=== PATIENT | male | born 1970 | race African-American/Black ===

== ENCOUNTER 2018-03-20 09:13 | Day surgery (SDC) | payer OTHER ==
[2018-03-20] MEDS: NS 1,000 ML IV (09:25)
[2018-03-20] MEDS ORDERED: PROPOFOL 200 MG/20 ML VIAL As Ordered ×4 (09:38→10:30)
== END 2018-03-20 10:32 | disposition home or self-care (01) ==
LOC: M OPP 09:13
DX: K64.8 Other hemorrhoids (principal); K63.89 Other specified diseases of intestine; D12.4 Benign neoplasm of descending colon; K92.1 Melena; F32.9 Major depressive disorder, single episode, unspecified; F41.9 Anxiety disorder, unspecified; G47.30 Sleep apnea, unspecified; R51 Headache; F17.210 Nicotine dependence, cigarettes, uncomplicated; Z98.890 Other specified postprocedural states
CPT/HCPCS: 45385

== ENCOUNTER 2021-08-11 17:19 | Emergency (ER) | payer OTHER ==
[~2021-08-11] VITALS: Ht 188 cm; Wt 110.8 kg
[~2021-08-11 17:19] MED LIST: FLUO20CA22 PO
[2021-08-11] MEDS ORDERED: ASPIRIN 81 MG CHEW TABLET PO ONE (18:00)
[2021-08-11] MEDS ORDERED: NITROGLYCERIN 0.4 MG SUBL TABLET As Ordered ONE (18:01)
[2021-08-11] MEDS ORDERED: ASPIRIN 81 MG CHEW TABLET As Ordered ONE (18:01)
[2021-08-11] MEDS: NITROGLYCERIN 0.4 MG SUBL TABLET SL PRN ×3 (18:06→18:44)
[2021-08-11] MEDS ORDERED: ISOVUE-370 76% 100ML VIAL As Ordered ONE (18:15)
[2021-08-11 18:16] LABS: BASO # 0.1 10^3/uL (0.0-0.2); BASO % 0.8 % (0.0-1.0); EOS # 0.1 10^3/uL (0.0-0.5); EOS % 0.8 % (0.0-3.0); HEMATOCRIT 43.7 % (42.0-52.0); HEMOGLOBIN 14.6 g/dl (13.5-17.5); LYMPH # 1.6 10^3/uL (1.5-5.0); LYMPH % 16.3 % (24.0-44.0); MEAN CORPUSCULAR HEMOGLOBIN 28.3 pg (27.0-33.0); MEAN CORPUSCULAR HGB CONC 33.4 g/dl (32.0-36.5); MEAN CORPUSCULAR VOLUME 84.9 fl (80.0-96.0); MONO # 0.6 10^3/uL (0.0-0.8); MONO % 6.3 % (2.0-8.0); NEUTROPHILS # 7.6 10^3/uL (1.5-8.5); NEUTROPHILS % 75.5 % (36.0-66.0); PLATELET COUNT, AUTOMATED 207 10^3/uL (150-450); RED BLOOD COUNT 5.15 10^6/uL (4.30-6.10); WHITE BLOOD COUNT 10.1 10^3/uL (4.0-10.0)
[2021-08-11 18:27] LABS: PROTHROMBIN TIME 13.6 SECONDS (12.7-14.5)
[2021-08-11 18:28] LABS: PARTIAL THROMBOPLASTIN TIME 27.6 SECONDS (25.9-37.0)
[2021-08-11] MEDS ORDERED: LABETALOL 100MG/20ML VIAL IV STA ×2 (18:42→19:10)
[2021-08-11] MEDS ORDERED: LABETALOL 100MG/20ML VIAL As Ordered ONE (18:43)
[2021-08-11] MEDS ORDERED: TENECTEPLASE 50 MG KIT (TNKase) (J3101 PER 1MG) IV ONE (18:45)
[2021-08-11] MEDS ORDERED: HEPARIN SOD (PORCINE) 5000UNITS/ML 1ML VIAL/SYRINGE IV ONE (18:45)
[2021-08-11] MEDS ORDERED: HEPARIN DRIP 25,000 UNITS in IV 1 EA IV SCH (18:45)
[2021-08-11] MEDS ORDERED: CLOPIDOGREL 300 MG TAB (PLAVIX) PO ONE (18:45)
[2021-08-11 18:48] LABS: ALBUMIN 3.9 GM/DL (3.2-5.2); ALT/SGPT 42 U/L (12-78); BILIRUBIN,DIRECT < 0.1 MG/DL (0.0-0.2); BILIRUBIN,TOTAL 0.3 MG/DL (0.2-1.0); BLOOD UREA NITROGEN 14 MG/DL (7-18); CALCIUM LEVEL 9.3 MG/DL (8.5-10.1); CARBON DIOXIDE LEVEL 26 MEQ/L (21-32); CHLORIDE LEVEL 108 MEQ/L (98-107); CK-MB VALUE MASS 1.9 NG/ML (<3.6); CPK CREATINE PHOSPHOKINASE 220 U/L (39-308); CREATININE FOR GFR 1.05 MG/DL (0.70-1.30); FREE T4 0.87 NG/DL (0.76-1.46); GLOMERULAR FILTRATION RATE > 60.0 (>60); GLUCOSE, FASTING 95 MG/DL (70-100); LIPASE 88 U/L (73-393); MB/CK RELATIVE INDEX 0.86 (< OR =4); POTASSIUM SERUM 3.9 MEQ/L (3.5-5.1); SODIUM LEVEL 142 MEQ/L (136-145); TOTAL PROTEIN 7.5 GM/DL (6.4-8.2); TROPONIN I 0.06 NG/ML (< 0.10)
[2021-08-11 18:51] LABS: RSV AMPLIFICATION NEGATIVE (NEGATIVE)
[2021-08-11 20:18] VITALS: BP 185/116
[2021-08-11 20:19] VITALS: BP 171/102
--- NOTE | 2021-08-11 20:22 | REPVR ---
PROCEDURE INFORMATION: Exam: CTA Chest With Contrast Exam date and time: 08/11/2021 6:41 PM Age: 51 years old Clinical indication: Pain; Shortness of breath; Angina pectoris; Additional info: Chest pain TECHNIQUE: Imaging protocol: Computed tomographic angiography of the chest with contrast. 3D rendering (Not supervised by radiologist): MIP and/or 3D reconstructed images were created by the technologist. Radiation optimization: All CT scans at this facility use at least one of these dose optimization techniques: automated exposure control; mA and/or kV adjustment per patient size (includes targeted exams where dose is matched to clinical indication); or iterative reconstruction. Contrast material: ISOVUE 370; Contrast volume: 100 ml; Contrast route: INTRAVENOUS (IV); COMPARISON: No relevant prior studies available. FINDINGS: Pulmonary arteries: No pulmonary embolism. Aorta: The thoracic aorta is intact and patent. There is no thoracic aortic aneurysm, pseudoaneurysm, penetrating atherosclerotic ulcer, intramural hematoma, or dissection. Trachea: Normal. Bronchial tree: Normal. Lungs: There is mild dependent atelectasis in both lower lobes. The lungs are otherwise clear. There is no lung consolidation or mass. No emphysematous changes or interstitial lung disease is noted. Pleural spaces: Normal. No pneumothorax or pleural effusion. Heart: No cardiomegaly or pericardial effusion. The ratio of the diameter of the right ventricle to the diameter of the left ventricle measures less than 1, which is within normal limits and there is no CT evidence for a right ventricular strain. Mediastinal space: No mediastinal mass, fluid collection, or pneumomediastinum. Lymph nodes: No enlarged lymph nodes. Liver: There is a 9 mm cyst in segment 2 of the left hepatic lobe, for which imaging follow-up is not necessary. The liver was not fully imaged. Spleen: Unremarkable. No splenomegaly is noted. Adrenal glands: Normal. No adrenal mass is noted. Bones/joints: There is no fracture or dislocation. No suspicious osteolytic or osteoblastic lesion. Soft tissues: Unremarkable. IMPRESSION: 1. No acute findings in the chest. No pulmonary embolism. 2. No thoracic aortic aneurysm, pseudoaneurysm, intramural hematoma, penetrating atherosclerotic ulcer, or dissection. Electronically signed by: Balta Lamar On 08/11/2021 20:21:40 PM
--- NOTE | 2021-08-12 20:01 | ECGEPIP ---
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
== END 2021-08-11 20:20 | disposition short-term general hospital (02) ==
LOC: M ED 17:19
DX: I21.3 ST elevation (STEMI) myocardial infarction of unspecified site (principal); F41.9 Anxiety disorder, unspecified; F32.9 Major depressive disorder, single episode, unspecified; F17.200 Nicotine dependence, unspecified, uncomplicated; G47.33 Obstructive sleep apnea (adult) (pediatric); Z79.899 Other long term (current) drug therapy
CPT/HCPCS: 71275; 80047; 80048; 80076; 82550; 82553; 83690; 84439; 84443; 84484; 85025; 85610; 85730; 87631; 93005; 93041; 94760; 96365; 96375; 99285; J1644; J3101; Q9967

== ENCOUNTER 2021-11-05 06:39 | Emergency (ER) | payer OTHER ==
[~2021-11-05] VITALS: Ht 188 cm; Wt 112.6 kg
--- OUTSIDE RECORDS SUMMARY | 2021-11-05 06:45 | CCD ---
Author Author [facility] Organization [facility] Address Unknown Phone Unavailable Care Team Providers Care Mortgage Protection Sales Name Role Phone Jarrett, Akila PAINTING MACHINE OPERATOR Unavailable Unavailable Jarrett, Akila PAINTING MACHINE OPERATOR Unavailable Unavailable Jarrett, Akila PAINTING MACHINE OPERATOR Unavailable Unavailable Jarrett, Akila PAINTING MACHINE OPERATOR Unavailable Unavailable Jarrett, Akila PAINTING MACHINE OPERATOR Unavailable Unavailable Jarrett, Akila PAINTING MACHINE OPERATOR Unavailable Unavailable Jarrett, Akila PAINTING MACHINE OPERATOR Unavailable Unavailable Jarrett, Akila PAINTING MACHINE OPERATOR Unavailable Unavailable Jarrett, Akila PAINTING MACHINE OPERATOR Unavailable Unavailable Jarrett, Akila PAINTING MACHINE OPERATOR Unavailable Unavailable Jarrett, Akila PAINTING MACHINE OPERATOR Unavailable Unavailable Jarrett, Akila PAINTING MACHINE OPERATOR Unavailable Unavailable Jarrett, Akila PAINTING MACHINE OPERATOR Unavailable Unavailable Watson, L Vane PA Unavailable Unavailable Wtason, L Vane PA Unavailable Unavailable Watson, L Vane PA Unavailable Unavailable Watson, L Vane PA Unavailable Unavailable Watson, L Vane PA Unavailable Unavailable Watson, L Vane PA Unavailable Unavailable Watson, L Vane PA Unavailable Unavailable Watson, L Vane PA Unavailable Unavailable Watson, L Vane PA Unavailable Unavailable Watson, L Vane PA Unavailable Unavailable Watson, L Vane PA Unavailable Unavailable Watson, L Vane PA Unavailable Unavailable Watson, L Vane PA Unavailable Unavailable Watson, L Vane PA Unavailable Unavailable Watson, L Vane PA Unavailable Unavailable Watson, L Vane PA Unavailable Unavailable Watson, L Vane PA Unavailable Unavailable Watson, L Vane PA Unavailable Unavailable Watson, L Vane PA Unavailable Unavailable Watson, L Vane PA Unavailable Unavailable Watson, L Vane PA Unavailable Unavailable Watson, L Vane PA Unavailable Unavailable Watson, L Vane PA Unavailable Unavailable Watson, L Vane PA Unavailable Unavailable Watson, L Vane PA Unavailable Unavailable Watson, L Vane PA Unavailable Unavailable Watson, L Vane PA Unavailable Unavailable Awtson, L Vane PA Unavailable Unavailable Watson, L Vane PA Unavailable Unavailable Watson, L Vane PA Unavailable Unavailable Watson, L Vane PA Unavailable Unavailable Watson, L Vane PA Unavailable Unavailable Watson, L Vane PA Unavailable Unavailable Watson, L Vane PA Unavailable Unavailable Watson, L Vane PA Unavailable Unavailable Watson, L Vane PA Unavailable Unavailable Watson, L Vane PA Unavailable Unavailable Watson, L Vane PA Unavailable Unavailable Watson, L Vane PA Unavailable Unavailable Guadarrama, L Angelita RPA Unavailable Unavailable Guadarrama, L Angelita RPA Unavailable Unavailable Guadarrama, L Angelita RPA Unavailable Unavailable Guadarrama, L Angelita RPA Unavailable Unavailable Guadarrama, L Angelita RPA Unavailable Unavailable Guadarrama, L Angelita RPA Unavailable Unavailable Guadarrama, L Angelita RPA Unavailable Unavailable Guadarrama, L Angelita RPA Unavailable Unavailable Guadarrama, L Angelita RPA Unavailable Unavailable Guadarrama, L Angelita RPA Unavailable Unavailable Guadarrama, L Angelita RPA Unavailable Unavailable Guadarrama, L Angelita RPA Unavailable Unavailable Guadarrama, L Angelita RPA Unavailable Unavailable Guadarrama, L Angelita RPA Unavailable Unavailable Guadarrama, L Angelita RPA Unavailable Unavailable Guadarrama, L Angelita RPA Unavailable Unavailable Guadarrama, L Angelita RPA Unavailable Unavailable Guadarrama, L Angelita RPA Unavailable Unavailable Guadarrama, L Angelita RPA Unavailable Unavailable Guadarrama, L Angelita RPA Unavailable Unavailable Guadarrama, L Angelita RPA Unavailable Unavailable Guadarrama, L Angelita RPA Unavailable Unavailable Guadarrama, L Angelita RPA Unavailable Unavailable Guadarrama, L Angelita RPA Unavailable Unavailable Guadarrama, L Angelita RPA Unavailable Unavailable Guadarrama, L Angelita RPA Unavailable Unavailable Guadarrama, L Angelita RPA Unavailable Unavailable Guadarrama, L Angelita RPA Unavailable Unavailable Guadarrama, L Angelita RPA Unavailable Unavailable Guadarrama, L Angelita RPA Unavailable Unavailable Guadarrama, L Angelita RPA Unavailable Unavailable Guadarrama, L Angelita RPA Unavailable Unavailable HAYLEY, S AYMAN MD Unavailable Unavailable HAYLEY, S AYMAN MD Unavailable Unavailable HAYLEY, S AYMAN MD Unavailable Unavailable HAYLEY, S AYMAN MD Unavailable Unavailable HAYLEY, S AYMAN MD Unavailable Unavailable HAYLEY, S AYMAN MD Unavailable Unavailable HAYLEY, S AYMAN MD Unavailable Unavailable HAYLEY, S AYMAN MD Unavailable Unavailable HAYLEY, S AYMAN MD Unavailable Unavailable HAYLEY, S AYMAN MD Unavailable Unavailable HAYLEY, S AYMAN MD Unavailable Unavailable HAYLEY, S AYMAN MD Unavailable Unavailable HAYLEY, S AYMAN MD Unavailable Unavailable HAYLEY, S AYMAN MD Unavailable Unavailable HAYLEY, S AYMAN MD Unavailable Unavailable HAYLEY, S AYMAN MD Unavailable Unavailable HAYLEY, S AYMAN MD Unavailable Unavailable HAYLEY, S AYMAN MD Unavailable Unavailable HAYLEY, S AYMAN MD Unavailable Unavailable HAYLEY, S AYMAN MD Unavailable Unavailable HAYLEY, S AYMAN MD Unavailable Unavailable HAYELY, S AYMAN MD Unavailable Unavailable HAYLEY, S AYMAN MD Unavailable Unavailable HAYLEY, S AYMAN MD Unavailable Unavailable HAYLEY, S AYMAN MD Unavailable Unavailable HAYLEY, S AYMAN MD Unavailable Unavailable HAYLEY, S AYMAN MD Unavailable Unavailable HAYLEY, S AYMAN MD Unavailable Unavailable HAYLEY, S AYMAN MD Unavailable Unavailable HAYLEY, S AYMAN MD Unavailable Unavailable HAYLEY, S AYMAN MD Unavailable Unavailable HAYLEY, S AYMAN MD Unavailable Unavailable HAYLEY, S AYMAN MD Unavailable Unavailable HAYLEY, S AYMAN MD Unavailable Unavailable HAYLEY, S AYMAN MD Unavailable Unavailable HAYLEY, S AYMAN MD Unavailable Unavailable HAYLEY, S AYMAN MD Unavailable Unavailable HAYLEY, S AYMAN MD Unavailable Unavailable HAYLEY, S AYMAN MD Unavailable Unavailable HAYLEY, S AYMAN MD Unavailable Unavailable HAYLEY, S AYMAN MD Unavailable Unavailable HAYLEY, S AYMAN MD Unavailable Unavailable HAYLEY, S AYMAN MD Unavailable Unavailable HAYLEY, S AYMAN MD Unavailable Unavailable HAYLEY, S AYMAN MD Unavailable Unavailable HAYLEY, S AYMAN MD Unavailable Unavailable HAYLEY, S AYMAN MD Unavailable Unavailable HAYELY, S AYMAN MD Unavailable Unavailable HAYLEY, S AYMAN MD Unavailable Unavailable HAYLEY, S AYMAN MD Unavailable Unavailable HAYLEY, S AYMAN MD Unavailable Unavailable HAYLEY, S AYMAN MD Unavailable Unavailable HAYLEY, S AYMAN MD Unavailable Unavailable HAYLEY, S AYMAN MD Unavailable Unavailable HAYLEY, S AYMAN MD Unavailable Unavailable HAYLEY, S AYMAN MD Unavailable Unavailable HAYLEY, S AYMAN MD Unavailable Unavailable HAYLEY, S AYMAN MD Unavailable Unavailable HAYLEY, S AYMAN MD Unavailable Unavailable HAYLEY, S AYMAN MD Unavailable Unavailable HAYLEY, S AYMAN MD Unavailable Unavailable HAYLEY, S AYMAN MD Unavailable Unavailable HAYLEY, S AYMAN MD Unavailable Unavailable HAYLEY, S AYMAN MD Unavailable Unavailable HAYLEY, S AYMAN MD Unavailable Unavailable HAYLEY, S AYMAN MD Unavailable Unavailable HAYLEY, S AYMAN MD Unavailable Unavailable HAYLEY, S AYMAN MD Unavailable Unavailable HAYLEY, S AYMAN MD Unavailable Unavailable HAYLEY, S AYMAN MD Unavailable Unavailable HAYLEY, S AYMAN MD Unavailable Unavailable HAYLEY, S AYMAN MD Unavailable Unavailable HAYLEY, S AYMAN MD Unavailable Unavailable HAYLEY, S AYMAN MD Unavailable Unavailable HAYLEY, S AYMAN MD Unavailable Unavailable HAYLEY, S AYMAN MD Unavailable Unavailable HAYLEY, S AYMAN MD Unavailable Unavailable HAYLEY, S AYMAN MD Unavailable Unavailable HAYLEY, S AYMAN MD Unavailable Unavailable HAYLEY, S AYMAN MD Unavailable Unavailable HAYLEY, S AYMAN MD Unavailable Unavailable HAYLEY, S AYMAN MD Unavailable Unavailable HAYLEY, S AYMAN MD Unavailable Unavailable HAYLEY, S AYMAN MD Unavailable Unavailable HAYLEY, S AYMAN MD Unavailable Unavailable HAYLEY, S AYMAN MD Unavailable Unavailable HAYLEY, S AYMAN MD Unavailable Unavailable Re-disclosure Warning The records that you are about to access may contain information from federally-assisted alcohol or drug abuse programs. If such information is present, then the following federally mandated warning applies: This information has been disclosed to you from records protected by federal confidentiality rules (42 CFR part 2). The federal rules prohibit you from making any further disclosure of this information unless further disclosure is expressly permitted by the written consent of the person to whom it pertains or as otherwise permitted by 42 CFR part 2. A general authorization for the release of medical or other information is NOT sufficient for this purpose. The Federal rules restrict any use of the information to criminally investigate or prosecute any alcohol or drug abuse patient.The records that you are about to access may contain highly sensitive health information, the redisclosure of which is protected by Article 27-F of the [facility] Public Health law. If you continue you may have access to information: Regarding HIV / AIDS; Provided by facilities licensed or operated by the [facility] Office of Mental Health; or Provided by the [facility] Office for People With Developmental Disabilities. If such information is present, then the following [facility] mandated warning applies: This information has been disclosed to you from confidential records which are protected by state law. State law prohibits you from making any further disclosure of this information without the specific written consent of the person to whom it pertains, or as otherwise permitted by law. Any unauthorized further disclosure in violation of state law may result in a fine or snf sentence or both. A general authorization for the release of medical or other information is NOT sufficient authorization for further disc losure. Family History Family Member Name Family Member Gender Family Member Status Date o f Status Description Data Source(s) Unknown Unknown Problem [facility] ([facility], ) Encounters Encounter Providers Location Date Indications Data Source(s ) Outpatient Attender: Vane [email or web address].[email or web address] 12/2020 12:00:00 AM EDT - 08/31/2021 11:49:10 AM EDT [facility] Inpatient Attender: KEMAL VASQUES MDAdmitter: KEMAL FOSTER MD [id number] 08/11/2021 09:43:00 PM EDT - 08/13/2021 12:40:00 PM EDT [facility] Patient discharged. Outpatient Attender: Angelita Park/Nico/Casey estrella 06/11/2021 11:15:00 AM EDT [facility] ([facility] Outpatient Attender: Akila Jarrett NP Maite Lugo Beatriz felix 03/07/2021 09:15:00 AM EDT [facility] ([facility]) Medications Medication Brand Name Start Date Product Form Dose Route Admi nistrative Instructions Pharmacy Instructions Status Indications Reaction Description Data Source(s) 80 mg 08/17/2021 12:00:00 AM EDT tablet 30 TAKE ONE TABLET BY MOUTH EVERY DAY TAKE ONE TABLET BY MOUTH EVERY DAY SOLD: 09/19/2021 [facility] 80 mg 08/17/2021 12:00:00 AM EDT tablet 30 TAKE ONE TABLET BY MOUTH EVERY DAY TAKE ONE TABLET BY MOUTH EVERY DAY SOLD: 08/17/2021 [facility] clopidogrel 75 MG Oral Tablet clopidogrel (PLAVIX) 75 MG tablet clopidogrel (PLAVIX) 75 MG tablet 08/14/2021 12:00:00 AM EDT 75 mg Oral active Take 1 tablet (75 mg total) by mouth daily [facility] Aspirin 81 MG Chewable Tablet aspirin 81 MG chewable t ablet aspirin 81 MG chewable tablet 08/14/2021 12:00:00 AM EDT 81 mg Oral ac tive Chew 1 tablet (81 mg total) daily [facility] atorvastatin 80 MG Oral Tablet atorvastatin (LIPITOR) 80 MG tablet atorvastatin (LIPITOR) 80 MG tablet 08/14/2021 12:00:00 AM EDT 80 mg Oral active Take 1 tablet (80 mg total) by mouth daily [facility] Metoprolol Tartrate 25 MG Oral Tablet me toprolol tartrate (LOPRESSOR) 25 MG tablet metoprolol tartrate (LOPRESSOR) 25 MG tablet 08/13/2021 12:0 0:00 AM EDT 25 mg Oral active Take 1 tablet (2 5 mg total) by mouth 2 (two) times a day [facility] Acetaminophen 325 MG Oral Tablet acetaminophen (TYLENO L) 325 MG tablet acetaminophen (TYLENOL) 325 MG tablet 08/13/2021 12:00:00 AM EDT 65 0 mg Oral active Take 2 tablets (650 mg total) by mouth every 4 (four) hours as needed [facility] 25 mg 08/13/2021 12:00:00 AM EDT tablet 60 TAKE ONE TABLET BY MOUTH TWICE A DAY TAKE ONE TABLET BY MOUTH TWICE A DAY SOLD: 09/19/2021 [facility] 75 mg 08/13/2021 12:00:00 AM EDT tablet 30 TAKE ONE TABLET BY MOUTH EVERY DAY TAKE ONE TABLET BY MOUTH EVERY DAY SOLD: 09/19/2021 [facility] 75 mg 08/13/2021 12:00:00 AM EDT tablet 30 TAKE ONE TABLET BY MOUTH EVERY DAY TAKE ONE TABLET BY MOUTH EVERY DAY SOLD: 08/13/2021 [facility] 0.4 mg 08/13/2021 12:00:00 AM EDT tablet, sublingual [address] PLACE 1 TABLET UNDER THE TONGUE EVERY 5 MINTUES NEEDED FOR CHEST PAIN PLACE 1 TABLET UNDER THE TONGUE EVERY 5 MINTUES NEEDED FOR CHEST PAIN SOLD: 08/13/2021 [facility] 25 mg 08/13/2021 12:00:00 AM EDT tablet 60 TAKE ONE TABLET BY MOUTH TWICE A DAY TAKE ONE TABLET BY MOUTH TWICE A DAY SOLD: 08/13/2021 [facility] Nitroglycerin 0.4 MG Sublingual Tablet n itroglycerin (NITROSTAT) 0.4 MG SL tablet nitroglycerin (NITROSTAT) 0.4 MG SL tablet 08/13/2021 12:00:00 A M EDT 0.[address] 1 t ablet (0.4 mg total) under the tongue every 5 (five) minutes as needed for chest pain [facility] sodium chloride 0.9% (NS) infusion 5396-5390-36 08/12/2021 11:00:00 AM EDT 75 mL/h Intravenous completed at 75 mL /hr, 75 mL/hr, Intravenous, Continuous, Starting on 08/12/21 at 1100, For 6 hours, Post-op [facility] Medication administered onsite iopamidol (ISOVUE-370) 76 % 10060 08/12/2021 09:44:49 AM EDT active As needed, Starting on 08/12/21 at 0944, Intra-Proc edure [facility] Medication administered onsite 1 ML heparin sodium, porcine 1000 UNT/ML Injection hep sim (porcine) injection heparin (porcine) injection 08/12/2021 09:28:34 AM EDT active As needed, Starting on 08/12/21 at 0928, Intra-Procedure [facility] Medication administered onsite 4 ML Verapamil hydrochloride 2.5 MG/ML Injection verap carlos (ISOPTIN) injection verapamil (ISOPTIN) injection 08/12/2021 09:28:15 AM EDT active As needed, Starting on 08/12/21 at 0928, Intra-Procedure [facility] Medication administered onsite lidocaine 1 % injection 2041-0520-40 08/12/2021 09:27:49 AM EDT active As needed, Starting on Sun at 0927, Intra-Procedure [facility] Medication administered onsite 2 ML Midazolam 1 MG/ML Injection midazolam (VERSED) in jection midazolam (VERSED) injection 08/12/2021 09:27:42 AM EDT active As needed, Starting on 08/12/21 at 0927, IntraProcedure [facility] Medication administered onsite fentaNYL Citrate (PF) (SUBLIMAZE) injection 5009-0035-18 08/12/2021 09:27:30 AM EDT active As neede d, Starting on 08/12/21 at 0927, Intra-Procedure [facility] Medication administered onsite Aspirin 81 MG Chewable Tablet aspirin chewable tablet 81 mg aspirin chewable tablet 81 mg 08/12/2021 09:00:00 AM EDT 81 mg Oral activ e 81 mg, Oral, Daily, First dose on 08/12/21 at 0900 [facility] Medication administered onsite clopidogrel 75 MG Oral Tablet clopidogrel (PLAVIX) tab let 75 mg clopidogrel (PLAVIX) tablet 75 mg 08/12/2021 09:00:00 AM EDT 75 mg Oral active 75 mg, Oral, Daily, First dose on 08/12/21 at 0900 [facility] Medication administered onsite potassium chloride (KLOR-CON) packet 20 mEq [id number] 08/12/2021 08:00:00 AM EDT 20 meq Oral completed 20 mEq , Oral, Once, On 08/12/21 at 0800, For 1 dose [facility] Medication administered onsite normal saline flush 0.9 % injection 3 mL [id number] 08/12/2021 06:00:00 AM EDT 3 mL Intravenous active 3 mL , Intravenous, Every 8 hours (scheduled), First dose on 08/12/21 at 0600, Pre-op
Rapid push positive pressure flushing shall be performed with a 10 cc normal saline syringe to check the PATENCY of a PIV site prior to any infusion therapy initiation unless resistance is met.
[facility] Medication administered onsite normal saline flush 0.9 % injection 3 mL [id number] 08/12/2021 06:00:00 AM EDT 3 mL Intravenous active 3 mL , Intravenous, Every 8 hours (scheduled), First dose on 08/12/21 at 0600, Pre-op
Rapid push positive pressure flushing shall be performed with a 10 cc normal saline syringe to check the PATENCY of a PIV site prior to any infusion therapy initiation unless resistance is met.
[facility] Medication administered onsite sodium chloride 0.9% (NS) infusion [id number] 08/12/2021 04:00:00 AM EDT 100 mL/h Intravenous active at 100 m L/hr, 100 mL/hr, Intravenous, Continuous, Starting on 08/12/21 at 0400, Pre-op
Start two hours prior to scheduled start time
[facility] Medication administered onsite atorvastatin 80 MG Oral Tablet atorvastatin (LIPITOR) tablet 80 mg atorvastatin (LIPITOR) tablet 80 mg 08/12/2021 12:00:00 AM EDT 80 mg Oral active 80 mg, Oral, Daily, First dose on 08/12/21 at 0000 [facility] Medication administered onsite normal saline flush 0.9 % injection 3 mL [id number] 08/12/2021 12:00:00 AM EDT 3 mL Intravenous aborted 3 mL , Intravenous, Every 8 hours (scheduled), First dose on 08/12/21 at 0000
Rapid push positive pressure flushing shall be performed with a 10 cc normal saline syringe to check the PATENCY of a PIV site prior to any infusion therapy initiation unless resistance is met.
[facility] Medication administered onsite Metoprolol Tartrate 25 MG Oral Tablet me toprolol tartrate (LOPRESSOR) tablet 25 mg metoprolol tartrate (LOPRESSOR) tablet 25 mg 08/12/2021 12:00:00 AM EDT 25 mg Oral active 25 mg, Ora l, 2 times daily, First dose on 08/12/21 at 0000
Do not administer until U tox results Hold for HR less than 60 or SBP less than 100
[facility] Medication administered onsite nitroglycerin infusion 400 mcg/mL [id number] 08/12/2021 12:00:00 AM EDT ug/min Intravenous aborted 0-150 mc g/min (0-22.5 mL/hr), Intravenous, Continuous, Starting on 08/12/21 at 0000
Start at 5 mcg/min, titrate to goal of no pain and SBP < 160, max dose 100 mcg/min. Unless otherwise specified, titrate by no more than 5 mcg/min every 5 minutes (may increase by 10 mcg/min every 5 minutes if current rate exceeds 20 mcg/min). Infuse via single port IV tubing ([employer] Infusion Set reference #[id number]). Medication and tubing is to be discarded if infusion off for 4 hours.
[facility] Medication administered onsite Acetaminophen 325 MG Oral Tablet acetaminophen (TYLENO L) 325 MG tablet 650 mg acetaminophen (TYLENOL) 325 MG tablet 650 mg 08/11/2021 11:07:22 PM EDT 650 mg Oral active 650 mg, Or al, Every 4 hours PRN, mild pain (1-3), headaches, Starting on 08/11/21 at 2307
"Maximum dose of acetaminophen is 4,000 mg from all sources in 24 hours."
[facility] Medication administered onsite ondansetron (ZOFRAN) injection 4 mg [id number] 08/11/2021 11:07:0 7 PM EDT 4 mg Intravenous active 4 mg, In travenous, Every 4 hours PRN, nausea, vomiting, Starting on 08/11/21 at 2307 [facility] Medication administered onsite 2 ML Metoclopramide 5 MG/ML Prefilled Travon franklin metoclopramide (REGLAN) injection 10 mg metoclopramide (REGLAN) injection 10 mg 08/11/2021 11:07:07 PM E DT 10 mg Intravenous active 10 mg, I ntravenous, Every 6 hours PRN, for Nausea/Vomiting not relieved by zofran, Starting on 08/11/21 at 2307 [facility] Medication administered onsite Nitroglycerin 0.02 MG/MG Topical Ointmen t nitroglycerin (NITROSTAT) 2 % ointment 0.5 inch nitroglycerin (NITROSTAT) 2 % ointment 0.5 inch 2020 11:00:00 PM EDT 0.5 g Topical aborted 0.5 inch (0.5 g), Topical, Every 6 hours (scheduled), First dose on 08/11/21 at 2300
1 inch = 1 gram
[facility] Medication administered onsite 500 ML heparin sodium, porcine 50 UNT/ML Injection heparin infusion 25,000 units in 500 mL 0.45% NaCl heparin infusion 25,000 units in 500 mL 0.45% NaCl 08/11/2021 11:00:00 PM EDT 11 U/kg/h Intravenous aborted 11 Units/kg/hr 110.8 kg (24.376 mL/hr, rounded to 24.4 mL/hr), Intravenous, at 24.4 mL/hr, Continuous, Starting on 08/11/21 at 2300
For Cardiac/BridgeaPTT (seconds) Heparin Dose (weight based)< 34 Bolus: 60 units/kg IV (Maximum bolus: 5,000 units) and increase infusion 3 units/kg/hr IV34 - 50 Bolus: 30 units/kg IV (Maximum bolus: 5,000 units) and increase infusion 2 units/kg/hr IV50.1 - 58 No bolus. Increase infusion 1 unit/kg/hr IV58.1 - 87 Therapeutic, No Bexsnq96.1 - 97 Decrease infusion 1 unit/kg/hr IV 97.1 - 110Hold infusion for 30 minutes & decrease infusion 2 units/kg/hr IV> 110 Call MD if patient is bleeding. Hold infusion for 60 minutes & decrease infusion 3 units/kg/hr IVInitial heparin IV infusion rate:Do not exceed 1000 units/hr or 12 units/kg/hr initially (whichever is less)Infuse this medication only through single port tubing ([employer] Infusion Set ref [id number]). Medication and tubing is to be discarded if infusion off for 4 hours.
[facility] Medication administered onsite 1 ML Lorazepam 2 MG/ML Injection LORazepam (ATIVAN) in jection 1-3 mg LORazepam (ATIVAN) injection 1-3 mg 08/11/2021 10:48:01 PM EDT mg Intrave nous active 1-3 mg, Intravenous, As needed, GMAW, Starting on 08/11/21 at 2248, For 7 days
GMAW Score IVP/IM dose 0 &nbsp ; None &n bsp; &nbs p; &nbs p; &n bsp; &a mp;nbsp; 1 to 3 &nbs p; 1 mg & nbsp; &nb sp; &nb sp; &nbsp ; &nbsp ; & nbsp; 4 to 7 &n bsp; 2 mg &am p;nbsp; & nbsp; & nbsp; &nb sp; &nb sp; &nbsp ; 8 to 10 3 mg & amp;nbsp; &nbsp ; &am p;nbsp; & nbsp; & nbsp; &nb sp; GMAW reassessment is every 2 hours for 5 days. If treatment is needed prior, notify provider.
[facility] Medication administered onsite 1 ML heparin sodium, porcine 1000 UNT/ML Injection heparin (porcine) injection 100-5,000 Units heparin (porcine) injection 100-5,000 Units 08/11/2021 09:53:18 PM EDT U Intravenous aborted 100- 5,000 Units, Intravenous, As needed, other, Starting on 08/11/21 at 2153
Round dose to nearest 100 units aPTT: < 34 &n bsp; Bolus: 60 units/kg IV (Maximum bolus: 5,000 units) 34 - 50 Bolus: 30 units/kg IV (Maximum bolus: 5,000 units)
[facility] Medication administered onsite Insurance Providers Payer name Policy type / Coverage type Policy ID Covered alliance party ID Covered alliance party's relationship to ochoa Policy [employer] Plan Information INSURANCE COVID-19 COVID Jodi C OVID [id number] Jodi [id number] [facility] [id number] S [id number] [facility] [id number] S [id number] [facility] (2018) Health Maintenance Organization ([facility]) [id number] Self [id number] [facility] (2018) Health Maintenance Organization (O) [id number] Self [id number] [employer] [id number] SP [id number] [facility] [id number] 18 [id number] N [employer] [facility]/P [id number] 18 [id number] N [employer] [facility]PHYSIC[facility] [id number] 18 [id number] [facility] P [id number] S [id number] [facility] HUMANA [id number] SP [id number] N [employer] [facility]/P [id number] 18 [id number] Problems, Conditions, and Diagnoses Code Display Name Description Problem Type Effective Dates Data Source(s) 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 G47.33 Obstructive sleep apnea (adult) (pediatr ic) Obstructive sleep apnea (adult) (pediatr Diagnosis 08/31/2021 10:35:26 AM EDT [facility] I21.3 ST elevation (STEMI) myocardial infarcti on of unspecified site ST elevation (STEMI) myocardial infarcti Diagnosis 08/11/2021 09:43:00 PM EDT [facility] I47.2 V tach V tach [id number] 08/11/2021 12:00:00 AM ED T [facility] F10.20 Alcohol dependence Alcohol dependence [id number] 10/2021 12:00:00 AM EDT [facility] E66.9 Obesity (BMI 30.0-34.9) Obesity (BMI 30.0-34.9) [id number] 08/11/2021 12:00:00 AM EDT [facility] Z72.0 Tobacco abuse Tobacco abuse [id number] 08/11/2021 12:00:00 AM EDT [facility] E78.5 Hyperlipidemia Hyperlipidemia [id number] 08/11/2021 12:00: 00 AM EDT [facility] G47.30 Sleep apnea Sleep apnea [id number] 08/11/2021 12:00:00 AM EDT [facility] I21.3 STEMI (ST elevation myocardial infarctio n) STEMI (ST elevation myocardial infarction) [id number] 08/11/2021 12:00:00 AM EDT [facility] Surgeries/Procedures Procedure Description Date Indications Data Source(s) ECHO TTHRC R-T 2D W/WOM-MODE COMPL SPEC&COLR DOP <td>E CHOCARDIOGRAM TRANSTHORACIC</td><td>Routine</td><td>08/13/2021 8:43 AM EDT</td><td></td><td> </td> 08/13/2021 08:43:20 AM EDT [facility] TROPONIN QUANTITATIVE <td>TROPONIN I</td><td>STAT< /td><td>08/13/2021 7:58 AM EDT</td><td></td><td> </td> 08/13/2021 07:58:00 AM EDT [facility] THROMBOPLASTIN TIME PARTIAL PLASMA/WHOLE BLOOD <td>APTT</td><td>STAT</td><td>08/13/2021 7:58 AM EDT</td><td></td><td> </td> 08/13/2021 07:58:00 AM EDT [facility] BLOOD COUNT COMPLETE AUTOMATED <td>CBC</td><td>STAT</t d><td>08/13/2021 7:58 AM EDT</td><td></td><td> </td> 08/13/2021 07:58:00 AM EDT [facility] BASIC METABOLIC PANEL CALCIUM TOTAL <td>BASIC METABOLI C PANEL</td><td>STAT</td><td>08/13/2021 7:58 AM EDT</td><td></td><td> </td> 08/13/2021 07:58:00 AM EDT [facility] ECG ROUTINE ECG W/LEAST 12 LDS TRCG ONLY W/O I&R <td>E CG 12- LEAD</td><td>Routine</td><td>08/13/2021 6:57 AM EDT</td><td></td><td></td> 08/13/2021 06:57:13 AM EDT [facility] THROMBOPLASTIN TIME PARTIAL PLASMA/WHOLE BLOOD <td>APTT</td><td>STAT</td><td>08/12/2021 10:18 PM EDT</td><td></td><td> </td> 08/12/2021 10:18:00 PM EDT [facility] THROMBOPLASTIN TIME PARTIAL PLASMA/WHOLE BLOOD <td>APTT</td><td>STAT</td><td>08/12/2021 2:47 PM EDT</td><td></td><td> </td> 08/12/2021 02:47:00 PM EDT [facility] TROPONIN QUANTITATIVE <td>TROPONIN I</td><td>STAT< /td><td>08/12/2021 12:18 PM EDT</td><td></td><td> </td> 08/12/2021 12:18:00 PM EDT [facility] THROMBOPLASTIN TIME PARTIAL PLASMA/WHOLE BLOOD <td>APTT</td><td>STAT</td><td>08/12/2021 12:18 PM EDT</td><td></td><td> </td> 08/12/2021 12:18:00 PM EDT [facility] CARDIAC CATHETERIZATION <td>CARDIAC CATHETERIZATION</td><td>Routine</td><td>08/12/2021 9:46 AM EDT</td><td> ST elevation myocardial infarction (STEMI), unspecified artery</td><td> </td> 08/12/2021 09:46:[address] elevation myocardial infarction (STEMI), unspecifie d artery [facility] ST elevation myocardial infarction (STEM I), unspecified artery ECG ROUTINE ECG W/LEAST 12 LDS W/I&R <td>ECG 12- LEAD</td><td>Routine</td><td>08/12/2021 6:51 AM EDT</td><td></td><td></td> 08/12/2021 06:51:24 AM EDT [facility] TROPONIN QUANTITATIVE <td>TROPONIN I</td><td>Routi ne</td><td>08/12/2021 4:35 AM EDT</td><td></td><td> </td> 08/12/2021 04:35:00 AM EDT [facility] THROMBOPLASTIN TIME PARTIAL PLASMA/WHOLE BLOOD <td>APTT</td><td>STAT</td><td>08/12/2021 4:35 AM EDT</td><td></td><td> </td> 08/12/2021 04:35:00 AM EDT [facility] BLOOD COUNT COMPLETE AUTOMATED <td>CBC</td><td>Routine </td><td>08/12/2021 4:35 AM EDT</td><td></td><td> </td> 08/12/2021 04:35:00 AM EDT [facility] BASIC METABOLIC PANEL CALCIUM TOTAL <td>BASIC METABOLI C PANEL</td><td>Routine</td><td>08/12/2021 4:35 AM EDT</td><td></td><td> </td> 08/12/2021 04:35:00 AM EDT [facility] TROPONIN QUANTITATIVE <td>TROPONIN I</td><td>STAT< /td><td>08/12/2021 2:16 AM EDT</td><td></td><td> </td> 08/12/2021 02:16:00 AM EDT [facility] COVID/FLU AB/RSV PCR <td>COVID/FLU AB/RSV PCR</td ><td>STAT</td><td>08/12/2021 12:46 AM EDT</td><td></td><td> </td> 08/12/2021 12:46:00 AM EDT [facility] URINE CULTURE HOLD SPECIMEN <td>URINE CULTURE HOLD SPECIMEN</td><td>Routine</td><td>08/12/2021 12:46 AM EDT</td><td></td><td> </td> 08/12/2021 12:46:00 AM EDT [facility] DRUG SCR QUAL 1 DRUG CLASS METH EA DRUG CLASS <td>URIN E TOX SCREEN</td><td>Routine</td><td>08/12/2021 12:46 AM EDT</td><td></td><td> </td> 08/12/2021 12:46:00 AM EDT [facility] NT PRO BNP <td>NT PRO BNP</td><td>Routi ne</td><td>08/11/2021 11:02 PM EDT</td><td></td><td> </td> 08/11/2021 11:02:00 PM EDT [facility] TROPONIN QUANTITATIVE <td>TROPONIN I</td><td>Timed </td><td>08/11/2021 11:02 PM EDT</td><td></td><td> </td> 08/11/2021 11:02:00 PM EDT [facility] THROMBOPLASTIN TIME PARTIAL PLASMA/WHOLE BLOOD <td>APTT</td><td>Routine</td><td>08/11/2021 11:02 PM EDT</td><td></td><td> </td> 08/11/2021 11:02:00 PM EDT [facility] PROTHROMBIN TIME <td>PROTIME-INR</td><td>Add- On</td><td>08/11/2021 11:02 PM EDT</td><td></td><td> </td> 08/11/2021 11:02:00 PM EDT [facility] BLOOD COUNT COMPLETE AUTO&AUTO DIFRNTL WBC COUNT <td>C BC AND DIFFERENTIAL</td><td>STAT</td><td>08/11/2021 11:02 PM EDT</td><td></td><td> </td> 08/11/2021 11:02:00 PM EDT [facility] THYROID STIMULATING HORMONE TSH <td>TSH</td><td>Routin e</td><td>08/11/2021 11:02 PM EDT</td><td></td><td> </td> 08/11/2021 11:02:00 PM EDT [facility] MAGNESIUM <td>MAGNESIUM</td><td>Routin e</td><td>08/11/2021 11:02 PM EDT</td><td></td><td> </td> 08/11/2021 11:02:00 PM EDT [facility] HEMOGLOBIN GLYCOSYLATED A1C <td>HEMOGLOBIN A1C</td><td>Routine</td><td>08/11/2021 11:02 PM EDT</td><td></td><td> </td> 08/11/2021 11:02:00 PM EDT [facility] ALCOHOL ANY SPECIMEN EXCEPT BREATH <td>ETHANOL</td><td >STAT</td><td>08/11/2021 11:02 PM EDT</td><td></td><td> </td> 08/11/2021 11:02:00 PM EDT [facility] LIPID PANEL <td>LIPID PANEL</td><td>Rout ine</td><td>08/11/2021 11:02 PM EDT</td><td></td><td> </td> 08/11/2021 11:02:00 PM EDT [facility] COMPREHENSIVE METABOLIC PANEL <td>COMPREHENSIVE METABO LIC PANEL</td><td>STAT</td><td>08/11/2021 11:02 PM EDT</td><td></td><td> </td> 08/11/2021 11:02:00 PM EDT [facility] XR CHEST PORTABLE <td>XR CHEST PORTABLE</td><t d>Routine</td><td>08/11/2021 10:52 PM EDT</td><td></td><td> </td> 08/11/2021 10:52:01 PM EDT [facility] ECG ROUTINE ECG W/LEAST 12 LDS TRCG ONLY W/O I&R <td>E CG 12- LEAD</td><td>Routine</td><td>08/11/2021 10:02 PM EDT</td><td></td><td></td> 08/11/2021 10:02:11 PM EDT [facility] OFFICE OUTPATIENT NEW 45 MINUTES 06/11/2021 12:00:00 A M EDT [facility] ([facility], ) Results ID Date Data Source [id number] 08/20/2021 07:37:[address] INFORMATIONPatient MRN Name Date of Age Gend*PT [id number] Jean-Claude Harris 1970 51 years M IPPT Location Admission Date/Time Visit ID Attending [id number] 08/11/212142 --- --- EPI ID CSN Admitting Provider [id number] Kemal Vasques MD([id number]) Attestation signed by Kemal Vasques MD at 08/20/2021 7:37 AMI saw and evaluated the patient and reviewed Ms. Fall's note. I agree withthe history, physical and medical decision making with the following additions,exceptions, and/or observationsNo events overnightNo CPHD stableAmbulatingDC homeSignature: Kemal Vasques MDDate: August 20, 2021Time: 7:37 AM Physician Discharge Summary Jean-Claude HarrisMRN: [id number] date: 08/11/2021ttending Physician: Kemal Vasques MDAdmission Diagnosis: STEMI (ST elevation myocardial infarction)Secondary Diagnoses: Principal Problem: STEMI (ST elevation myocardial infarction)Active Problems: Sleep apnea Hyperlipidemia Tobacco abuse Obesity (BMI 30.0-34.9) Alcohol dependence V tachPrinciple Procedures:1. LHC: Prox LAD lesion is 50% stenosed.No complications, estimated blood loss minimal.Patient presents with an interesting scenario. His LA by EKG appears to beinferior however by angiogram there is a small filling defect in the proximalLAD consistent with a clot. I elected to treat this with a drug-eluting stentfor fear of underlying plaque rupture that could be a potential source ofanother LA in the future. This was done with a large drug-eluting stent withexcellent results. Patient is chest pain-free. There might be a slightresidual filling defect within the stent and therefore I will continue heparinovernight.DAPT for 1 year.2. ECHO:1. Left ventricular cavity size is normal with mild increase in wallthickness.2. LV systolic function is normal with resting estimated ejection fraction is55-60 %.3. The left ventricular wall motion is normal.4. LV diastolic function is normal.5. Left atrial size is mildly dilated.6. Estimated PA pressure is 34 mm hg .7. 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 No significant valvular heart disease based on the 2D, M-mode, color andspectral Doppler.Indication for Admission: Jean-Claude is a 51 year old male with PMH of anxiety,depression, chronic back pain, herniated lumbar disc, sleep apnea, alcoholdependence, tobacco abuse, obesity, HLD [facility]. He states that [place] was [place] and onreturn got into an argument with his at which time the midsternal chestpain started. He initially attributed it to stress as he had also gotten into anargument with his mother earlier in the day. He does admit to previous episodesof chest pain within the last few weeks, self limiting. The pain progressed andhe was feeling numbness in his left arm. On arrival to [facility], his EKGrevealed ST elevation in leads II, III, aVF. Initial troponin negative. was consulted and recommended TNKase, heparin, asa, plavix. TNKase wasdelayed for CTA chest to r/o dissection. He had pain reduction but notelimination with SL nitro. He was transferred to [facility] for a higher level of care.On arrival to [facility], he is c/o variable CP ranging from 2 to 5 out of 10. Headmits to non-compliance with prescribed mediations and CPAP. He denies beingdiagnosed or treated for DM, HTN, HLD, but does states that his cholesterol hasbeen high in the past. He reports drinking an average of 4 beers per day and hassmoked 10 cigars a day for 23 years. There is no known family history of cardiacdisease. Heparin gtt continued. His COVID swab was negative at [facility].Pre-procedural COVID test ordered. He will be kept NPO for cath in am. Hospital Course & Complications: Pt was transferred to [facility] for further cardiacworkup. He was stable on arrival and was monitored overnight. He underwentcardiac catheterization the following morning, see results above. He toleratedthe procedure well and was continued on guideline directed therapy. He wasmonitored on telemetry until discharge. He remained in sinus rhythm and had noectopy following revascularization. His post- op course was uneventful. Heunderwent Echo today, see results above. He tolerated all medications. He wasdeemed stable for discharge to home today. All discharge instructions,limitations and medication were reviewed in detail. He verbalized understandingof the need for strict medication and follow compliance. Smoking and ETOHcessation were discussed and encouraged, as was compliance with CPAP. He wasarranged follow up with Dr Chamberlain's office in 2 weeks. He will be referred toCardiac Rehab phase 2. He will follow up with PCP office at [place] within 2weeks.Past Medical History:Past Medical History:Diagnosis Date Anxiety Chronic back pain Depression prescribed prozac, chooses not to take it Headache Hyperlipidemia denies prescription meds Lumbar herniated disc Sleep apnea admits to non-compliance with CPAP Tobacco abuseMost Recent Labs:BMP:Lab ResultsComponent Value Date NA 143 08/13/2021 K 4.0 08/13/2021 CL 111 (H) 08/13/2021 CO2 25 08/13/2021 ANIONGAP 7 08/13/2021 CALCIUM 8.5 08/13/2021 GLU 93 08/13/2021 BUN 9 08/13/2021 CREATININE 0.89 08/13/2021 GFRAA >60 08/13/2021 GFRNONAA >60 08/13/2021ardiac:Lab ResultsComponent Value Date TROPONINI 3.56 (HH) 08/13/2021 PROBNP 20 021CBC Brief:Lab ResultsComponent Value Date WBC 4.0 (L) 08/13/2021 HGB 13.6 08/13/2021 HCT 40.0 (L) 08/13/2021 PLT 175 08/13/2021HgbA1c:Lab ResultsComponent Value Date HGBA1C 5.6 08/11/2021Hyperlipidemia:Lab ResultsComponent Value Date CHOL 257 (H) 08/11/2021 TRIG 127 08/11/2021 HDL 52 08/11/2021 CHOLHDL 4.9 08/11/2021 LDLCALC 180 (H) 08/11/2021Medications:Your medication listSTART taking these medications Instructions Last Dose Given Morning Afternoon Evening Bedtime As Neededacetaminophen 325 MG tabletCommonly known as: TYLENOL Take 2 tablets (650 mg total) by mouth every 4 (four) hours as neededaspirin 81 MG chewable tabletStart taking on: August 14, 2021 Chew 1 tablet (81 mg total) dailyatorvastatin 80 MG tabletCommonly known as: LIPITORStart taking on: August 14, 2021 Take 1 tablet (80 mg total) by mouth dailyclopidogrel 75 MG tabletCommonly known as: PLAVIXStart taking on: August 14, 2021 Take 1 tablet (75 mg total) by mouth dailymetoprolol tartrate 25 MG tabletCommonly known as: LOPRESSOR Take 1 tablet (25 mg total) by mouth 2 (two) times a daynitroglycerin 0.4 MG SL tabletCommonly known as: NITROSTAT Place 1 tablet (0.4 mg total) under the tongue every 5 (five) minutes as neededfor chest painWhere to Get Your MedicationsThese medications were sent to [facility] [address] [place] - [address] [id number] [facility] [address] aspirin 81 MG chewable tablet atorvastatin 80 MG tablet clopidogrel 75 MG tablet metoprolol tartrate 25 MG tablet nitroglycerin 0.4 MG SL tabletInformation about where to get these medications is not yet availableAsk your nurse or doctor about these medications acetaminophen 325 MG tabletDischarge Exam:Vitals: Temp: [98.4 F-98.9 F] 98.4 FHeart Rate: [58-82] 58Resp: [16-18] 18BP: (101-137)/(64-82) 137/82Pleasant, comfortable, not in acute distress.Awake, alert, oriented times 3.Moves all extremities.General appearance: alert, appears stated age and cooperativeHEENT: No recent change in vision or hearing.Lungs: Clear to auscultation bilaterally.Chest wall: no tendernessHeart: RR No murmurAbdomen: Soft, nontender, bowel sounds present.Extremities: No edema. RRA site C/D/I (+) puls esPulses: 2+ and symmetricSkin: No rash or lumps.Discharged Condition:goodDisposition: Home or Self CareFollow Up: Dr Chamberlain 08/28/21; PCPSignature: FLORECITA FALL, NPDate: August 13, 2021Time: 11:33 AM Name Value Range Interpretation Code Description Data Zofia rce(s) Supporting Document(s) ID Date Data Source [id number] 08/13/2021 09:53:06 AM EDT [facility] Name Value Range Interpretation Code Description Data Zofia rce(s) Supporting Document(s) &PDF [facility] UJVKDx4lSePSRlAs15/QFTlbCEObw3EcPYaiVBf1VZrsXTRjT5DomBrzPCfMO4jHCikFD66gWYjOHM0S 0b3 [file] ICAgICAgICAgICAgICAgICAgICAgICAgICAgICAgIC EkZAZcNLEgXSHjJJBgKIVoMVBaODJaLADaDOWvQIQgZMWrPOYePLRkJO7SXXTuBWBsJLKsQXMsXYIqHD AgICAgICAgICAgICAgICAgICAgICAgICAgICAgICAgICAgICAgICAgICAgICAgICAgICAgICAgICAgIC SyBZLgAYJbWHHvOTAhEQMoIZRrZGWqEY0YCFYuLSDu ICAgICAgICAgICAgICAgICAgICAgICAgICAgICAgICAgICAgICAgICAgICAgICAgICAgICAgICAgICAg LOHhKWCaFDDcLCLyWSChDXUaWIOiZAYaAXYwOGVeJVBxZR4QLNYaKNUeGNYmCHZcCJUqUOKkRGVuFWJz ICAgICAgICAgICAgICAgICAgICAgICAgICAgICAgIC WzQZBhEJWiJZLiXHCuOAThASRfXVLkBTQhJOMvVNDyOCWfRTFiHNAgSVQqNP6NLAFpKSApEJSpWDCfZJ AgICAgICAgICAgICAgICAgICAgICAgICAgICAgICAgICAgICAgICAgICAgICAgICAgICAgICAgICAgIC UoYUBrEXXiLNDtIBQhXLLpBMUkZLBcMGLbLC2KAYMg ICAgICAgICAgICAgICAgICAgICAgICAgICAgICAgICAgICAgICAgICAgICAgICAgICAgICAgICAgICAg EPVaXZBrAGOfPMEmXMJnTNWyPMPyEKUjCAXaSVUsNGIxAMGxNM5XKIKcYAVvBKFzVBCnRIDtQGSoPSHb ICAgICAgICAgICAgICAgICAgICAgICAgICAgICAgIC MmPAImSGNkPFTwIYDgDXHcXKGaKJFbFLEjGATjHYIbSIPhTTUyOTFxPDCnWOOfFX2AEQHrOCJrUXTaSV AgICAgICAgICAgICAgICAgICAgICAgICAgICAgICAgICAgICAgICAgICAgICAgICAgICAgICAgICAgIC MdSDDoGKEdYJKhVFOdFNPwCWQbDAXcBPDkAHXiQX2E ICAgICAgICAgICAgICAgICAgICAgICAgICAgICAgICAgICAgICAgICAgICAgICAgICAgICAgICAgICAg PETjVGVlNNKhNQPxRESlBKCsANDjABDkHTZlWONuAHMlBLFuOGPuQX0XUPNzYUJkJBHyMQKlEJJpNMZe ICAgICAgICAgICAgICAgICAgICAgICAgICAgICAgIC QeHQGbQJAaGOZaDWQpLHRgHEFvGDTsCKLiYASnAMAqBFOkFUMyCNAyTNFiZFDtPDLuST0LAO69jIIom9 S7SFCjII8xnrj/Qf1ZYBgvlsLrkODfZN8DKuMlXB6gnt2VSnPqHO4kdx9GCIuUTjBtS4H6bYQoHPYhPY RVHcZpB08kLFitQv78OSmmPCHeNlSiLPs2Qp0VYbAz U5fcMPIjHrF2MWMhFeI2AVQrOhG1QKDvGqZtDIXkKUXuXD5VRPRuI057fhAnVH0ILt6JNbOvZA3ztq8A BkegNRUuPmpPTlb8NSbvUG1WxATsL9BwrENnx5eTKrKrP9DQMIZ0VOOpLx8RXCCeQzGwIFNrSVcrUD6l PXWnAQCZuBsbiyU0NF5OAE8tyaPxMT5QXbNzVh5tFj 0VUpKzY9YbG0AqYBZrNCRHPOwfDY8PIXPoTIM0GKQrQJBbWHOQWmCgP38zFG8DR5Wus82aFkX8NBWwLh RjTIquMM27xUqxgqTtoXNtdDlfRR0RFg5+DQplbmRvYmoNCnhyZWYNCjAgNDANCjAwMDAwMDAwMDAgNj A3HmBzVu1JNHGuTCWhRMJoPlZdQLTpKESrSSzdPTFu BMVhPSveQZZjDFElXU6FWpYgVPLjCkQ9BUkzKKYuRBSugt5BZWTcXLHqAWM0PKWiTFIzPMKdYDlyRGSl BLYwFoC9LTLbBRCrWT7LRsIdSZAsCGG9ShKqCYQeHGQnzp6ZDXCjQSLtHFg7QRMgHRNhCBBwBVtcJGGr VMT9VGX2CCAjGOPyUX9TKzRwNZHhTPykLPPeGGQzSP Njsv5XGVTwXDTbVgEoNTGnVKJnMKDlJSkqODXyYVC6FeZ9XJLbKBTwQT2ZIoDqZDBlSTg6IIReVYHpAY Uqdt0DJNTdUOExILctSIGqPOOiSYAoXJoeIXWaJWUhRNVhUUZaLYKyFF5QKpZfRLXqVLSoSOGcEGSeRF Eqxc9MSACcMJWvISD2HCGzNUQfBNCkPTlzFOMhQPXa GeM3ISRiZWIgVA1GTsZuRYYmSRL7IhEhBKPvMZMcke5EBHEoHGEbZtE0NnKaJGWbVRIzCNtrVSRqIEEi NhilCGXgSPWxMI6PKxRlFONlVEW2ThHiYCQvKHNawp8JHTWnSRKrXxz6SLJcEEWnZVKcSFxhJESpDSHr NuS7GLDbCOReLD0SDfJsGKCtZpQ0QpPcTSPaNMHjir 1BRMHlZQMvLCP0CqGeVLDqMOYfRIbmQDBrCBR4TtKlHZMaBRPbGF5SMiUdTWUoPgWhCjXyAJCwICBjge 0UIOSzRMUzULJdAHTaJGWnYMVaQEjoEOTySLG2IsOgPDCvRFSnEP6KYyWaMAJzLwy6UCotAPSqRPIqls 9PTVHlOHV2FMedJfShRXBeIARrUEmdDZNjAHR0MPsa QQHdCWNgPV2EVgMyNZYhKQv4PPHxFGImVVQnjz0OBBMdPEZ8EszfWEWnUQKjQXYmJDwePFXeDRC7VqTa SNHdXUJlVE0IFuAxMDAxUpTrAhIhDCHtVFLanj2KJTFyANO8Fuv2OGGzBEYeOXNtDSdnIJAhCKG1YhJ4 QVDvZZRsGG4GGbWkMFJuNoEfQNErNEHvSLZeez4QgZ AwcFlbjj4CKGrEPp6EvLlyHHSbVOdzLb7mqWAeYFNhSOPQRb9HtxStBEQeBCCAKAhdJCVhUKj2IQepFx L4SpJsONDbSdT2YLAySQByYEC6E3B5DvH6TqH7Wkt0MSP4EGR4RnAbFxIzVFC3LfU7LAF3UYuyDBR4AU U+RB1cSCg+Ll0Fh8XeboC8prXyFBx2AxAtDU8YPPGIG0SCPc== ID Date Data Source [id number] 08/13/2021 10:17:50 AM EDT [facility] Name Value Range Interpretation Code Description Data Zofia rce(s) Supporting Document(s) TROPONIN I 3.56 ng/mL (<0.05) H [facility] Less than 0.05: Myocardial injury unlike lyGreater than or equal to 0.05: Highly suggestive of myocardial injuryCorrelation with rise and/or fall ofserial troponins, clinical symptomsand ECG changes is necessary.ALERTED CRITICAL RESULT BRIAN/[id number] AT 1016 ON [id number] BY [id number] ID Date Data Source [id number] 08/13/2021 10:07:55 AM EDT [facility] Name Value Range Interpretation Code Description Data Zofia rce(s) Supporting Document(s) SODIUM 143 mmol/L (136-145) [facility] POTASSIUM 4.0 mmol/L (3.6-5.2) [facility] CHLORIDE 111 mmol/L (100-108) H [facility] CO2 25 mmol/L (22-31) [facility] ANION GAP 7 mmol/L (7-16) [facility] UREA NITROGEN 9 mg/dL (7-24) [facility] CREATININE 0.89 mg/dL (0.80-1.30) [facility] BUN/CREAT RATIO 10.1 RATIO (10.0-20.0) [facility] GLUCOSE 93 mg/dL (70-99) [facility] CALCIUM 8.5 mg/dL (8.4-10.2) [facility] GFR >60 ml/min/1.73m2 (>59) [facility] GFR ( AMER) >60 ml/min/1.73m2 (>59) [facility] GFR INTERPRETATION [facility] --NORMAL KIDNEY FUNCTION OR MILD DISEASE - GFR >OR= 60CHRONIC KIDNEY DISEASE - GFR 15 - 59RENAL FAILURE - GFR <15 Est. GFR calculation based on the MDRDstudy equation, which assumes a steadystate for creatinine. Est. GFR should notbe used for medication dosing. ID Date Data Source [id number] 08/13/2021 09:56:45 AM EDT [facility] Name Value Range Interpretation Code Description Data Zofia rce(s) Supporting Document(s) APTT 62.9 s (22.0-34.3) H [facility] ID Date Data Source [id number] 08/13/2021 09:42:48 AM EDT [facility] Name Value Range Interpretation Code Description Data Zofia rce(s) Supporting Document(s) WBC 4.0 10*3/uL (4.1-11.0) L [facility] RBC 4.73 10*6/uL (4.60-6.10) [facility] HGB 13.6 g/dL (13.5-18.0) [facility] HCT 40.0 % (41.0-53.0) L [facility] MCV 84.6 fL (80.0-95.0) [facility] MCH 28.7 pg (27.0-32.0) [facility] MCHC 33.9 g/dL (32.0-36.0) [facility] RDW 14.2 % (10.5-14.5) [facility] PLT 175 10*3/uL (150-450) [facility] MPV 8.4 fL (7.1-10.7) [facility] ID Date Data Source [id number] 08/13/2021 07:45:56 AM EDT [facility] Name Value Range Interpretation Code Description Data Zofia rce(s) Supporting Document(s) EKG [facility] IFHNWm5eWwFZGyYye2JpKuDeLPMwHF3ciqa4M3J9zWWoZ8KtoJWse8ceY7HgD6UbTEOmHGJURQ7UmYNx jb2 [file] CqzZ7FQ+Genaro+zus22CVHpSfF7fWWixCfPLjmkU6dL1 h9XJ0mZMFW2bE8NsKInfGhLlRRuVsqAjsWMqeqrabtfdkK2VpyJ+RvNoJ4XhxbzhcHQW5rsxQ4n8C+0L 54X0ekvl8Y516UDa6QdqE/LIFKkF7m/91wNvqwTvwuzVvW3eg/H+aY/d+CiTlMAfXXbjTDbtuSRlMc+x Tm4CqP6z2yY/FyvGN9noZL/BN/YbfGO/cVJ5TdIK8A oqTMzAwuEqSH9wHfUIWEU6f+d0vsLCwAjdBU44GcySwteoUkJY3WNm13ZD/q/GX2zj812k/3jb106S+c 9//es3rZ/k//vXbx6/yVXJ/ZK/yHexjlXjY5QW4mmxaEjRgEpkVd6IvNNyhCFtnFllrKwufLuvQexvSa oW8ojCiloYOk8fwMuNzlkQJj0tlVnOvgvMGv7QtpuH P5NpcsOYneqstRKlbCcvZDpmXdiI2k8OayR4o4Gvhp2qbDkiv3ugLkud8h7tkBfxikRItkXdT/2fZ2ja V6OUrrQoTE8agZ1adtU+yd/S2Uc5IbYIuacsHo5Zi7ESbHHZ/BQzBmiJ0ttSCuS0u4CUvy0psMYsk5qo VVpUaVGlRZUWVVpUaVGlRZUWVVpUaVGlrSptVWmrSl qJ2cqVWeH8zdQKyd8ofYUdx9zpXkjq9nhFjag5DcUfPa5PpeyY13CuQMi51e6wgnNO2u5mC/I3bCuprR Augxj4Qtpn1ln3AlYfRLywCoBfab8SZvuo2CdcfikNhe2cpXVfl3ljWooa1xxIXyy8MpBUDw1bzYuWgk qMRu6yvPsTtakDHy9ulQzBSiQ8smBFlo0qwXJzb3vg Hhrj4vzCuos9EyQhNq3ExowG88MwcwJ4vjylgE6r3KogJY2+7t7belGL9n73F/64Ez4J7vq5xmKeeFZs 79cVkyLrj8n42UtGb9IlR/6ojhzMiL0bF66p/Zuv/Jcv85WlyKe2p8pl+uC/kx7AD6+34gKMM78/yus/ vKs+E/WZqE+gPgE5C/mU2iv5Xz2e/c98OIQbng+3al fv4O/gH1X/WaTjwVX4Bw0iBdyzN/Ke9Gz0WmIMcoT7Qn12Rx2Klrg/+Jrc0VR71Ki+OO3dwp/1uwR17P P8A/gI8quA9fT03P/tnZ/k/Qk02hC6DP+CDmdpDXy7Usq/x5nxvxx5l1tm1xBNp/DmQzlnp72s+F97Z8 /0D9+V14D/nAlBiu1iOlp+uIaNJ3YJ2N44h/M856Jn Marcus/5MJxSx480/X7ae9N//Uqvdz197fBmM/23jTwA/zD4ie7c973Enewx0k/rUhyvJ8HL//Swp/2Zvq0 N3kC/Wy8BpnF/tfe+B95gljfqoYQvaFdeY1kY/fnqnvNoqy1HwG/uhprM6PZQq8Gs+Fr0BdY2a+M0v9E /85V/QTDm5fW61lzuWM/UUvjfW2h9YWaZy8q5ttktZ 2F49LZlv4b3LyeLuPriB/CnJ5d4xUP+B02CIia+sx6RSmep/6xIM123pwk/6WFX8D/2lwQORqX9T5p/O FZX+F/ft6e0Qmx9vLNQ4+F8xppmLcJPY2u669hVKejOHI34W34T/PKTi6RWUgjRi5K/UdcpRT7GGa9F2 38+9oFM0MQs4t1TUzB+N254mG55Fu4+vemwW/AW/Xj 0erDwb3kg+jKiym697CaRTpyL/wLeNgbez/8uYCZY+xff2rz2cZw05qyb6vGs9/qyAf2PanXO0RuzR/A O/gd+So3FF0ofPfqblEcGjGAfmObPcZE5Qgl5bVHxBOwAvnlT/lk1r34j8594V6FSssn7X8DN8jgaHEO L/ryw33EleYz3SrmB0A6jJE1wqW6h+LvaK/sK/VjR/ /JztO7UA4vceK/mZSK1jVOLBqzL1O04wgQlEX5vB4v2J/MFarLgd0IXa/MamiZVp6A4DeRRvgXBm38ld CQe7LrmUsZrnI9AnxoykZqLZGG6JfmT2aDn1oU/y5+w/drX+aO0C6dUK5E/xrae+rswcXIg3YfPIyxHo HT5Z5H77zrM2M3mPG/AY/2GuYr/s5w8rd5qgS+fANe 09DkvYe0d0080Ceki6/pkfvvh8W+8ln6d/Pbi63D4em413iXcd8p85MhEj3/4NG/E/07+3f3xZrapsxx rc96swFexfb+unh//5Dw65NL0Ng6W9Z+Ed66R3U/cxd/oH8D32+gvYH+DXy/gfYG+jcwngPtDYMcf//x chkF1reb8NknL8xZ3RjxY8U0qL/2RaN1uI9A3crxIv 9W91HsgGwiwnV/5yvF8jN+Xfh+y0953bwwrrckMZ7O8hr7J174zwwT9q91w9Wt0Eaygh0W/2vj/yv7Kt MD+LKf+zbg8T+EdSU2Bst14d3x/9+N/+8u/7uTfkQySkYjfqFdaSi8t5/32UL8ubJJ1etmrQ/d53K1I1 79ft7mX/u1hmgcUJr9H3rjh6uDzrQj0W7xU83zl60G 3Xry0bm4ytw+x1f/q1Tby1sk+Xx8Pt9t3Thi8G6jkW3WpDDzhuwSWpGxpP/j92eHaM8EpsIMqUNGVkAD A7/Kp8Jr3mH7tvhGTvmcOJd0g4352a31itWVigoTArZjq/HOpP9KS/8a0SI03yyFY7oxGlJ+J Luis+3yH7 [file] qTvxOEW0Ne5MouEeFFQgJEEZVo3Wp746BYJcURSAEwg+XdgopKOzfHvxNTRZDCS1XnhDXWHCG5H= ID Date Data Source [id number] 08/12/2021 11:35:20 PM EDT [facility] Name Value Range Interpretation Code Description Data Zofia rce(s) Supporting Document(s) APTT 44.9 s (22.0-34.3) [facility] ID Date Data Source [id number] 08/12/2021 04:42:39 PM EDT [facility] Name Value Range Interpretation Code Description Data Zofia rce(s) Supporting Document(s) APTT 90.9 s (22.0-34.3) [facility] ALERTED CRITICAL RESULT TOJOSHUA [id number] ON 08/12/21 [place] 1641 [place] [id number] ID Date Data Source [id number] 08/12/2021 03:37:04 PM EDT [facility] Name Value Range Interpretation Code Description Data Zofia rce(s) Supporting Document(s) TROPONIN I 9.34 ng/mL (<0.05) [facility] Less than 0.05: Myocardial injury unlike lyGreater than or equal to 0.05: Highly suggestive of myocardial injuryCorrelation with rise and/or fall ofserial troponins, clinical symptomsand ECG changes is necessary.ALERTED CRITICAL RESULT TOJOSHUA [id number] [id number] ON 08/12/21 AT 1535 [place] [id number] ID Date Data Source [id number] 08/12/2021 02:41:47 PM EDT [facility] Name Value Range Interpretation Code Description Data Zofia rce(s) Supporting Document(s) APTT 123.3 s (22.0-34.3) [facility] IF RESULTS ARE QUESTIONABLE/PLEASE RECOL LECT SAMPLEALERTED CRITICAL RESULT TOJOSHUA [id number] [id number] ON 08/12/21 AT 1439 [place] [id number] ID Date Data Source [id number] 08/12/2021 10:02:[address] [facility] INFORMATIONPatient MRN Name Date of Age Gend*PT [id number] [place] Jean-Claude 1970 51 years M IPPT Location Admission Date/Time Visit ID Attending [id number] 08/11/212142 --- Kemal Vasques MD([id number]) EPI ID CSN Admitting Provider [id number] Kemal Vasques MD([id number]) Attestation signed by Kemal Vasques MD at 08/12/2021 10:02 AMI saw and evaluated the patient and reviewed Ms. Pack's note. I agree withthe history, physical and medical decision making with the following additions,exceptions, and/or observationsGarrett is a pleasant 51-year-old gentleman with no significant prior cardiachistory who presented with sudden onset of chest pain to [facility]. EKG showed acute inferior STEMI. He was given TNKase with successfulreperfusion. He had some residual chest pain upon arrival but his EKG hadcomplete resolution of the ST elevation. This morning he is pain-free and willbe referred for cardiac catheterization per protocol.Signature: Kemal Vasques MDDate: August 12, 2021Time: 10:02 AM --Inpatient History & PhysicalDLewisGale Hospital MontgomeryN: [id number] and Plan:Principal Problem: STEMI (ST elevation myocardial infarction)Active Problems: Sleep apnea Hyperlipidemia Tobacco abuse Obesity (BMI 30.0-34.9) Alcohol dependence V tach1. STEMI: states he started having CP today after an argument. No prior cardiachistory. No family hx of cardiac dz. He was treated with TNKase, heparin,plavix, asa at [facility]. Continue heparin. Start nitro for ongoing CP. Add BBas BP tolerates is U tox is negative. Morphine PRN. NPO at [facility] for cath in am.2. V tach: will start BB as BP tolerates. Continue to monitor tele3. Tobacco and alcohol dependence: cessation discussed. GMAW ordered. Deniesillicit drug use. U tox ordered for completion sake.4. HLD: check lipids. States he has never bene prescribed anything in the past,but has had abnormal lipid panel in the past. Start atorvastatin 80 mg.5. HUMBERTO: Not compliant with CPAP at home. Hospital machine ordered.DVT px: heparinPatient is FULL CODE verified by discussion with patient.D/W Dr. Vasques. EKGs reviewed with Dr. Vasques. Please refer to attestationfor additions.History of Present Illness: Jean-Claude is a 51 year old male with PMH of anxiety,depression, chronic back pain, herniated lumbar disc, sleep apnea, alcoholdependence, tobacco abuse, obesity, HLD who presented to [facility] today with chest pain. He states that [place] the [place] and onreturn got into an argument with his at which time the midsternal chestpain started. He initially attributed it to stress as he had also gotten into anargument with his mother earlier in the day. He does admit to previous episodesof chest pain within the last few weeks, self limiting. The pain progressed andhe was feeling numbness in his left arm. On arrival to [facility], his EKGrevealed ST elevation in leads II, III, aVF. Initial troponin negative. was consulted and recommended TNKase, heparin, asa, plavix. TNKase wasdelayed for CTA chest to r/o dissection. He had pain reduction but notelimination with SL nitro. He was transferred to [facility] for a higher level of care.On arrival to [facility], he is c/o variable CP ranging from 2 to 5 out of 10. Headmits to non-compliance with prescribed mediations and CPAP. He denies beingdiagnosed or treated for DM, HTN, HLD, but does states that his cholesterol hasbeen high in the past. He reports drinking an average of 4 beers per day and hassmoked 10 cigars a day for 23 years. There is no known family hi story of cardiacdisease. Heparin gtt continued. His COVID swab was negative at [facility].Pre-procedural COVID test ordered. He will be kept NPO for cath in am.Past Medical History:Past Medical History:Diagnosis Date Anxiety Chronic back pain Depression prescribed prozac, chooses not to take it Headache Hyperlipidemia denies prescription meds Lumbar herniated disc Sleep apnea admits to non-compliance with CPAP Tobacco abusePast Surgical History:Past Surgical History:Procedure Laterality Date CARPAL TUNNEL RELEASE GANGLION CYST EXCISION HERNIA REPAIR REDUCTION MAMMAPLASTY as a teenager ROTATOR CUFF REPAIRMedications:No medications prior to admission.Allergies:Patient has no allergy information on record.Family H istory:Family HistoryProblem Relation Age of Onset Colon cancer Mother Hypertension Mother Diabetes Mother Cerebral aneurysm Mother Hypertension Father Diabetes Father Peripheral vascular disease Father Cerebral aneurysm Other Diabetes OtherSocial History:Social HistorySocioeconomic History Marital status: Spouse name: Not on file Number of children: Not on file Years of education: Not on file Highest education level: Not on fileOccupational History Not on fileTobacco Use Smoking status: Current Every Day Smoker Years: 23.00 Types: Cigars Smokeless tobacco: Never Used Tobacco comment: 10 cigars per daySubstance and Sexual Activity Alcohol use: Yes Comment: average of 4 beers a day Drug use: Not Currently Sexual activity: Not on fileOther Topics Concern Not on fileSocial History Narrative Not on fileSocial Determinants of HealthFinancial Resource Strain: Difficulty of Paying Living Expenses:Food Insecurity: Worried About Running Out of Food in the Last Year: Ran Out of Food in the Last Year:Transportation Needs: Lack of Transportation (Medical): Lack of Transportation (Non-Medical):Physical Activity: Days of Exercise per Week: Minutes of Exercise per Session:Stress: Feeling of Stress :Social Connections: Frequency of Communication with Friends and Family: Frequency of Social Gatherings with Friends and Family: Attends [employer] Services: Active Member of Clubs or Organizations: Attends Club or Organization Meetings: Marital Status:Intimate Partner Violence: Fear of Current or Ex-Partner: Emotionally Abused: Physically Abused: Sexually Abused:Review of SystemsConstitutional: Negative for activity change, appetite change, chills,diaphoresis, fatigue and fever.HENT: Negative for sore throat and trouble swallowing.Eyes: Negative for visual disturbance.Respiratory: Positive for chest tightness and shortness of breath. Negative forcough, choking, wheezing and stridor.Cardiovascular: Positive for chest pain. Negative for palpitations and legswelling.Gastrointestinal: Negative for abdominal pain, constipation, diarrhea, nauseaand vomiting.Genitourinary: Negative for difficulty urinating.Musculoskeletal: Positive for back pain (chronic - lumbar).Skin: Negative for rash and wound.Neurological: Positive for headaches (chronic). Negative for dizziness, syncope,weakness and light-headedness.Psychiatric/Behavioral: The patient is nervous/anxious (resulting from familydisputes).All other systems reviewed and are negative.All systems were reviewed and foundto be negative except for those mentioned in the HPI.Temp: [98.7 F] 98.7 FHeart Rate: [61] 61Resp: [18] 18BP: (123)/(81) 123/81Physical ExamVitals reviewed.Constitutional: Appearance: He is well-developed and well- nourished.HENT: Head: Normocephalic. Mouth/Throat: Mouth: Oropharynx is clear and moist.Eyes: Extraocular Movements: EOM normal. Conjunctiva/sclera: Right eye: Right conjunctiva is injected. Left eye: Left conjunctiva is injected. Pupils: Pupils are equal, round, and reactive to light.Neck: Vascular: No JVD.Cardiovascular: Comments: Irregular rate and rhythmPeripheral Edema: lower extremity edema (trace).Pulmonary: Effort: Pulmonary effort is normal. No respiratory distress. Breath sounds: Normal breath sounds. No stridor. No wheezing, rhonchi orrales.Chest: Chest wall: No tenderness.Abdominal: General: Bowel sounds are normal. There is no distension. Palpations: Abdomen is soft. Tenderness: There is no abdominal tenderness.Skin: General: Skin is warm and dry. Findings: No rash.Neurologic al: Mental Status: He is alert and oriented to person, place, and time. Cranial Nerves: No cranial nerve deficit. Coordination: Coordination normal.Psychiatric: Mood and Affect: Mood and affect normal. Thought Content: Thought content normal.Labs, Imaging and Other Diagnostic Tests:Today there are no labs to review.Diagnostic test reviewed for today's visitinclude: ECG and X-ray.Significant findings: As noted above. Labs pending.Signature: Marion Pack TAIL BOARD WORKER-BCDate: August 11, 2021Time: 11:11 PM Name Value Range Interpretation Code Description Data Zofia rce(s) Supporting Document(s) ID Date Data Source [id number] 08/12/2021 09:56:44 AM EDT [facility] Name Value Range Interpretation Code Description Data Zofia rce(s) Supporting Document(s) &PDF [facility] YJBLHo0gVoAPYbGa11/YOHdjWYSat1KcGMggSEh6XMjvPLLwE3BdeOlsIJaCT2fCHadNJ63dNQlSMW6E 0b3 FyZJShCyHOwQN9TM6yFTNaznPvwmH3xA7dYY1SPKQ+Ol2TTW7fp2NiWSn1ATAbg6WjDPcjUZv6I0OulN VktuHbDczxcHGDHCPvYKZnK3gltbu3gYQcUdm0Qc8BUqAsx6UbQKExAFzBcm0dU99dQoK+X2D/A4HFYl rflueQSIgRVEwVOhQIf3EtQMzbYkBX0lwTJA4uSV8+ 05rMNPc2DSd48tB7sML7ZrJ654zu8CYG//0hDgNPSimyf+tfg0iL/q34+9/RWadr01W1x0GR96/75RBH +eZZ5LzB2/AwZY0h4RxZ17z0WIydBdzsGUO+7gdtWDorfo4fNyNAfrtZS22GQ8hBZKSF6Miy2KcjY9Df 70U9JBUY8OQl4kuwHQ65zyDRaD5PK6LakYiEBFJQUf 0OZk0Q2QpV9EXO/XyGrtiXP1LGcyAPRDrdATNPfNcWgfCxMW+8bq5/mWr+ITrc4vXjbJoEsryUz25+7V 4dvTnrXoreydnJ+Mwo2h057/K0Z4+sp9A8nrvChyz7xKatNCSISgahxicECiVslxTVHTPWOY2CtO4oRc mYTiRFlqEWwOGaxPyrfS96DOh1GBWRU3A/Gurmeet+RWOZ [file] Ubl0Gr+TTSXkVANVis1/mjk4FTPIMHJPEjXRx10f9Z NMhoDfV9kNWEsBvcaJ0RmAIu8KgWHsOCoX7D1AT7VnsChFcXl2MQFFhH73I8rj9jcxxX8tFoX+Oe1UHI iQhAJQOQDSwSuQL0f9aQnHmWqREoTxaZ7Cro6WtiA4Xr8O81tqAJnBOed/74Zrp5Xe6VxLllSwASZX1U RsMkNOH+elementary school principal/vv+GaoEVQ5aLa9tc0zhflfks7NVW0 [file] k7NAl4TF3XFHLKZ2CGPb== ID Date Data Source [id number] 08/12/2021 08:43:07 AM EDT [facility] Name Value Range Interpretation Code Description Data Zofia rce(s) Supporting Document(s) EKG [facility] SHXIBg2bGiJEIuZze4RuAiXdRIQtHG6btqs5L9K5pMGhE3BicKNoj4yuS7IpO1QzSHYjZDHGIO2FvIMz jb2 [file] rn integrated+89OmhsGZWto2GaKx0+z1QzoTX4UoTShEweyojCe [file] 7zhGZ4DMEtXvtASa3Co4CfshE0dqNzKtn7RZN3XtWdMG4C ID Date Data Source [id number] 08/12/2021 08:06:19 AM EDT [facility] Name Value Range Interpretation Code Description Data Zofia rce(s) Supporting Document(s) EKG [facility] TWIHMc9mFnYCEpDns0CgWxMyXNGbOQ7vhse3O9X7iSYvC0EqaTWob2gkA2KfI8ToGXKbEVXDQQ1FdMLd jb2 [file] DbmViJuQ56evVIN/Aob9s7b4qAqxaF7vgu3PIiqYQ5kg+KLsuVgX3yt9rf0pS5+Jose Luis+FnK6eyb1GMOs+ [file] I5pD+QSqzmPg1vnDw/registration scheduling specialist/81//69z/7QmjC6m/59//5 53/87/Y///n3//3nP/79r03/+8/1f/7rX/uJy9+e8WJv0JTFLK87Hk/+/nA3mM9WWvU9m7vdiu61HMZ2 sZEac0Q1uq9lbU+8I7gwjP/6bBH+0WfQB+vgJ60RiA6Lepj+6RHe/U6m6Oiak/51Yvr2N3x122vEJ8rM 8K+/mrEmn66Oc/7+lr8d/mKMAtbTIt38T6kXv4SH+q +/c6YwpxOvK62X//XXR+N25zz45B8sLNe7987QdkL/dAzPf1ClxV/0tcM/TTbNG3zTjcRS9V0/Z1gb+W VFl5IJvGssf5kNig9U27rb20/3eZY0Y02kzNSkQTxLK976CO/oGml+/a2kSE1952G1R4++6v/Ahfi50p Du/qbr2K/Sp0j3kwqc7Xz2xheCbJc6gSn8PzmcVc8S sVR14AakMflHVox6vHg6UnyzacCtmG/fDO/vG2NM9/aDCIq6ZOvRhX/noO/x/TC22eLDbRZVyr+2568H YuNsbRl0CIbTqv/qlhszsZRh6pT5/E3PoXv+UpdX56Rexmfwvfzcc/5+1f97k77fr1Ol1QQwFrq91uE6 8oguL3aZJhfRDmAj/a6q5muKVumFvn5m49b5D0Z+6+ +qt1Sai0zJSW+EQV+gr6L/JdEg33mq5KN08+dbW8JkYndkObMB4T/FQ8EJYSW46lbuP+kddK/l9CU42j s6vq+vav/4AfOYs8QmpnPij7O/O9JNAuISjk/Iox68aH5KQ2KOy8tbQCz74A+cKGeBju+20A5Pbw/C9/ 2Bs5t+6icCgACe5d3btgOI7Wj4usU549y6847X89cF 7moclJgs2KnkJ+r0STlqar4aMQM8kij+OmN12MN53Dv/R7fy0ekecn5N4HFJ4Wrd9zTfrh/j5/cbH8Jo pyO9I/8ZuyC7241z/TDk0De+yvTtq/M10Hmpt2QXuI9Lluc9D86iQZ37m83PiCfH4M5sTJa4QAMgU23Q /sg0LJeU8c+iY8Hmvr3Bqad494L4Rmjyf6l6u+Orkx j22hdlzBDqn93qFX/vK/i+G1+mtf1a7viL8VpcKd1guTOlKVK2l03x39e4A+Pvr1WA5DQhaTtJf87pz4 tEtj2paAXxi6/Rl47+dvS3O+mGz56Epo/b0d+O/ir6q+mervyI2qGQL6TP68Hy62rM5LPgTSBt1YZr/9 3GYK0T46g2P8Eg6Yi5zy9Stwggjubj6fjp2/sdxynT vip/46vMG/uPoe11CMEXaZZEqll99+rTKYrZ4cpNlAv6+Ub+j+zXG/oLjc3wYHzurwik+t3fLLP+jyTw IvBq6x2/Mwg7Iu2n+J9YsbtzJlDakQ/+zcdrIsuh0MEih8+oOCg3LeyTKRyZIa0c/OHu/yzP4Izps/Dk muJwXP3Qd9pe/EjGv4Cr/g5fb6SqxGh7UWDn0ISCy8 BXluEfPbSTG1+WCp6T5udk2FyoRqHz6d/iOSzMP96lpoI5w3pYS0Jt+BecnbRjU6we7/13XaIG6g/+Rn wom6wi2zFHK7Dh0OL30Ep9n4X+Uh6A3kZ3rp8OIWWcKR0vheKE2R9/zX5/kf+M+/iVImo5zE/9XbEG/v TXyBNVsotyO0Jx3L7wHx4dk43p1B8h1N/YdvofvjKJ Uwvf5jPq1i8l7Hfd6Iodducx3k/qKg12eJSwN41HHy4Dl7Dev20w9ah0ys5zrzNs4BpS9+uvZpn7+8a8 VafSen6IWrNjTsPlxtKt8nM/31auKJxJZWRY1GkP+F80W3tjbbp/9wHRj5el+wNhG9bgsw16Ht5p5jt+ 0jenL91w2vcLMbi2Q3Eh4AB1Ck6Mp0k04x0+F3qr9b t8Xg746Y6cDDJ+0J9gAF0p2M2Bv8vwmYf5cvc/7aG/OuGSc+hvLlguQ1MG3Cohsg/bbycqDHoDffdXI1 z78R05jxTir2iGBfNc3r3lXscjfE7WAsPC+oH0A+ji9X1o039q0lSKX835h3yAUKQl0VfKwEkbZzJJ6m 6E7exZ+54K0zy8G5bg0mKi/XfPtf0+Thruqv4f2Qp6 SxWa44957nv7Uqu28tb3HiEZk2bb5LcZM/3TRzXZ3B4r/wNxXXt8hy1z7vF1glNqxPoyKsgxJ5hrLTsA +u6vR/pr392t2oyT7TsczvHwRD04ugd0me+Iqmjg1G4JEh/4pC0F4Do+H3BW9X5+bb9/AQ5oin2j1L39 ra/LsIAe+ro9Nja+umE7er/01sGPY7gFx23sAuc6gg 0Lts2HF2cIAls6DzayMOTy/G0W34np6Gc3M1p4OtbgyWRZ9lr+ciGfT24w3vMcRD/+wxwLiblkP1jws4 sXk15iLq5dorY1TvTUga6Pqjz+wiDENcGX4gn8QpEm+6YT2wO9f7ufkWy+lassiter++7LNrEydfvnFwSd7Uxy h+0/D7ReS9nxW+0XDGufca/rhw3pRyQkMjOe0Cq/x1 qV2aCF12Pbn+yrnvhZ+7Y70K/fNSNy08Ffeh667ga81Q6ji6Gg+7ny/biOy1EctAfFnFhb/X4z4q9P93 q/guob+U5oS9cgS9YvURtbtabBoPIXq/teFdomi5Qmo/alXOEqSXan/vi0Qcqjo2EAhwHbn7wsKE2RaK f2E/Wo56J+mT9QFrAKOmSKc967kgbnq97Ulb9N/9BP YL5W7wO1QZg/zPfVcXkaKiocT0irSBcfdjSNQs96qg5RtMYkteg1zqhvjN06Uy+ElXTvjT4j3+0cBXGV pLDggZ7YvRV6MndPtVKXn0cf5td+5u6OceC02Q/E75VpLJrYWNXN/VnsBXGUZ/Rv1Q4LjjMKQYwMj5YV V2WeH93CMpOEUNdwB9EloAEOxXnn92rn9wgTLLyxFL /gqq6zA4QkUk9W/Xkn/Vs5R9e3VYO7m64lZiapWRfbJ/N83qFs2vrnvjcB67iz/7LUGFQUd/I4331aLH +nzFtjX5nye44lbH2/dfyp1mJHe+WvdslZ2liw/KNPi+BcQW21H2X1Kw0Z9E+Yb+Gvpr6G/wxbZ0yCgB /QZ5T4U4UsVY30Cy47Knadyl7SFwMmI40QhBPr2Ec2 J7ueBr65U2DnaqZA0A+jswnge+70B/B/v7TQ7OtwKxE/orHfi+Q933WPhLRc6eg7Q9U3cbje232P/H93 V729Oif/90kcZUqsDD5a92Z2cnA+zAM2xbNp7CLs992g39slb57JK/qhfeUK/0Uj23FwHdFZXcNqk9Dj GJ/Gi9Kze9S+ArDXy1/w33tf/EfvvWf+LGfek/z9b3 nf/EmfvK/v3wNXgcMkejMfkaBGUnSiR7jfOIM1Ht/9Hr9AKb74B9+5fgpF/1P7h/AxKvboif+Hb/BuQ/ rK76/9XAVxvza+WaSIMAayB8mkfdXlLZ25K3VkMdxNuj+Cq+92X8KZfU5eZzRFv5Stabm/7Kvjr/tTgf DLe8m1Djx61/7avzUMvzwaDX+YLhfNC+Ol+si61NWS rA0iX1bM42Aaqhw+6gT5Q/WZ4Ao3v1fE63raB40Mb94DT+wXZyugc0N84v2CP+atlxjkdg3mC7GK/71n 7+Z+1L+/mPtu/s57/kvrL/21CmWl7Qx4cy+glgI4t73YKhMIpoRcnp4fSI5fz2HbCzT34vK1C7+FeOrx 3e+tm7FrFE/leAXxy7qsolWxQUc+P+6B1INuHbyPd/ FX2M+9u27jT4/mfxR6V3wjk/ADO1rVhc/YK6htGKF0vZ/6AFvloZvvPIoL+uBcgzIneg4isQnj0XXp/7 CjVXR3plElnFW6/6zAHcxBbrqa58SP+fM7Vovh+gn20rjVf15aJ+j0zr/Mb37orNGm5aPQ1LN1JoinYE oyMv79AdhR4Evd1UGUUC8dU2qjKgJ/IGX2SUzItCvL eZfaDj+wa+cwEbzynFg0xtxr+X77VM71Eu7nnJ4A58n3l8PYkcwEaaI06jjse01xK42Jn0/seI1cnv+O qGiz6+Qz3gU2mwtyL+tC/Z24Jpjp2/+8N46bs1Sx4N14Y8013u/oYN9Do/5afuHny8u+3sK3RyLn3A+n Y93H8HUbIn+lt44kV4OjwO56NG6oo3kyqdU+hT37Vv 0KdedF+gP+utx/3GCVn3Y8znv8gHhT+nM33kcgv/3Fqs89B+6PSh9cvxV8x41j/ua/Xwu8o33xJwdx/N n7yz7k/uK/VhE9015pXXgL/M3/Pte2dbpn8f2d10rtFI0OwbQtz+TIZ87htxiGAQXvJ84Ss0fuoSogMo 99Wom6h6qviq/dbHxtjb+Mfy0bpmjm8b6nBUI8D7zx T87zJAys8Cx47cixofn05pf7tg1s7ROogypGcGwow+vPFVymShvxtfnfD+rwwJ9A2aa2+JC21yjlhsQ3 JmeA9jvR/C57ja9+Dzjuu+Bp/abdoul+HY80argQh64/utc57w9+Bz/a2y4KXCHWkr/v6+w373a/70ynhA0 iBF0OlsE/Ku0Ovly9Ap+66h3i8vQpgu1iG20ioNTb8 J4o3zlCIPNzP2DgZA3Dm9blWV+pJ3Ouu4cE72nsN/wi3A0CiOy1Po9nGU0Y1oc8Nk/6zDA0ACUccAcjD dK32S+1HI+63RzsF/RX0N+63Z3pH+QOmaWgZQz5AXyfIM4pEu0ktdr4s27pm+/ren8nTfuVnUPzRxvMG 6fw5tjA+ruGqr3bNCp1iWob1wzXuJ6Dz6LuxZLVptC EAlyy8U/ze5aSwWXj25zH0EjHP+hHNutlRJ0FL1htJ2LWTwI9Jv32jUJ3/zuIB8QGtH7RF0s0hs9Z/Vu e/snvYLjg6IRxPFnj+gr9tH85yEvt5qaYQz4bNE+40pSdilxwEhu63KDy9S7YCImdB/Q8J6J1Z8P88f2 FEWcqEgl4fDu83chEo0QVZ/raz7T6YIk39E4s/PMZA bsmDYU4Ibh+YoE+0c6E9+R4f88yP64ahQQpvSqn4yo/j+8jWjMR2garO+Vb98vo/Gl765+Uubw1feIv3 opWs9us+Uf7/p+dlsIIlma1da3K1FtDZImDEVp0TK917wVPWsps3bM41XZd1CwCNCVL8H8HR5LhQ6k56 cy27h4A/u/DJtTvy1//r5sJ8K1UR8838oCd/cG1DOu cbXblz416V4mH/79ob+eLuqbkvyp2jsL0HiDByLVfHJ03kko9M/2oF+hsT+Lakc6tk8d5wNAWP+YuuwP QO4a1JwQ0AfH7F+6Er6v/Xv1qv/Kv/Qf/q++tf/Q/6V/u/rv3BzF//+/7VeuVfrVf+9zxz0G454B+69g rNPFe9rK/+j6458qcfPsmbf018/q6o3sCphh1/I5d9 da/z4x6r8X44mX11H3rs9i15M87Ow0Y/720gfSL/YN2X9CHm0A6H2gRHdiR/o/537Xnw7uGTm7i8nEy8 kM18xtKlb/NNa35er1gmE8yPC82qf++Rdzxf+F95r++vw//Qb38Fpq2E89L/6O79P8u4ERll0r/2Xv51 1fOqjt7PNW0rpPkPi3tfKm+o/RNVuqB6fp4Bk8HjFF 0VxutYFsYF2wm4zjt/duyRkvQ30S9Tc4oyAt4nt9Dfq4NkG/+rruvzfM//hay41DsKhl1sAYX6/4Oa5z /7yj7V/7OvEi/3w10rAqfHu9p0v91rg1aUmo/sqwMQnuvnv+ac5OP59/M/eMV9035//p5i7fusG9ILzM 5qEWshj9Ptbh+VnpfOD+zlSpxvqWQ2Hery+Vrt/7rV /oNo8IAP44Tp9r61w7lz1c/h6d+ua/+fSIyzBQ6cm4ov/o9c+ZBS1yaA+Vj5vt7WNv9v7L/kq+xnl32l nT7xw8a+Yv93evm5V/gy1G+476rvguyrvHbkd+VGp6ZqgZiK/S/2MliGFd59+j8hB6vXHd/XO/LX/pH7 QPpAev3/uuyrzFP/gw7/K5f/4j7s31un+R3phU+663 z26eGEk+tK39+Oy3nNz0+8v8e+bwePMrb16IbN/kZ3hcnuslPHW18zztTktR5JTlcJdW+ob5D2B/Vt0v 4geOU6HZ1jm49trf3Tb775nH+o+rU/pJq21ageN2q1vZ/1sa/o8kqhyP6IB9hTHjgLb7n3qFvmRzb9Vh QKOI0aQ7Y8+Yv6sa+Rx7ikt0i30vwiP3ttn/jV/up8 9xZ+tjnsoY9nmD90hcx19KN93p4+fr429p2Ldw+d38e+Mi70b441rm6voeuDF1Ty2nRzardyC29cQc7M m5zrPgPo+3dD6N2UA5X13Lyjb/qpf0Qw9wQ4Jcp20cyczc+irckuY9kz7fl40Ci/sY99pe/C1y6nuT6p nhK996y54G+o5/Q3r09/IRgp2l533x6w3Ax99N2lci 7yZ45754+pa+WgrI6d1Fn/3l3+sUrH8+74kl57U3mSa+tKC56vdnTW89dx5+/u5f+8e/k/94Mr4E3N05 nd4s53hf0tOlb+3sKv1F/lEgpgDz2fc8W1tPf6i+0Y64DbqO5oBuys8bHp6/7Rhn/8Qp51l0D+3/q54d ++R31/t/zbz/hyu6Ns2/vVZrvpdsY66xTvu7/f8S3/ dtU/Z9Nw2VuBzDq806b39y+f55vgg5prYpbhw0C+skMiL5lKk6K1HvpaP/qr+Qhb1sxOB2/xDn4H9khX B/KP6pfh+Kp5U44kyBorflypY2lmW82d03evvv42+lX/V6gibYj6sbc+ytb+pOAx8Ob6uOK4ofL1vgtt cLRu5M07Cz/fq/Z/9zKkL+VG28M3bDmv/2B08oY4Nm 68V+HtW/uDqtPxfL3+9zfsq+31v7+7K66aky3Au4u9uHYbXI9798j/e8P/avtC/Y50R/0c1Tg8Z+ovvH 2Es5yEAP17ek/tR8m19Zu1W79R9mDrab+Hmytot1ugsS/93fW/sHfhGxv+7Rt90puhw7LFoc/3rv/BLf zA12kgXhhnPD78o/4DdcU7xgP+bch1BuSLn0X8UZxC 1wRpjtLjPIfDVfr6x56UdadC4RX+zxv+7fEVHhtf+T/HV+qHDmoJ0DX2PowumcRaGDwNalZF2S8Zi8om +Jacquelyn/AhbX9uPEK+jPfvNn/z00yS4EF7zIh1zF5Dmys2J+BiAab7cAxloEkND1komD8Hj2lrd05iVsZvj [file] p4AxUDOpQDBXMl6+YkE7LZD8mLGxPsg3AMS4VjnqDNBEXf== ID Date Data Source [id number] 08/12/2021 07:29:21 AM EDT [address] [address]B[place] Name: JEAN-CLAUDE HARRISDOB: 1970Sex: MOrdering Provider: MARION PACKAuthorialcon Prov: MARION PACKReferrkeron Provider: Procedure Performed: / XR CHEST PORTABLEExam Date: 08/11/2021 22:52MRN: [id number] Number: [id number] Class: InpatientAccount #: [id number] for Exam: chest pain, SOB, hypoxiaTechnique: AP portable view obtained.Comparison: NoneFindings:Lungs: Lungs are clear without evidence of acute alveolar or acute interstitial disease.Pleura: There is no evidence of pleural effusion or pneumothorax.Mediastinum: Heart size is normal. No adenopathy is revealed.IMPRESSION: No acute abnormalityReport electronically signed by: DIANA JO On 08/12/2021 7:29 AMWorkstation ID: [id number] Name Value Range Interpretation Code Description Data Zofia rce(s) Supporting Document(s) ID Date Data Source [id number] 08/12/2021 06:26:29 AM EDT [facility] Name Value Range Interpretation Code Description Data Zofia rce(s) Supporting Document(s) TROPONIN I 20.00 ng/mL (<0.05) H [facility] [place] Less than 0.05: Myocardial injury unlike lyGreater than or equal to 0.05: Highly suggestive of myocardial injuryCorrelation with rise and/or fall ofserial troponins, clinical symptomsand ECG changes is necessary.ALERTED CRITICAL RESULT MANNY ([id number]) [place] 08.12.[place] [id number] AT [address] [place] [id number] ID Date Data Source [id number] 08/12/2021 06:26:29 AM EDT [facility] Name Value Range Interpretation Code Description Data Zofia rce(s) Supporting Document(s) SODIUM 142 mmol/L (136-145) [facility] POTASSIUM 3.3 mmol/L (3.6-5.2) L [facility] CHLORIDE 109 mmol/L (100-108) [facility] CO2 25 mmol/L (22-31) [facility] ANION GAP 8 mmol/L (7-16) [facility] UREA NITROGEN 13 mg/dL (7-24) [facility] CREATININE 1.00 mg/dL (0.80-1.30) [facility] BUN/CREAT RATIO 13.0 RATIO (10.0-20.0) [facility] GLUCOSE 124 mg/dL (70-99) [facility] CALCIUM 8.8 mg/dL (8.4-10.2) [facility] GFR >60 ml/min/1.73m2 (>59) [facility] GFR ( AMER) >60 ml/min/1.73m2 (>59) [facility] GFR INTERPRETATION [facility] --NORMAL KIDNEY FUNCTION OR MILD DISEASE - GFR >OR= 60CHRONIC KIDNEY DISEASE - GFR 15 - 59RENAL FAILURE - GFR <15 Est. GFR calculation based on the MDRDstudy equation, which assumes a steadystate for creatinine. Est. GFR should notbe used for medication dosing. ID Date Data Source [id number] 08/12/2021 06:09:47 AM EDT [facility] Name Value Range Interpretation Code Description [facility] Supporting Document(s) APTT 31.1 s (22.0-34.3) [facility] ID Date Data Source [id number] 08/12/2021 06:00:35 AM EDT [facility] Name Value Range Interpretation Code Description Data Zofia rce(s) Supporting Document(s) WBC 5.4 10*3/uL (4.1-11.0) [facility] [place] RBC 4.53 10*6/uL (4.60-6.10) L [facility] HGB 13.2 g/dL (13.5-18.0) L [facility] [place] HCT 38.1 % (41.0-53.0) L [facility] MCV 84.1 fL (80.0-95.0) [facility] MCH 29.0 pg (27.0-32.0) [facility] MCHC 34.5 g/dL (32.0-36.0) [facility] RDW 14.2 % (10.5-14.5) [facility] PLT 183 10*3/uL (150-450) [facility] [place] [facility] MPV 8.2 fL (7.1-10.7) [facility] ID Date Data Source [id number] 08/12/2021 03:57:13 AM EDT [facility] Name Value Range Interpretation Code Description Data Zofia rce(s) Supporting Document(s) TROPONIN I 21.10 ng/mL (<0.05) H [facility] Less than 0.05: Myocardial injury unlike lyGreater than or equal to 0.05: Highly suggestive of myocardial injuryCorrelation with rise and/or fall ofserial troponins, clinical symptomsand ECG changes is necessary.ALERTED CRITICAL RESULT [place] [id number] [place] [id number] ON 08/12/21 AT 3:55 [place] [id number] ID Date Data Source [id number] 08/12/2021 12:46:00 AM EDT [facility] Name Value Range Interpretation Code Description Data Zofia rce(s) Supporting Document(s) SARS coronavirus 2 RNA [Presence] in Res piratory specimen by JESÚS with probe detection NOT DETECTED [facility] This lab was reported by [facility]. ID Date Data Source [id number] 08/12/2021 01:51:08 AM EDT [facility] Name Value Range Interpretation Code Description Data Zofia rce(s) Supporting Document(s) AMPHETAMINES,URINE (NEG) [facility] BARBITURATES,URINE (NEG) [facility] BENZODIAZEPINE,URINE (NEG) [facility] CANNABINOIDS,URINE (NEG) [facility] COCAINE,URINE (NEG) [facility] OPIATES,URINE (NEG) [facility] NOTE: Oxycodone is not sufficientlydetec seth by this screening assay. A moresensitive assay is available upon request. PHENCYCLIDINE,URINE (NEG) [facility] PLEASE NOTE: [facility] STROUD ARE REPORTED POSITIVE WHEN THE RESULT SEXCEED THE THRESHOLD (CUTOFF) INDICATED. ALIST OF POTENTIAL INTERFERENCES FOR EACHMETHOD CAN BE MADE AVAILABLE UPON REQUEST.CONFIRMATION OF A POSITIVE SCREEN CAN BE PERFORMED BY A REFERENCE LABORATORY IFREQUEST IS MADE WITHIN 48 HRS.* * * * * * * * * * * * * * *THIS ASSAY IS NOT INTENDED TO BE USED FORMONITORING MEDICATION COMPLIANCE. ID Date Data Source [id number] 08/12/2021 01:41:46 AM EDT [facility] Name Value Range Interpretation Code Description Data Zofia rce(s) Supporting Document(s) SPECIMEN DESCRIPTION [facility] INFLUENZA A (NEG) [facility] IZABELA Gill INFLUENZA B (NEG) [facility] I[facility]ABELA [facility] RSV (NEG) [facility] COMMENT [facility] THE [place] FDA HAS MADE THIS TEST AVAILABL EUNDER AN EMERGENCY USE AUTHORIZATION(EUA) FOR THE DETECTION AND/OR DIAGNOSISOF THE VIRUS THAT CAUSES COVID-19.PERFORMED AT [address] [place] [id number] COVID19 RESULT (NDET) [facility] THIS ASSAY AMPLIFIES AND DETECTSTHE TARG ET RNA USING REAL-TIME PCR.TESTING PERFORMED ON [employer] GENEXPERTNEGATIVE 2019_NCOV RT-PCR RESULTS DONOT PRECLUDE 2019_NCOV INFECTION ANDSHOULD NOT BE USED THE SOLE BASISFOR PATIENT MANAGEMENT DECISIONS. FIRST TEST [facility] SYMPTOMATIC [facility] IZABELA Gill DATE OF SYMPT ONSET [facility] HOSPITALIZED [facility] STROUD ICU [facility] CONGREGATE CARE SET [facility] lisa DAVID ID Date Data Source [id number] 08/12/2021 01:27:00 AM EDT [facility] l[facility] DAVID Name Value Range Interpretation Code Description Data Zofia rce(s) Supporting Document(s) URN CULTURE HOLD [facility] FOR ADD ON CULTURE ID Date Data Source [id number] 08/13/2021 09:26:07 AM EDT [facility] l[facility] DAVID Name Value Range Interpretation Code Description Data Zofia rce(s) Supporting Document(s) CHOLESTEROL @ 257 mg/dL (0-200) H [facility] IZABELAY TRIGLYCERIDE @ 127 mg/dL (30-200) [facility] HDL CHOLESTEROL @ 52 mg/dL (>40) [facility] PER NCEP ATP III GUIDELINES:RESULTS LOWE R THAN 40 MG/DL ARE SUGGESTIVEOF INCREASED RISK FOR CORONARY ARTERYDISEASE. RESULTS > OR = TO 60 MG/DL ARECONSIDERED A NEGATIVE RISK FACTOR. CHOL/HDL RATIO 4.9 RATIO [facility] INTERPRETATION OF CHOL-HDL RATIO CHD RISK FEMALE MALEVERY HIGH >8.3 >14.3HIGH 5.6- 8.3 6.7- 14.3AVERAGE 3.7- 5.6 4.0- 6.7BELOW AVERAGE 2.5- 3.7 2.7- 4.0PROTECTED <2.5 <2.7 LDL CHOL (CALC) 180 mg/dL (<130) H [facility] PER NCEP ATP III GUIDELINES: OPTIMAL < 100 NEAR OPTIMAL 100 - 129BORDERLINE HIGH 130 - 159 HIGH 160 - 189 VERY HIGH > 189 ID Date Data Source [id number] 08/12/2021 12:35:36 AM EDT [facility] Name Value Range Interpretation Code Description Data Zofia rce(s) Supporting Document(s) PT 10.6 s (9.2-11.9) [facility] INR 1.01 [facility] SUGGESTED THERAPEUTIC RANGES USING INR F ORSTABILIZED ANTICOAGULATED PATIENTS:STANDARD DOSE THERAPY INR 2.0-3.0 DVT, PE, PREVENT DVT OR EMBOLISMHIGH DOSE THERAPY INR 2.5-3.5 PREVENT EMBOLISM FROM MECHANICAL HEART VALVE ID Date Data Source [id number] 08/12/2021 12:25:01 AM EDT [facility] Name Value Range Interpretation Code Description Data Zofia rce(s) Supporting Document(s) TSH,ULTRASENSITIVE @ 1.642 mIU/L (0.360-4.170) [facility] PERFORMED AT [address] [place] [address] [place] [address] ID Date Data Source [id number] 08/12/2021 12:25:01 AM EDT [facility] Name Value Range Interpretation Code Description Data Zofia rce(s) Supporting Document(s) NT PRO BNP 20 pg/mL (0-125) [facility] ID Date Data Source [id number] 08/12/2021 12:25:01 AM EDT [facility] Name Value Range Interpretation Code Description Data Zofia rce(s) Supporting Document(s) TROPONIN I 21.70 ng/mL (<0.05) H [facility] [place] Less than 0.05: Myocardial injury unlike lyGreater than or equal to 0.05: Highly suggestive of myocardial injuryCorrelation with rise and/or fall ofserial troponins, clinical symptomsand ECG changes is necessary.ALERTED CRITICAL [place] [id number] [place] [id number] ON 08/12/21 AT 00:25 [place] [id number] ID Date Data Source [id number] 08/12/2021 12:25:01 AM EDT [facility] Name Value Range Interpretation Code Description Data Zofia rce(s) Supporting Document(s) SODIUM 142 mmol/L (136-145) [facility] POTASSIUM 3.8 mmol/L (3.6-5.2) [facility] CHLORIDE 107 mmol/L (100-108) [facility] CO2 24 mmol/L (22-31) [facility] ANION GAP 11 mmol/L (7-16) [facility] UREA NITROGEN 12 mg/dL (7-24) [facility] CREATININE 0.92 mg/dL (0.80-1.30) [facility] BUN/CREAT RATIO 13.0 RATIO (10.0-20.0) [facility] GLUCOSE 98 mg/dL (70-99) [facility] CALCIUM 9.2 mg/dL (8.4-10.2) [facility] TOTAL PROTEIN 7.6 g/dL (6.4-8.2) [facility] ALBUMIN 4.1 g/dL (3.5-4.6) [facility] GLOBULIN 3.5 g/dL (2.7-4.3) [facility] ALB/GLOB RATIO 1.2 RATIO [facility] ALKALINE PHOSPHATASE 63 U/L (45-117) [facility] BILIRUBIN,TOTAL 0.4 mg/dL (0.0-1.0) [facility] PLEASE NOTE:Total bilirubin results may be falselyelevated in patients taking Eltrombopag. AST (SGOT) 52 U/L (11-39) H [facility] ALT (SGPT) 45 U/L (12-78) [facility] GFR >60 ml/min/1.73m2 (>59) [facility] GFR ( AMER) >60 ml/min/1.73m2 (>59) [facility] GFR INTERPRETATION [facility] --NORMAL KIDNEY FUNCTION OR MILD DISEASE - GFR >OR= 60CHRONIC KIDNEY DISEASE - GFR 15 - 59RENAL FAILURE - GFR <15 Est. GFR calculation based on the MDRDstudy equation, which assumes a steadystate for creatinine. Est. GFR should notbe used for medication dosing. ID Date Data Source [id number] 08/12/2021 12:23:56 AM EDT [facility] Name Value Range Interpretation Code Description Data Zofia rce(s) Supporting Document(s) ETHANOL <3 mg/dL (0-3) [facility] ID Date Data Source [id number] 08/12/2021 12:18:55 AM EDT [facility] Name Value Range Interpretation Code Description Data Zofia rce(s) Supporting Document(s) MAGNESIUM 2.2 mg/dL (1.7-2.4) [facility] ID Date Data Source [id number] 08/12/2021 12:16:22 AM EDT [facility] Name Value Range Interpretation Code Description Data Zofia rce(s) Supporting Document(s) HEMOGLOBIN A1C @ 5.6 % (4.0-6.0) [facility] Performed using [employer]assa y.Care must be taken when interpreting TdR9zifitneb in patients with a hemoglobin variantor decreased erythrocyte lifespan. Values 5.7 - 6.4% suggest prediabetes.Values >=6.5% are diagnostic for diabetes.REFERENCE: DIABETES CARE 2018: 41(S13-S27).PERFORMED AT [address] [place] [address] EST AVERAGE GLUCOSE 114 mg/dL [facility] ID Date Data Source [id number] 08/11/2021 11:45:06 PM EDT [facility] Name Value Range Interpretation Code Description Data Zofia rce(s) Supporting Document(s) APTT 31.5 s (22.0-34.3) [facility] ID Date Data Source [id number] 08/11/2021 11:34:34 PM EDT [facility] Name Value Range Interpretation Code Description Data Zofia rce(s) Supporting Document(s) WBC 6.7 10*3/uL (4.1-11.0) [facility] [place] RBC 5.09 10*6/uL (4.60-6.10) [facility] HGB 14.6 g/dL (13.5-18.0) [facility] HCT 42.6 % (41.0-53.0) [facility] MCV 83.7 fL (80.0-95.0) [facility] MCH 28.8 pg (27.0-32.0) [facility] MCHC 34.4 g/dL (32.0-36.0) [facility] RDW 14.0 % (10.5-14.5) [facility] PLT 209 10*3/uL (150-450) [facility] MPV 8.1 fL (7.1-10.7) [facility] NEUT % 59.6 % (35.0-75.0) [facility] LYMPH % 31.0 % (16.0-52.0) [facility] MONO % 7.5 % (0.0-8.0) [facility] EOS % 1.3 % (0.0-5.0) [facility] BASO % 0.6 % (0.0-4.0) [facility] NEUT # 4.0 10*3/uL (1.8-7.7) [facility] LYMPH # 2.1 10*3/uL (1.2-4.8) [facility] MONO # 0.5 10*3/uL (0.0-0.8) [facility] Eosinophils [#/volume] in Blood by Automated count 0.1 10*3/uL (0.0-0 .5) [facility] BASO # 0.0 10*3/uL (0.0-0.2) [facility] ID Date Data Source [id number] 08/11/2021 06:10:00 PM EDT [facility] Name Value Range Interpretation Code Description Data Zofia rce(s) Supporting Document(s) SARS coronavirus 2 RNA [Presence] in Res piratory specimen by JESÚS with probe detection NEGATIVE [facility] This lab was ordered by [facility] a nd reported by [facility]. ID Date Data Source [id number] 03/07/2021 12:00:00 AM EDT [facility] Name Value Range Interpretation Code Description Data Zofia rce(s) Supporting Document(s) SARS-CoV2 Rapid Antigen Negative [facility] This lab was reported by Tana Conte. Procedure Social History Code Duration Value Status Description Data Source(s ) Alcohol intake 08/13/2021 12:00:00 AM EDT Current drinker of al cohol (finding) completed Current drinker of alcohol (finding) [facility] Tobacco use and exposure 08/11/2021 12:00:00 AM EDT Never used co mpleted Never used [facility] Smoking 08/11/2021 12:00:00 AM EDT Current every day smoker co mpleted Current every day smoker [facility] Vital Signs ID Date Data Source UNK Name Value Range Interpretation Code Description Data Source(s) Heart rate 65 /min 65 /min [facility] Systolic blood pressure 137 mm[Hg] 137 mm[Hg] [facility] Diastolic blood pressure 82 mm[Hg] 82 mm[Hg] [facility] Body temperature 36.89 Kimberly 36.89 Kimberly [facility] Respiratory rate 18 /min 18 /min [facility] Oxygen saturation in Arterial blood by Pulse oximetry 100 % 100 % [facility] Body height 188 cm 188 cm [facility] Body weight 110.8 kg 110.8 kg [facility] Body mass index (BMI) [Ratio] 31.36 kg/m2 31.36 kg/m2 [facility] Systolic blood pressure 129 mm[Hg] 129 mm[Hg] [facility] ([facility]) Diastolic blood pressure 82 mm[Hg] 82 mm[Hg] [facility] ([facility]) Heart rate 76 /min 76 /min [facility] ([facility]) Body height 75 [in_i] 75 [in_i] [facility] ([facility]) 6'3" Body weight 245.00 [lb_av] 245.00 [lb_av] [facility] T ([facility]) Body mass index (BMI) [Ratio] 30.6 kg/m2 30.6 k g/m2 [facility] ([facility]) Nicholls body weight 196 [lb_av] 196 [lb_av] [facility] ([facility]) Body weight 111.132 kg 111.132 kg [facility] ([facility]) Body surface area Derived from formula 2.39 m2 2.39 m2 [facility] ([facility]) Systolic blood pressure 125 mm[Hg] 125 mm[Hg] [facility] ([facility], [facility]) Diastolic blood pressure 86 mm[Hg] 86 mm[Hg] [facility] ([facility], [facility]) Heart rate 80 /min 80 /min [facility] ([facility], [facility]) Respiratory rate 16 /min 16 /min [facility] ( [facility], [facility]) Oxygen saturation in Arterial blood by Pulse oximetry 98 % 98 % [facility] ([facility], [facility]) Body temperature 98.7 [degF] 98.7 [degF] [facility] ([facility], [facility]) Body weight 250.00 [lb_av] 250.00 [lb_av] [facility] T ([facility], [facility]) Body height 74 [in_i] 74 [in_i] [facility] ([facility], [facility]) 6'2" Body mass index (BMI) [Ratio] 32.1 kg/m2 32.1 k g/m2 [facility] ([facility]) Patient Treatment Plan of Care Planned Activity Planned Date Details Description Data Source (s) clopidogrel 75 MG Oral Tablet 08/14/2021 12:00:00 AM EDT [facility] atorvastatin 80 MG Oral Tablet 08/14/2021 12:00:00 AM EDT [facility] Aspirin 81 MG Chewable Tablet 08/14/2021 12:00:00 AM EDT [facility] Nitroglycerin 0.4 MG Sublingual Tablet 08/13/2021 12:00:00 AM EDT [facility] Metoprolol Tartrate 25 MG Oral Tablet 08/13/2021 12:00:00 AM EDT [facility] Acetaminophen 325 MG Oral Tablet 08/13/2021 12:00:00 AM EDT [facility] normal saline flush 0.9 % injection 3 mL 08/12/2021 06:00:00 AM EDT [facility] normal saline flush 0.9 % injection 3 mL 08/12/2021 06:00:00 AM EDT [facility] sodium chloride 0.9% (NS) infusion 08/12/2021 04:00:00 AM EDT [facility] Acetaminophen 325 MG Oral Tablet 08/11/2021 11:07:22 PM EDT [facility] ondansetron (ZOFRAN) injection 4 mg 08/11/2021 11:07:07 PM EDT [facility] 2 ML Metoclopramide 5 MG/ML Prefilled Syringe 08/11/2021 11:07:07 P M EDT [facility] 1 ML Lorazepam 2 MG/ML Injection 08/11/2021 10:48:01 PM EDT [facility]
[2021-11-05] MEDS ORDERED: ASPI1CHW3 PO (06:51)
[2021-11-05] MEDS ORDERED: QC A650T3 PO (06:51)
[2021-11-05] MEDS ORDERED: PLAV1TAB2 PO (06:51)
[2021-11-05] MEDS ORDERED: NITR4TASL SL (06:51)
[2021-11-05] MEDS ORDERED: METO1TAB87 PO (06:51)
[2021-11-05] MEDS ORDERED: ATOR80TA59 PO (06:51)
--- OUTSIDE RECORDS SUMMARY | 2021-11-05 07:26 | CCD ---
Author Author [facility] Organization [facility] Address Unknown Phone Unavailable Care Team Providers Care Risk Assessment Consultant Name Role Phone Jarrett, Akila SHREDDING MACHINE TENDER Unavailable Unavailable Jarrett, Akila SHREDDING MACHINE TENDER Unavailable Unavailable Jarrett, Akila SHREDDING MACHINE TENDER Unavailable Unavailable Jarrett, Akila SHREDDING MACHINE TENDER Unavailable Unavailable Jarrett, Akila SHREDDING MACHINE TENDER Unavailable Unavailable Jarrett, Akila SHREDDING MACHINE TENDER Unavailable Unavailable Jarrett, Akila SHREDDING MACHINE TENDER Unavailable Unavailable Jarrett, Akila SHREDDING MACHINE TENDER Unavailable Unavailable Jarrett, Akila SHREDDING MACHINE TENDER Unavailable Unavailable Jarrett, Akila SHREDDING MACHINE TENDER Unavailable Unavailable Jarrett, Akila SHREDDING MACHINE TENDER Unavailable Unavailable Jarrett, Akila SHREDDING MACHINE TENDER Unavailable Unavailable Jarrett, Akila SHREDDING MACHINE TENDER Unavailable Unavailable Watson, L Vane PA Unavailable [...] Unavailable Watson, L Vane PA Unavailable Unavailable Watosn, L Vane PA Unavailable Unavailable Watson, L [...] is protected by Article 27-F of the [facility] Public Health law. If you continue you may have access to information: Regarding HIV / AIDS; Provided by facilities licensed or operated by the [facility] Office of Mental Health; or Provided by the [facility] Office for People With Developmental Disabilities. If such information is present, then the following [facility] mandated warning applies: This information has [...] law may result in a fine or detention sentence or both. A general authorization for the release of medical or other information is NOT sufficient authorization for further disc losure. Family History Family Member Name Family Member Gender Family Member Status Date o f Status Description Data Source(s) Unknown Unknown Problem [facility] ([facility], ) Encounters Encounter Providers Location Date Indications Data Source(s ) Outpatient Attender: Vane MATA.[email or web address]-SJP.RENO 12/2020 12:00:00 AM EDT - 08/31/2021 11:49:10 AM EDT [facility] Inpatient Attender: KEMAL VASQUES MDAdmitter: KEMAL FOSTER MD [id number] 08/11/2021 09:43:00 PM EDT - 08/13/2021 12:40:00 PM EDT [facility] Patient discharged. Outpatient Attender: Angelita Park/Nico/Casey estrella 06/11/2021 11:15:00 AM EDT [facility] ([facility]) Outpatient Attender: Akila Jarrett NP Maite Lugo Beatriz felix 03/07/2021 09:15:00 AM EDT [facility] ([facility]) Medications Medication Brand Name Start Date [...] tablet (75 mg total) by mouth daily [facility] Aspirin 81 MG Chewable Tablet aspirin 81 MG chewable t ablet aspirin 81 MG chewable tablet 08/14/2021 12:00:00 AM EDT 81 mg Oral ac tive Chew 1 tablet (81 mg total) daily [facility] atorvastatin 80 MG Oral Tablet atorvastatin (LIPITOR) 80 MG tablet atorvastatin (LIPITOR) 80 MG tablet 08/14/2021 12:00:00 AM EDT 80 mg Oral active Take 1 tablet (80 mg total) by mouth daily [facility] Metoprolol Tartrate 25 MG Oral Tablet me toprolol tartrate (LOPRESSOR) 25 MG tablet metoprolol tartrate (LOPRESSOR) 25 MG tablet 08/13/2021 12:0 0:00 AM EDT 25 mg Oral active Take 1 tablet (2 5 mg total) by mouth 2 (two) times a day [facility] Acetaminophen 325 MG Oral Tablet acetaminophen (TYLENO L) 325 MG tablet acetaminophen (TYLENOL) 325 MG tablet 08/13/2021 12:00:00 AM EDT 65 0 mg Oral active Take 2 tablets (650 mg total) by mouth every 4 (four) hours as needed [facility] 25 mg 08/13/2021 12:00:00 AM EDT tablet [...] (five) minutes as needed for chest pain [facility] sodium chloride 0.9% (NS) infusion 4178-6171-85 08/12/2021 11:00:00 AM EDT 75 mL/h Intravenous completed at 75 mL /hr, 75 mL/hr, Intravenous, Continuous, Starting on 08/12/21 at 1100, For 6 hours, Post-op [facility] Medication administered onsite iopamidol (ISOVUE-370) 76 % [id number] 08/12/2021 09:44:49 AM EDT active As needed, Starting on 08/12/21 at 0944, Intra-Proc edure [facility] Medication administered onsite 1 ML heparin sodium, porcine 1000 UNT/ML Injection hep sim (porcine) injection heparin (porcine) injection 08/12/2021 09:28:34 AM EDT active As needed, Starting on 08/12/21 at 0928, Intra-Procedure [facility] Medication administered onsite 4 ML Verapamil hydrochloride 2.5 MG/ML Injection verap carlos (ISOPTIN) injection verapamil (ISOPTIN) injection 08/12/2021 09:28:15 AM EDT active As needed, Starting on 08/12/21 at 0928, Intra-Procedure [facility] Medication administered onsite lidocaine 1 % injection 4349-1333-66 08/12/2021 09:27:49 AM EDT active As needed, Starting on Sun at 0927, Intra-Procedure [facility] Medication administered onsite 2 ML Midazolam 1 MG/ML Injection midazolam (VERSED) in jection midazolam (VERSED) injection 08/12/2021 09:27:42 AM EDT active As needed, Starting on 08/12/21 at 0927, IntraProcedure [facility] Medication administered onsite fentaNYL Citrate (PF) (SUBLIMAZE) injection 1065-6223-08 08/12/2021 09:27:30 AM EDT active As neede d, Starting on 08/12/21 at 0927, Intra-Procedure [facility] Medication administered onsite Aspirin 81 MG Chewable Tablet aspirin chewable tablet 81 mg aspirin chewable tablet 81 mg 08/12/2021 09:00:00 AM EDT 81 mg Oral activ e 81 mg, Oral, Daily, First dose on 08/12/21 at 0900 [facility] Medication administered onsite clopidogrel 75 MG Oral Tablet clopidogrel (PLAVIX) tab let 75 mg clopidogrel (PLAVIX) tablet 75 mg 08/12/2021 09:00:00 AM EDT 75 mg Oral active 75 mg, Oral, Daily, First dose on 08/12/21 at 0900 [facility] Medication administered onsite potassium chloride (KLOR-CON) packet 20 mEq 8627-9299-83 08/12/2021 08:00:00 AM EDT 20 meq Oral completed 20 mEq , Oral, Once, On 08/12/21 at 0800, For 1 dose [facility] Medication administered onsite normal saline flush 0.9 % injection 3 mL 23470-935-70 08/12/2021 06:00:00 AM EDT 3 mL Intravenous active 3 mL , Intravenous, Every 8 hours (scheduled), First dose on 08/12/21 at 0600, Pre-op
Rapid push positive pressure flushing shall be performed with a 10 cc normal saline syringe to check the PATENCY of a PIV site prior to any infusion therapy initiation unless resistance is met.
[facility] Medication administered onsite normal saline flush 0.9 % injection 3 mL 79501-227-49 08/12/2021 06:00:00 AM EDT 3 mL Intravenous active 3 mL , Intravenous, Every 8 hours (scheduled), First dose on 08/12/21 at 0600, Pre-op
Rapid push positive pressure flushing shall be performed with a 10 cc normal saline syringe to check the PATENCY of a PIV site prior to any infusion therapy initiation unless resistance is met.
[facility] Medication administered onsite sodium chloride 0.9% (NS) infusion 5328-6550-10 08/12/2021 04:00:00 AM EDT 100 mL/h Intravenous active at 100 m L/hr, 100 mL/hr, Intravenous, Continuous, Starting on 08/12/21 at 0400, Pre-op
Start two hours prior to scheduled start time
[facility] Medication administered onsite atorvastatin 80 MG Oral Tablet atorvastatin (LIPITOR) tablet 80 mg atorvastatin (LIPITOR) tablet 80 mg 08/12/2021 12:00:00 AM EDT 80 mg Oral active 80 mg, Oral, Daily, First dose on 08/12/21 at 0000 [facility] Medication administered onsite normal saline flush 0.9 % injection 3 mL 20986-923-99 08/12/2021 12:00:00 AM EDT 3 mL Intravenous aborted 3 mL , Intravenous, Every 8 hours (scheduled), First dose on 08/12/21 at 0000
Rapid push positive pressure flushing shall be performed with a 10 cc normal saline syringe to check the PATENCY of a PIV site prior to any infusion therapy initiation unless resistance is met.
[facility] Medication administered onsite Metoprolol Tartrate 25 MG Oral Tablet me toprolol tartrate (LOPRESSOR) tablet 25 mg metoprolol tartrate (LOPRESSOR) tablet 25 mg 08/12/2021 12:00:00 AM EDT 25 mg Oral active 25 mg, Ora l, 2 times daily, First dose on 08/12/21 at 0000
Do not administer until U tox results Hold for HR less than 60 or SBP less than 100
[facility] Medication administered onsite nitroglycerin infusion 400 mcg/mL 8862-0876-74 08/12/2021 12:00:00 AM EDT ug/min Intravenous aborted [...] mcg/min). Infuse via single port IV tubing (OwlTing ???Site Infusion Set reference #[id number]). Medication and tubing is to be discarded if infusion off for 4 hours.
[facility] Medication administered onsite Acetaminophen 325 MG Oral Tablet acetaminophen (TYLENO L) 325 MG tablet 650 mg acetaminophen (TYLENOL) 325 MG tablet 650 mg 08/11/2021 11:07:22 PM EDT 650 mg Oral active 650 mg, Or al, Every 4 hours PRN, mild pain (1-3), headaches, Starting on 08/11/21 at 2307
"Maximum dose of acetaminophen is 4,000 mg from all sources in 24 hours."
[facility] Medication administered onsite ondansetron (ZOFRAN) injection 4 mg [id number] 08/11/2021 11:07:0 7 PM EDT 4 mg Intravenous active 4 mg, In travenous, Every 4 hours PRN, nausea, vomiting, Starting on 08/11/21 at 2307 [facility] Medication administered onsite 2 ML Metoclopramide 5 MG/ML Prefilled Travon franklin metoclopramide (REGLAN) injection 10 mg metoclopramide (REGLAN) injection 10 mg 08/11/2021 11:07:07 PM E DT 10 mg Intravenous active 10 mg, I ntravenous, Every 6 hours PRN, for Nausea/Vomiting not relieved by zofran, Starting on 08/11/21 at 2307 [facility] Medication administered onsite Nitroglycerin 0.02 MG/MG Topical Ointmen t nitroglycerin (NITROSTAT) 2 % ointment 0.5 inch nitroglycerin (NITROSTAT) 2 % ointment 0.5 inch 2020 11:00:00 PM EDT 0.5 g Topical aborted 0.5 inch (0.5 g), Topical, Every 6 hours (scheduled), First dose on 08/11/21 at 2300
1 inch = 1 gram
[facility] Medication administered onsite 500 ML heparin sodium, [...] 1 unit/kg/hr IV58.1 - 87 Therapeutic, No Xzyorj61.1 - 97 Decrease infusion 1 unit/kg/hr IV [...] single port tubing (SmartSite Infusion Set ref [id number]). Medication and tubing is to be discarded if infusion off for 4 hours.
[facility] Medication administered onsite 1 ML Lorazepam 2 [...] If treatment is needed prior, notify provider.
[facility] Medication administered onsite 1 ML heparin sodium, [...] 30 units/kg IV (Maximum bolus: 5,000 units)
[facility] Medication administered onsite Insurance Providers Payer name Policy type / Coverage type Policy ID Covered alliance party ID Covered alliance party's relationship to ochoa Policy Ochoa Plan Information INSURANCE COVID-19 COVID Jodi C OVID [id number] Jodi [id number] [facility] [id number] S [id number] [facility] [id number] S [id number] [facility] (2018) Health Maintenance Organization ([facility]) [id number] Self [id number] [facility] (2018) Health Maintenance Organization (O) [id number] Self [id number] [employer] [id number] SP [id number] [facility] [id number] 18 [id number] N [employer] [facility]/P [id number] 18 [id number] N [employer] [facility] [facility] [id number] 18 [id number] [facility] P [id number] S [id number] [facility] HUMANA [id number] SP [id number] N [employer] [facility]/P [id number] 18 [id number] Problems, Conditions, and Diagnoses Code Display Name Description Problem Type Effective Dates Data Source(s) I25.10 Atherosclerotic heart diseas e of [place] coronary artery without angina pectoris Atherosclerotic heart disease of [place] Diagnosis 08/31/2021 10:35:26 AM EDT [facility] G47.33 Obstructive sleep apnea (adult) (pediatr ic) Obstructive sleep apnea (adult) (pediatr Diagnosis 08/31/2021 10:35:26 AM EDT [facility] I21.3 ST elevation (STEMI) myocardial infarcti on of unspecified site ST elevation (STEMI) myocardial infarcti Diagnosis 08/11/2021 09:43:00 PM EDT [facility] I47.2 V tach V tach [id number] 08/11/2021 12:00:00 AM ED T [facility] F10.20 Alcohol dependence Alcohol dependence [id number] 10/2021 12:00:00 AM EDT [facility] E66.9 Obesity (BMI 30.0-34.9) Obesity (BMI 30.0-34.9) [id number] 08/11/2021 12:00:00 AM EDT [facility] Z72.0 Tobacco abuse Tobacco abuse [id number] 08/11/2021 12:00:00 AM EDT [facility] E78.5 Hyperlipidemia Hyperlipidemia [id number] 08/11/2021 12:00: 00 AM EDT [facility] G47.30 Sleep apnea Sleep apnea [id number] 08/11/2021 12:00:00 AM EDT [facility] I21.3 STEMI (ST elevation myocardial infarctio n) STEMI (ST elevation myocardial infarction) [id number] 08/11/2021 12:00:00 AM EDT [facility] Surgeries/Procedures Procedure Description Date Indications Data Source(s) ECHO TTHRC R-T 2D W/WOM-MODE COMPL SPEC&COLR DOP <td>E CHOCARDIOGRAM TRANSTHORACIC</td><td>Routine</td><td>08/13/2021 8:43 AM EDT</td><td></td><td> </td> 08/13/2021 08:43:20 AM EDT [facility] TROPONIN QUANTITATIVE <td>TROPONIN I</td><td>STAT< /td><td>08/13/2021 7:58 AM EDT</td><td></td><td> </td> 08/13/2021 07:58:00 AM EDT [facility] THROMBOPLASTIN TIME PARTIAL PLASMA/WHOLE BLOOD <td>APTT</td><td>STAT</td><td>08/13/2021 7:58 AM EDT</td><td></td><td> </td> 08/13/2021 07:58:00 AM EDT [facility] BLOOD COUNT COMPLETE AUTOMATED <td>CBC</td><td>STAT</t d><td>08/13/2021 7:58 AM EDT</td><td></td><td> </td> 08/13/2021 07:58:00 AM EDT [facility] BASIC METABOLIC PANEL CALCIUM TOTAL <td>BASIC METABOLI C PANEL</td><td>STAT</td><td>08/13/2021 7:58 AM EDT</td><td></td><td> </td> 08/13/2021 07:58:00 AM EDT [facility] ECG ROUTINE ECG W/LEAST 12 LDS TRCG ONLY W/O I&R <td>E CG 12- LEAD</td><td>Routine</td><td>08/13/2021 6:57 AM EDT</td><td></td><td></td> 08/13/2021 06:57:13 AM EDT [facility] THROMBOPLASTIN TIME PARTIAL PLASMA/WHOLE BLOOD <td>APTT</td><td>STAT</td><td>08/12/2021 10:18 PM EDT</td><td></td><td> </td> 08/12/2021 10:18:00 PM EDT [facility] THROMBOPLASTIN TIME PARTIAL PLASMA/WHOLE BLOOD <td>APTT</td><td>STAT</td><td>08/12/2021 2:47 PM EDT</td><td></td><td> </td> 08/12/2021 02:47:00 PM EDT [facility] TROPONIN QUANTITATIVE <td>TROPONIN I</td><td>STAT< /td><td>08/12/2021 12:18 PM EDT</td><td></td><td> </td> 08/12/2021 12:18:00 PM EDT [facility] THROMBOPLASTIN TIME PARTIAL PLASMA/WHOLE BLOOD <td>APTT</td><td>STAT</td><td>08/12/2021 12:18 PM EDT</td><td></td><td> </td> 08/12/2021 12:18:00 PM EDT [facility] CARDIAC CATHETERIZATION <td>CARDIAC CATHETERIZATION</td><td>Routine</td><td>08/12/2021 9:46 AM EDT</td><td> ST elevation myocardial infarction (STEMI), unspecified artery</td><td> </td> 08/12/2021 09:46:[address] elevation myocardial infarction (STEMI), unspecifie d artery [facility] ST elevation myocardial infarction (STEM I), unspecified artery ECG ROUTINE ECG W/LEAST 12 LDS W/I&R <td>ECG 12- LEAD</td><td>Routine</td><td>08/12/2021 6:51 AM EDT</td><td></td><td></td> 08/12/2021 06:51:24 AM EDT [facility] TROPONIN QUANTITATIVE <td>TROPONIN I</td><td>Routi ne</td><td>08/12/2021 4:35 AM EDT</td><td></td><td> </td> 08/12/2021 04:35:00 AM EDT [facility] THROMBOPLASTIN TIME PARTIAL PLASMA/WHOLE BLOOD <td>APTT</td><td>STAT</td><td>08/12/2021 4:35 AM EDT</td><td></td><td> </td> 08/12/2021 04:35:00 AM EDT [facility] BLOOD COUNT COMPLETE AUTOMATED <td>CBC</td><td>Routine </td><td>08/12/2021 4:35 AM EDT</td><td></td><td> </td> 08/12/2021 04:35:00 AM EDT [facility] BASIC METABOLIC PANEL CALCIUM TOTAL <td>BASIC METABOLI C PANEL</td><td>Routine</td><td>08/12/2021 4:35 AM EDT</td><td></td><td> </td> 08/12/2021 04:35:00 AM EDT [facility] TROPONIN QUANTITATIVE <td>TROPONIN I</td><td>STAT< /td><td>08/12/2021 2:16 AM EDT</td><td></td><td> </td> 08/12/2021 02:16:00 AM EDT [facility] COVID/FLU AB/RSV PCR <td>COVID/FLU AB/RSV PCR</td ><td>STAT</td><td>08/12/2021 12:46 AM EDT</td><td></td><td> </td> 08/12/2021 12:46:00 AM EDT [facility] URINE CULTURE HOLD SPECIMEN <td>URINE CULTURE HOLD SPECIMEN</td><td>Routine</td><td>08/12/2021 12:46 AM EDT</td><td></td><td> </td> 08/12/2021 12:46:00 AM EDT [facility] DRUG SCR QUAL 1 DRUG CLASS METH EA DRUG CLASS <td>URIN E TOX SCREEN</td><td>Routine</td><td>08/12/2021 12:46 AM EDT</td><td></td><td> </td> 08/12/2021 12:46:00 AM EDT [facility] NT PRO BNP <td>NT PRO BNP</td><td>Routi ne</td><td>08/11/2021 11:02 PM EDT</td><td></td><td> </td> 08/11/2021 11:02:00 PM EDT [facility] TROPONIN QUANTITATIVE <td>TROPONIN I</td><td>Timed </td><td>08/11/2021 11:02 PM EDT</td><td></td><td> </td> 08/11/2021 11:02:00 PM EDT [facility] THROMBOPLASTIN TIME PARTIAL PLASMA/WHOLE BLOOD <td>APTT</td><td>Routine</td><td>08/11/2021 11:02 PM EDT</td><td></td><td> </td> 08/11/2021 11:02:00 PM EDT [facility] PROTHROMBIN TIME <td>PROTIME-INR</td><td>Add- On</td><td>08/11/2021 11:02 PM EDT</td><td></td><td> </td> 08/11/2021 11:02:00 PM EDT [facility] BLOOD COUNT COMPLETE AUTO&AUTO DIFRNTL WBC COUNT <td>C BC AND DIFFERENTIAL</td><td>STAT</td><td>08/11/2021 11:02 PM EDT</td><td></td><td> </td> 08/11/2021 11:02:00 PM EDT [facility] THYROID STIMULATING HORMONE TSH <td>TSH</td><td>Routin e</td><td>08/11/2021 11:02 PM EDT</td><td></td><td> </td> 08/11/2021 11:02:00 PM EDT [facility] MAGNESIUM <td>MAGNESIUM</td><td>Routin e</td><td>08/11/2021 11:02 PM EDT</td><td></td><td> </td> 08/11/2021 11:02:00 PM EDT [facility] HEMOGLOBIN GLYCOSYLATED A1C <td>HEMOGLOBIN A1C</td><td>Routine</td><td>08/11/2021 11:02 PM EDT</td><td></td><td> </td> 08/11/2021 11:02:00 PM EDT [facility] ALCOHOL ANY SPECIMEN EXCEPT BREATH <td>ETHANOL</td><td >STAT</td><td>08/11/2021 11:02 PM EDT</td><td></td><td> </td> 08/11/2021 11:02:00 PM EDT [facility] LIPID PANEL <td>LIPID PANEL</td><td>Rout ine</td><td>08/11/2021 11:02 PM EDT</td><td></td><td> </td> 08/11/2021 11:02:00 PM EDT [facility] COMPREHENSIVE METABOLIC PANEL <td>COMPREHENSIVE METABO LIC PANEL</td><td>STAT</td><td>08/11/2021 11:02 PM EDT</td><td></td><td> </td> 08/11/2021 11:02:00 PM EDT [facility] XR CHEST PORTABLE <td>XR CHEST PORTABLE</td><t d>Routine</td><td>08/11/2021 10:52 PM EDT</td><td></td><td> </td> 08/11/2021 10:52:01 PM EDT [facility] ECG ROUTINE ECG W/LEAST 12 LDS TRCG ONLY W/O I&R <td>E CG 12- LEAD</td><td>Routine</td><td>08/11/2021 10:02 PM EDT</td><td></td><td></td> 08/11/2021 10:02:11 PM EDT [facility] OFFICE OUTPATIENT NEW 45 MINUTES 06/11/2021 12:00:00 A M EDT [facility] ([facility] ) Results ID Date Data Source [id number] 08/20/2021 07:37:56 [facility] MR[facility] Name Date of Age Gend*PT [id number] Jean-Claude Harris 1970 51 years M IPPT Location Admission Date/Time Visit ID Attending [id number] 08/11/212142 --- --- EPI ID CSN Admitting Provider [id number] Kemal Vasques MD([id number]) Attestation signed by Kemal Vasques MD at 08/20/2021 7:37 AMI saw and evaluated the patient and reviewed Ms. Fall's note. I agree withthe history, physical and medical decision making with the following additions,exceptions, and/or observationsNo events overnightNo CPHD stableAmbulatingDC homeSignature: Kemal Vasques MDDate: August 20, 2021Time: 7:37 AM Physician Discharge Summary Jean-Claude HarrisMRN: [id number] date: 08/11/2021ttending Physician: Kemal Vasques MDAdmission Diagnosis: STEMI (ST elevation myocardial infarction)Secondary Diagnoses: Principal Problem: STEMI (ST elevation myocardial infarction)Active Problems: Sleep apnea Hyperlipidemia Tobacco abuse Obesity (BMI 30.0-34.9) Alcohol dependence V tachPrinciple Procedures:1. LHC: Prox LAD lesion is 50% stenosed.No complications, estimated blood loss minimal.Patient presents with an interesting scenario. His KS by EKG appears to beinferior however by angiogram there is a small filling defect in the proximalLAD consistent with a clot. I elected to treat this with a drug-eluting stentfor fear of underlying plaque rupture that could be a potential source ofanother KS in the future. This was done with [...] tobacco abuse, obesity, [facility]. He states that he was on the [employer] and onreturn got into an argument with [...] in his left arm. On arrival to [facility], his EKGrevealed ST elevation in leads II, III, aVF. Initial troponin negative. was consulted and recommended TNKase, heparin, asa, plavix. TNKase wasdelayed for CTA chest to r/o dissection. He had pain reduction but notelimination with SL nitro. He was transferred to [facility] for a higher level of care.On arrival to [facility], he is c/o variable CP ranging [...] continued. His COVID swab was negative at [facility].Pre-procedural COVID test ordered. He will be kept NPO for cath in am. Hospital Course & Complications: Pt was transferred to [facility] for further cardiacworkup. He was stable [...] will follow up with PCP office at [place] within 2weeks.Past Medical History:Past Medical History:Diagnosis Date [...] Get Your MedicationsThese medications were sent to [facility] [place] - [id number] RT [id number] [place] [address] [facility] [address] aspirin 81 MG chewable tablet atorvastatin 80 [...] rce(s) Supporting Document(s) ID Date Data Source [id number] 08/13/2021 09:53:06 AM EDT [facility] Name Value Range Interpretation Code Description Data Zofia rce(s) Supporting Document(s) &PDF [facility] YNKKCc5rRrIAJuOg34/PQVbyDAKpb8NaJHkvPVv6KAhjRIDdR1ZqbTkeMZgUM6kZVaoAG31xXVhUGD6N 0b3 [file] ICAgICAgICAgICAgICAgICAgICAgICAgICAgICAgIC EdJYJqOGLfKFBjTMCwMMFqGZCwJELtYFOgLVIyJZOkYPGhSUAzYFXtMP5DSYXkMETeJJOaNYDjCYGdYI AgICAgICAgICAgICAgICAgICAgICAgICAgICAgICAgICAgICAgICAgICAgICAgICAgICAgICAgICAgIC LlQUMzTOYtBDPnQPTzLJNhTSHcJBFjNT0PVEGdADTo ICAgICAgICAgICAgICAgICAgICAgICAgICAgICAgICAgICAgICAgICAgICAgICAgICAgICAgICAgICAg CGSqSNZxKEImYJGuPOOjFLHuDLBhPRLeJHPbIKHbJWFlWL7XDQYbYYZyILExKIJfPPBkUQDaQYWsKQFc ICAgICAgICAgICAgICAgICAgICAgICAgICAgICAgIC ZxSOWeSRVnTSFnPCHmVUQhHNUzIHElKQMaEDJxXBMcHZLsHWHeSEQaBJFdLI3TMNMdZWKzXSLeLBXrMD AgICAgICAgICAgICAgICAgICAgICAgICAgICAgICAgICAgICAgICAgICAgICAgICAgICAgICAgICAgIC YlXOVaWEAiKXQhLDWkMMNhJHUrDQRkVOLtEV8UNMXk ICAgICAgICAgICAgICAgICAgICAgICAgICAgICAgICAgICAgICAgICAgICAgICAgICAgICAgICAgICAg CDOxUBHwECPiYVQtYTUyOTBhBDPiXJLsVYJyRSMmKCIuURPiDI5HJYMzEBBkFHFsCFLvQDBsIHEbLNJa ICAgICAgICAgICAgICAgICAgICAgICAgICAgICAgIC JdSPFmMXIaIDCgRUIeYOWmUMSgJHRmNONrTAHwVZVdPCVtOFMwZJXfGTVyTTDhXB0GMPQbRHQjBMMbYT AgICAgICAgICAgICAgICAgICAgICAgICAgICAgICAgICAgICAgICAgICAgICAgICAgICAgICAgICAgIC AeILYhEKOtIZLcDZMcSSUtHIBvZBDeZMSmHWWgDP8O ICAgICAgICAgICAgICAgICAgICAgICAgICAgICAgICAgICAgICAgICAgICAgICAgICAgICAgICAgICAg HNCdFDDnFKKrNAVeTTJeNLZzLWQpJQMoOFBsLODeJZDwKONjEMBxEQ5WLTGsNUQsKADcPGUwWHOcCBVk ICAgICAgICAgICAgICAgICAgICAgICAgICAgICAgIC EeLUDzIOExXCMhFHRnOKAcNXIdBWMlLIWgVFFpNPUzPOUnFHDyRFEjYOVoDHRbSVWfJL7ZUB53cWQml7 T0XBLsXF6rpai/Or2RAYadfiDtcNJhFO5TUaSbWA7ozo6VRpRvKL0akn4NEBeCSiStV3F0eLVtKZNtKY FETjWhH84zTEnwPc80XKpkCDFfWjVvGCt3Co7TBiBk D0psKPYaYmV3WXXiVrI8FCJjWiK5GJRmNeQdFZSsSUYcOG5SNIHaW433trBfIB3HIu1FGmNxBT3ogs2N EsyqEZMjYojVDuq5XEwjYP9QcTInA7YyiRZdx5zRQzLpZ1WMXMZ2HELvRm0SPWGxHlFrTLEjWGolTK0e EESfTIKIsBapkiA6NH0BHO0pxmLnKB4EOkNhSl6eCx 9AHnWeH3CgR2TxDRZfSDLGNDswKW5HZCImWOD0ASIqDRTdCENIPgJwQ78cOZ0PO7Opy87iFuX2PFMyQm EbGKntEP46yLnwmmLjtATzzJakQS1AHh6+DQplbmRvYmoNCnhyZWYNCjAgNDANCjAwMDAwMDAwMDAgNj F8JbSsLc8QCVWpGYLgDWCnBmDyTMFiRDRjINpqRICv LQFcXMoxQZQeHXYgJE7KSrIrCAGfIfK3LJppMCAiCFUuoo8ZHKGpMNNxNPB8EYDzOGHcLTCfOJweNHQg FAPzGiQ0KGBlWPLtYL0ZDwPxPOKbREM2SxWxSHMaFKWmbo4KQVYyIOArVUr8NUBzQAKyNBEbNCbqOKDz LZV8GPK8ALMzULVePR5MJmXaRSLgRKfvQEBkQCAqBL Lind8FAUUlMTKtYgCuUDZvHBBfNFByEKadRMFvPGA9AvZ5XZCiHDKrTR2PGyDwJPLiUBm5RUIdHFOzFK Shaw0RAABtXRNcUJaqCFSzCMWyGJVaSSehGZUnYYWtFANpBZDlUNPqFO3NOsIiVKScDTUjBXPzMNMaBD Gbjx7EZMXlBCViRXR3VDGrLARzEZEkBKoqVHUfHWHy WnV8JMReONBhIX1WNgDdYSWaFGC7EhHfGMLhFMHpsz4NYAJlVRHdAmA7MoSiUJEjYVBqBGtvHUQiEIIe GgrvCZEiHEOfMS3ZClKgGDYaAOH5DlRaCHWpLRYzui1CBXNgZBBnSjp5GWFdPEQtZVDpQNpbYWWxYHPp MrM5TZNyLQQePO7NTiSpMQGnXbM5MyTmVGCyRTMmpg 0JBNDhHNTpSGQ2TkTyMAQzGBYpLXltWVEaZOX4PdIdIRNqTHNnAK5LFeKeAZUgLlNhRvScFWCqWGWaao 5IZVSeIYUhZISmRUYlGNBvMGEmBQbfAKYcOGA1QjVnORKdNRSvDS5YRwQvZDLxUhp0GGzbCCGeSZGqur 1TAQFcRIG4FTchXrMjRMTuEHAlGGnoNPHbJYN7JVxz TYZbLYZcPJ4UAtCbSJCxHAq8RGPyPIUmZXUoxx5MUGViPXD1TpjpFSQhCIXtHLVoQPpzXMZyKRW0SbLw GHVnKKKnCU0YDsOfGLMaXsQwBaMeTMAyITOkrm1IOGBlYIQ7Wrv3YJWfRSQkONPfDOhtKDMqZWU5DtM4 FLMyCKClNS9UGeVoAXHnEiRdUHHmOYRcDUZdjw2ZgD NjdOyogc7NEJyRGt1KcVtwUZLfOZmwEl6ooQEzSZAaJUZUUm0FumHcNMYeAYEDWKcaAQKdMBp3IOigKo B9XrXwLGBfTpJ4NWQcPLWhNJC6D4C7MhN1ZsE5Owu6GVX4JRH2MiOwHqMvHNG5HoR8ZGL4MEjsFJQ3ZQ U+RJ5eGPo+Kl5Mr7CxwnS6sjJrYIw4MrDcAL4HHAOEW0ESCb== ID Date Data Source [id number] 08/13/2021 10:17:50 AM EDT [facility] Name Value Range Interpretation Code Description Data Zofia rce(s) Supporting Document(s) TROPONIN I 3.56 ng/mL (<0.05) H [facility] Less than 0.05: Myocardial injury unlike lyGreater than or equal to 0.05: Highly suggestive of myocardial injuryCorrelation with rise and/or fall ofserial troponins, clinical symptomsand ECG changes is necessary.ALERTED CRITICAL RESULT BRIAN/[id number] AT 1016 ON [id number] BY [id number] ID Date Data Source [id number] 08/13/2021 10:07:55 AM EDT [facility] Name Value Range Interpretation Code Description Data Zofia rce(s) Supporting Document(s) SODIUM 143 mmol/L (136-145) [facility] POTASSIUM 4.0 mmol/L (3.6-5.2) [facility] CHLORIDE 111 mmol/L (100-108) H [facility] CO2 25 mmol/L (22-31) [facility] ANION GAP 7 mmol/L (7-16) [facility] UREA NITROGEN 9 mg/dL (7-24) [facility] CREATININE 0.89 mg/dL (0.80-1.30) [facility] BUN/CREAT RATIO 10.1 RATIO (10.0-20.0) [facility] GLUCOSE 93 mg/dL (70-99) [facility] CALCIUM 8.5 mg/dL (8.4-10.2) [facility] GFR >60 ml/min/1.73m2 (>59) [facility] GFR ( AMER) >60 ml/min/1.73m2 (>59) [facility] GFR INTERPRETATION [facility] --NORMAL KIDNEY FUNCTION OR MILD DISEASE - GFR >OR= 60CHRONIC KIDNEY DISEASE - GFR 15 - 59RENAL FAILURE - GFR <15 Est. GFR calculation based on the MDRDstudy equation, which assumes a steadystate for creatinine. Est. GFR should notbe used for medication dosing. ID Date Data Source [id number] 08/13/2021 09:56:45 AM EDT [facility] Name Value Range Interpretation Code Description Data Zofia rce(s) Supporting Document(s) APTT 62.9 s (22.0-34.3) H [facility] ID Date Data Source [id number] 08/13/2021 09:42:48 AM EDT [facility] Name Value Range Interpretation Code Description Data Zofia rce(s) Supporting Document(s) WBC 4.0 10*3/uL (4.1-11.0) L [facility] RBC 4.73 10*6/uL (4.60-6.10) [facility] HGB 13.6 g/dL (13.5-18.0) [facility] HCT 40.0 % (41.0-53.0) L [facility] MCV 84.6 fL (80.0-95.0) [facility] MCH 28.7 pg (27.0-32.0) [facility] MCHC 33.9 g/dL (32.0-36.0) [facility] RDW 14.2 % (10.5-14.5) [facility] PLT 175 10*3/uL (150-450) [facility] MPV 8.4 fL (7.1-10.7) [facility] ID Date Data Source [id number] 08/13/2021 07:45:56 AM EDT [facility] Name Value Range Interpretation Code Description Data Zofia rce(s) Supporting Document(s) EKG [facility] GNIGJd1oAgEWWzGov8MmCnJxBTPmJC7ggwu9A2Z6rCKaB2DibXOfa6qhH1XfM7YoIKHbPJOTSK7TkAAn jb2 [file] YbaB1ZE+Genaro+pyk95HZHbJnG3oROuxWwEHxqxE7nR5 k0TS0oOOOG5bV0RyZJjiNuSkTGfAfeVbmVVogalkkdihjY0EhkL+LlHoK3AhvtxwzOQU3rdlM4n1K+0L 84T4pobh8K771ODw0WovC/SKPGbM1c/45gLuttWcauvRgU0ck/H+aY/d+CiTlMAfXXbjTDbtuSRlMc+x Pa8VnD7a6wO/OpyDI5rzYP/BN/YbfGO/lNI4EaYD8M ciPFqUxjYxGQ1rRlFCWQD7e+n2tzYXhNtlYG14PgxQipohOyHZ4VDm75QG/q/OI6zi736x/7vh918S+c 9//es3rZ/k//vXbx6/yVXJ/ZK/rZdrelTzF5FX0rseqKuNtFwyAl2ZiZWviZHltKjktRdlwBivQbkaNj gD1ibCmdiJUu0kbVgUaqkVWs9dpEzXssnYDt6VbkpV N0TrccNUipvzzPOfzZmsRQocZddV8s5EqjV2a4Sdmy0rzOlaq9ysAcnh9y4ufCixxxMUxxAkK/2fZ2ja O0TResVfRX1uvA7qelU+yd/O0Ow2IoGDtjdcSv5Cl8HAkVZH/YXuYhwB2mpDIiD6v7LHoo6jmRJwu4ct VVpUaVGlRZUWVVpUaVGlRZUWVVpUaVGlrSptVWmrSl nZ8yzFJyA2giTGjr0huQBoq1fzCruh1zrHzgu6JzErDv3VvecA37OoMXl50o6rzqZZ2j7sJ/Y0bBrvoZ Yqytl2Febj2hv4XgOlNXnsBpKgwm5RDdwh6AyomvwVed1aoHKeh8xaLxpi7pyTZae6RgQMSo5wuTeIzb uSQf8zeRsNcwbJEt8ypGoZHxX5tjSVbg1kqSVse4uq Yzbw9ouWfjh3BmOuRc0IgevG45CblzV9dlqisO2q4TiiXX6+5d7xlcNM8t99W/95Fw7P7ho8teMpsORs 95xSdeYmy2t24LdPz7YuD/1jwhvZsW0wI37m/Zuv/Shk52BnmFu0c1ew+uC/kx7AD6+29wJGT07/yus/ vKs+E/WZqE+gPgE5C/gN3rm3Ny5u/d46CSWcnl+3al fv4O/gH1X/YjYozUZ7Dz6dLzctK/La0Bm7IpIDifY6Ah09Ml6Uulw/+Gvw4AF01Ao+OO3dwp/6pmQ17D P8A/kF5peT7yY38F/tnZ/k/Mi61gC6YC+TDxnuMHu2Yrq/y9pavrt7w8fs3uIHg/QsJctsy66k+F97Z8 /0D9+V14D/qEgElw7dEfh+bDdGT5TV6K91e/M856Jn Marcus/1CWxVb953/X7ae9N//Jlsuk184dVmP/23jTwA/qE6xb1e452Wwdqz4p/uEkrcM9QG//Swp/2Zvq0 N3kC/Ss9KlvS/tfe+E91scwxzfCZotStgX7zS/tjihsQpyn9LtQ/qwrrX2RWQs5Zi+Xe7TcF2w+M0v9E /85V/XINa9sT98znoJE/ULotvN3q0GXcXi3a9ojdhY 1F97YWmm1s9JkcJmAcuD/AdQ8e2jLZ+D93BMzo+ro1PLdxs/7pLG407ifs/6WFX8D/5zpCJEqI4I1d/O FZX+F/oe6v9Nmc0zHTZ2+I7youaWkGTO3l389tGZqnXCC95J92C/WPNr5RRVpvRf0U/IrrvJP4JRs1H4 38+1yNX5CFn7g6GWcA+G270wP65Xy4+vemwW/AW/Xj 8jdBre5of+sCawb033UnCHaiJ/wLeNgbez/8uYCZY+csl4vz4gYx49yqt5vIe2/hdJo1EqzZZ0OvmN/A O/gd+Uc4UO8vhYexjjJpNsRPitYcBlFA8Evn8aDQzBVrKpkuP/bz2x03g6355H7QPrhk8N0AO8xwhYOO L/myp97JnpIk1MfaP0K9bVN6rnK0m+LvaK/sK/VjR/ /NigA6XO3zprK/yKKW0hDTCModT5S46iwYcQC5wK3g2Z/CNobFsm0QMl/DrpiGTx2I8TdFHvnRHm31tu ZSz4PzbHvFzpI4QljgodAtLTBA4YtoD8qAl4iE/y5+w/drX+wC0Z9pGZ2Z/xrae+apbjXWx9UzWAtaKa KH1W9H03qbI3T9sZA/AY/2GuYr/z5b1uj5dxA+fANe 14JrtEx5i1334Ewzr6/jnjffg6B+8ln6d/Lhw63C7ps924vWuc2z73XvBw0/4NG/E/07+1m2eBmefmcg vb71htPlzun+unh//0Rj47SG8Va9C8J+Ld92S8D/cxd/oH8D32+gvYH+DXy/gfYG+jcwngPtDYMcf//x txjF8gwc4FecI0xX7DvaI0S1qW/3KpP9vI8I3brpSg 0P05QqcSxvhlN/4qgE4gK+Xfh+x2632huyvgqwXS0Y1iu9M312jjlX5g58e1Of1Vwmzl1K/2vj/yv7Kt MD+LKf+zbg8T+BlJR3Kar92v3q/9+N/+8u/1rMgvSfPgHoetDgyWi4v1/02SQ0peGD0mhvoL/o94X6N3 18xr3jS/o3obeyNNu1Y7dbz4mJirHp1R5sR82bk35T 1Hme7ln6cje+x1f/k5Rsr2ef+Pw1Ts8z1Gmz4B9sjX6TjNMliaxRDvKspV/x30xTxC2FanGKyUPMXkWG A7/Yn1Hc5fQ4pynEEcmhDQg9z2976v79ybBImxpWXtPmd/DJaB4FR/9q5PK71hcNM5tnYqY+J Luis+3yH7 [file] jStqDMU6Hp3MyuTkHRMfQOZBGx7Eh523SNVtIEXHGng+JdttuHOobDktZHUTHCG1RbeFEOAIP3Z= ID Date Data Source [id number] 08/12/2021 11:35:20 PM EDT [facility] Name Value Range Interpretation Code Description Data Zofia rce(s) Supporting Document(s) APTT 44.9 s (22.0-34.3) H [facility] ID Date Data Source [id number] 08/12/2021 04:42:39 PM EDT [facility] Name Value Range Interpretation Code Description Data Zofia rce(s) Supporting Document(s) APTT 90.9 s (22.0-34.3) H [facility] ALERTED CRITICAL RESULT TOJOSHUA [id number] D5 [id number] ON 08/12/21 AT 1641 [place] [id number] ID Date Data Source [id number] 08/12/2021 03:37:04 PM EDT [facility] Name Value Range Interpretation Code Description Data Zofia rce(s) Supporting Document(s) TROPONIN I 9.34 ng/mL (<0.05) H [facility] Less than 0.05: Myocardial injury unlike lyGreater than or equal to 0.05: Highly suggestive of myocardial injuryCorrelation with rise and/or fall ofserial troponins, clinical symptomsand ECG changes is necessary.ALERTED CRITICAL RESULT TOJOSHUA [id number] D5 [id number] ON 08/12/21 AT 1535 [place] [id number] ID Date Data Source [id number] 08/12/2021 02:41:47 PM EDT [facility] Name Value Range Interpretation Code Description Data Zofia rce(s) Supporting Document(s) APTT 123.3 s (22.0-34.3) H [facility] IF RESULTS ARE QUESTIONABLE/PLEASE RECOL LECT SAMPLEALERTED CRITICAL RESULT TOJOSHUA [id number] D5 [id number] ON 08/12/21 AT 1439 [place] [id number] ID Date Data Source [id number] 08/12/2021 10:02:51 AM [facility] INFORMATIONPatient MRN Name Date of Age Gend*PT [id number] [place] Jean[place]ude 1970 51 years M IPPT Location Admission Date/Time Visit ID Attending [id number] 08/11/212142 --- Kemal Vasques MD([id number]) EPI ID CSN Admitting Provider [id number] Kemal Vasques MD([id number]) Attestation signed by Kemal Vasques MD at 08/12/2021 10:02 AMI saw and evaluated the patient and reviewed Ms. Pack's note. I agree withthe history, physical and medical decision making with the following additions,exceptions, and/or observationsGarrett is a pleasant 51-year-old gentleman with no significant prior cardiachistory who presented with sudden onset of chest pain to [facility]. EKG showed acute inferior STEMI. He was given TNKase with successfulreperfusion. He had some residual chest pain upon arrival but his EKG hadcomplete resolution of the ST elevation. This morning he is pain-free and willbe referred for cardiac catheterization per protocol.Signature: Kemal Vasques MDDate: August 12, 2021Time: 10:02 AM --Inpatient History & PhysicalDSentara [facility] CenterN: [id number] and Plan:Principal Problem: STEMI (ST elevation myocardial infarction)Active Problems: Sleep apnea Hyperlipidemia Tobacco abuse Obesity (BMI 30.0-34.9) Alcohol dependence V tach1. STEMI: states he started having CP today after an argument. No prior cardiachistory. No family hx of cardiac dz. He was treated with TNKase, heparin,plavix, asa at [facility]. Continue heparin. Start nitro for ongoing CP. [...] tobacco abuse, obesity, HLD who presented to [facility] today with chest pain. He states that [place] the [employer] [place] and onreturn got into an argument [...] in his left arm. On arrival to [facility], his EKGrevealed ST elevation in leads II, III, aVF. Initial troponin negative. was consulted and recommended TNKase, heparin, asa, plavix. TNKase wasdelayed for CTA chest to r/o dissection. He had pain reduction but notelimination with SL nitro. He was transferred to [facility] for a higher level of care.On arrival to [facility], he is c/o variable CP ranging [...] continued. His COVID swab was negative at [facility].Pre-procedural COVID test ordered. He will be kept [...] Social Gatherings with Friends and Family: Attends [employer]: Active Member of Clubs or Organizations: [...] As noted above. Labs pending.Signature: Marion Pack STRUCTURAL ANALYST-BCDate: August 11, 2021Time: 11:11 PM Name Value Range Interpretation Code Description Data Zofia rce(s) Supporting Document(s) ID Date Data Source [id number] 08/12/2021 09:56:44 AM EDT [facility] Name Value Range Interpretation Code Description Data Zofia rce(s) Supporting Document(s) &PDF [facility] OIVCAg8wUfLLElIp39/MQJkfBJSbh7WbBYiiAHu9XDuoEHVqQ7DvaHukGDeFB4hTDtpOV93oSJcCRJ1N 0b3 UsNPPyYrTPjQG9JL4tQRTqayDhjoX9mK9cVG3HDOW+Cp0RMV9hy3YcCSz0JPHoz6WlHYjrGIi1D0KqhK ImwoZiYwpswDQRNAAtRPGxN5mygjj3vTIdSlr5Kp9GWzYfc4MaMRTcHWlMpp1rT59dYuR+X2D/A4HFYl lxdfmDWPiZXNlMRrTNk1UaJSnjBfYH1xcCJM1aFH1+ 95mLIHl8FSj01wB2sIJ2TaT036us3NXF//0hDgNPSimyf+tfg0iL/q34+9/XKhtf33Q8k6FM34/75RBH +jYK4PrJ4/OzWI2a7UqA28s1RDrtUbitLKF+2fmqATtvlk7yYvALvnpNB62QR2vYMIDH8Ewq4RwdR1Tc 31V2PUGD7QQd5mhwNW36nwDXjE4LQ5AopItMASXXCf 4SGn6V9VrV0XJO/JcWseeAO9AIkjCPABtyUPGGeIzLopAfVA+8bq5/mWr+RYsz6xEzaDwUkzmPf14+7V 4dvTnrXoreydnJ+Ixa0b643/K0Z4+ov2F7qfsCnro8bGxsMFPFIidaspkDKjJjswGNOAWVZX4SpS7dSo tLZxMHnlQQiTZelXtklF54OTj5UZAQC1O/Gurmeet+RWOZ [file] Ubl0Gr+TTSXkVANVis1/idk9AUXDYKPDUvLXi65o7H OYyvIeE7rPTMbUygcX5KgKJr3IhZPeEYlN5T0ZP8CfuItNtFy2LGVNaG88L8xs1yrdzD8jQeC+Oe1UHI lEmGJEGXWCfQwHV2m2eJjQfPeVAoLhmW2Jmw7BjtV6He2T41ngWTvBKks/92Kbs0Th5DjTrlOtBEBT4G RsMkNOH+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/vv+YbfSHK1aPv0mw8dnmmdbm7XAN4 [file] u9LXz9KY2BKDXQF6GSXs== ID Date Data Source [id number] 08/12/2021 08:43:07 AM EDT [facility] Name Value Range Interpretation Code Description Data Zofia rce(s) Supporting Document(s) EKG [facility] TEJIOx0sJjAGLyVqj9LoXcAiPQLbJV9hkrb9O6T1vPGrY7VrjOJqf9esO3DsG4GpLVYsCPQDBH9ArXPb jb2 [file] 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+20BzpzGXVxx3FnXv1+p3BtcCG1ZqIJcYqlkzxWb [file] 0qnOW2MNBiDkgDMh2Xw3EcvsG0keYwClu5YXL3YpAxZB3E ID Date Data Source [id number] 08/12/2021 08:06:19 AM EDT [facility] Name Value Range Interpretation Code Description Data Zofia rce(s) Supporting Document(s) EKG [facility] KZWKYx0lZoPNFuHos7KkCzLtVKWmVG1binv5U2K2cAAjM3YacTOfm2cnT0RmM8WfUQFoEZECMH5HwLHm jb2 [file] SsmYjWnQ64svACE/Eag1y7v4xRhxnN8gvp7VEqxOY1jb+AUnjQdE8sn3iv0eZ9+Jose Luis+YsF8ano2XKLu+ [file] I5pD+NYxafQs4pvDf/transmission tester/81//69z/0BqeZ3v/59//5 53/87/Y///n3//3nP/79r03/+8/1f/7rX/uJy9+h9ORf2UIVVM82Xg/+/mQ6gW2ROxI7e2axbu35LDZ3 iRIwr4X0ju4slL+1J2ydaZ/6bBH+0WfQB+omT47UfV9Gcdw+6RHe/O2p2Pqle/55Ubl3A3i972tVZ3pC 8K+/rhZnw58Up/7+lr8d/yNACjpUDa16O4iKn1JV+q +/q4InjeJoP02N//XXR+V77hu59U7iEEz7711HmuE/oYmEn9EpoC/0tcM/HAmDT2hTnkJH4X4/Z1gb+W QTb1TDxCkup5pYfz7G88zo87/8zHY6U50qiVGvBXyMP228AT/oGml+/e5oHL2451L5Z5++6v/Mdff34d Du/qbr2K/Ze8t6xfet7Eb6xzzDzCk3hNx3JjzlUd8D oKC57MoeEqfWVue1uAc7XsyzupKiuA/fDO/vG2NM9/sPRIu0VAtJwE/noO/x/KX99bRZfLSRml+2568H VkPtbNf4JCbGbg/yeevhyDSk1kZ3/E3PoXv+TjzP95Swnyxeviwux/5+7b78u89yd8Ni0OZzRcn18kP6 3jlwV7oIQxiEPhNi/j6z3usGZutGmb0a57a2A4Y+6+ +ch0Fck6gIVC+EQV+gr6L/DzHf77jk0GQ61+lpV6GbCgypGjSG7Y/GA2GITIE64kbkR+kddK/l1IN16q s6vq+vav/5WjCHo5BpidVmm3U/R7ZTYwBTwx/Drs11sQ6FB6WZr4thLUr66T+cKGeBju+40G4Ema/C9/ 2Bs5t+5exRsKTv8q2dlsQA4Pz7vpB645y7824T50dU 9tcfkIaq3HxpQ+b3KFawcd3iCAC3epa+PsB09KV89Ez/F1mg2saafg1J5RAV8Xbw4oIslt/j5/cbH8Jo pyO9I/7UdlF9629h/TDk0De+yvTtq/P88Tbbf8QDqA8Csyt6Z98bKE21v93DbBlF8F2sPTs5MOMgV85Y /kp9SHcL8f+jH2Otfx1Gcwv096Y8Ntksk2g6z+Orkx y44rlwnNKfb03vUS/vK/i+G1+spg6z3ebG4LynHa1ynKGqYMP2j76h23z1O+Pmn7GS3VZvoWqKp01ha3 dTat4ewUJoo5/Rl47+dvS3O+cNb63Yyt/b0d+O/ir6q+vrgmgB5iCJC7XZ56Kf94uH3KChVEXm6RFl/9 2ILM2M73g7X8Qb3Wl3dl0Ypedhedyl9tsi9/sdxynT vip/46vMG/oClx10DVRYpPTOytm46+fONIkW4iiYeKh7+Ub+j+zXG/gDqk6kSAjtifxw+t3fLLP+jyTw JiVe6w5/Qtu0Ns8c+O6SftybUbGslI/+dbzfWbqr1IPyh2+zNWz8VysBQWzPZe2b/OHu/egE2Yuul/Dk euYgUQ2Qq7ms/BrEq6Ab/q1uo7IajJz4KKHd5SMZj1 BXluEfPbSTG1+JOh6D9onz8SruHnEt3i/xVTzOU26sucV5m7rKE0Yu+RwqtwCzD0xw1/29CtRO4o/+Rn erx2jy1vWMY5Qt1ZU62Wr5a7Z+Su3Y7vE0uz5YBWVfTI0xgwFW9Y0/zX5/kf+M+/pZHxa6xM/9XbEG/v EZvNUXaknrG9Rn2U3kPe2aj89c5J5o6Y/YdvofvjKJ Wakm9mVe1r6z2Wav3Yydltgt9g/vHj60cYXhC38BWc7Og1Lfa74z7xp7qt6bkwXa6ZwZ0+uvZpn7+8a8 SkiWzm5LVbEnIhMyxhYk0gO/94osVAmZCWWK4ItQ+N32M5febxu/5rGAl7ta+fRrM7gwnd79Ti5g8xw+ 6hyrS52w1ioBKhf6F1Mb2RH7Yz4Ik1d71c4+F3qr9b k3Pe779T1bBYU+3A4qCT3j6Q1Dr2rwzXr8ios/7aG/OuGSc+fgPjteM4ID8Auzta/bbycqDHoDffdXI1 y41D22kcChg6jEQkSr8y8mIwhzwE0LBgIX+oH0A+mf0L9j282j9fYKO826l8uEWJTc0SlDuWetDcKY3c 6E7exZ+28L1vu1C3uz3kCu/XfPtf0+Iuiqtj9e9Dp6 WhEx19286gn3Mot95vb2UmJBa0co3DzEH/7LAgXG4C0b/cLpUQh3km4s7eL0yhYsgLcwOhwnZ4fvLTlH +u6vR/no860d0lyQ9ZsmmwWoDW77ikv8nf+Vvymg2X5DMz/5iJ8N6Ny+R9KJ3N8+bb9/CV1tbe1r5C12 ra/LsIAe+ro9Nja+umE7er/78pNHI2jOe24vQeo9hb 6Prj8KY9jKCjw4ImhfJXJq/A0Q77ek6Nk0Y3l1VkozgDOB1qu+mfNaH60m5wAkHA/+rlmKzkpgP9ths6 oRh05mZw7kanA0AmFHpj7Sfxz+soHZCmSB6rd2PsXv+0FK4jH1n9hxqEx+lassiter++3FXyDebjifVdBp4Bjd h+0/X7KwC8xwE+0XDGufca/och3cKuVpTgUi1Be/x1 tC4wLZ08Fwe+yrnvhZ+7Y70K/mNFTe09Tcle845md86R0ol4Ek+7ny/yfWb1YszSvMhIad/T4s2u7C97 q/guob+Q6jK8foC5AoCUesudmQnVXNd/zgQtkcx3Ikk/alXOEqSXan/bz4Ngcyw2THreWoq6ywHQ2UvG f2E/Wo56J+rW2JUfYHQqCNi862iyawr82Pzy8R/9BP UL9Y2wP5IIt/uWzJiUdpUcbdY9jtXLyofiNUXp49ki8SjLVejep8hgxdoV20Au+InIJkpT1w7+0cBXGV nZQztO4LeJV4VqhZeHKYj8ta5vz+9i3FruC19H/S53OoQPhDDLAX/VnsBXGUZ/Ap3C1NohCZMZmRg6FO P5SmI27DBfVJRZklS2HanMHFqVty39wj3moODKgxRL /icv5eO5KvSi3D/Xkn/Bg0Y8t1TMF7d53kKwawXZfjN/P68pUe7slonquG61wv/7LUGFQUd/S1014mUV +wlYqlK4rab24vaK9/vtbv8pNHt+FwfrfG8ctn/KNPi+IjPX97Y2G2Bt9B5G+Yb+Gvpr6G/excC9zLzW /WH4V8G9ZpZJ26Xz89Splwsv5NJaGuX21DcNSd4Fl7 L9gsHq82V7UpaxPS5F+jswnge+70B/B/j0RI0MavHuR/orHfi+S129ZHaYZi2yk8R6V4ticw906W/H93 H050Zhx/21uvAVcgJG9n88T1gqY+hXL3laQj7LLe800g30klk75PB/qhfeUK/4Oo95UbJmBYOiBzw9Oq GJ/Nn2Opv3F+ArDXy1/w33tf/EfvvWf+LGfek/z9b3 nf/EmfvK/o1yZQtzSanjUltzZMEdQeV8pdRHQ5Rk/3Ca7FBe82Q2+5fgpF/1P7h/AxKvboif+Hb/BuQ/ rK76/9XAVxvza+TcDIJHkdT7fxrlBgQG86O9NyHqrIme+Cq+29D0NGzJ5pGpEHc9Jknbn/7Kvjr/tTgf QUf8f1Twe24/7avzUMvzwaDX+YLhfNC+Ol+na29TKI xW1gN3vK31Azmsy+6gT5Q/XE5Mz2m5lO28esH37Cs38VR+rSPlkgj3T46c3MS+xkoqtlxs2fX3CH/71n 7+Z+1L+/mPtu/s57/kvrL/36XqKc0Xw5tr+uqcB2t30FNvQTonIqsy1qYB1ni7TiNxH83wO0E8+FeOrx 3e+dq9MpDJ/vbQUzz0meeiOhLIf+P+2O0YEsKovFr/ FX2M+3y29pL3/rupZ4Q4ywd/XRD2wEtp/KP6qrXZM0qE/6AFvloZvvPIoL+xUwfkWycy4znYzy3MEx/7 OgVNB8nzLsrAW8/6dIBujRsrxf68FS+zQ3Dotg+yt95leKd11eE+j0zr/Db06hmYLc1oJI7TJ6AwtlSW lsAk78EvyC6Ufa1XQOTN4qM5baHaC/UXZ2MRwEuHrB eZfaDj+wa+anAawzpCb1iikt+J11GM47Ak0hkQ4X99d3z5JIskjGfuR37nubr41gH47Bi1/nhL0wnr+O qGiz6+Qd4mY2rblzJ+tC/X18Svgi2/+4Y19qg6Oe2S54W2377f/oYN9Do/3xmsRrx1a+9bP2EbSs7J+n L11T3YHiCj+is75oO2EajT03NI6yn4mnbvX+hT37Vv 0KdedF+gP+utx/1TIJm1I9bjx4eFxV+zM09aytn/9Jlb61U+7IWb9bseR4y63d/ua/Hrr6j75tJuxu/N n7yz7k/uK/UrS4862cTCwO/M3/Xsf4houc3g0b03wcLI3KxiVge+JZW49rsfiJZNCwT04Hi8npnVaaLl 90Nqh4d7qgjs/dbHxtjb+Ezw6awtfl9o7lIFO7U1tf D04uEQda5Iu43sqftpy16dd7qg4z5HCmfrfPvHham+vPFVymShvxtfnfD+olxB6R5zh2+JA89jngeiI0 HdbZ4liZ/C57ja9+Dzjuu+Bp/abdoul+GF63qxrWe69/byg70s0+Bz/g9t8FLIRSxq/v6+w373a/99mqoG1 cJA4OawF/Oh1Hsds6Ls+15g0r4nDegi4yQ69lwANv6 J3p4mlETJHnT9UlUP4Ij1chLX+qC4Vxb7jG92rkK/ze7O6IhAb5Ze1kHC6E2cx8Nm/2vMD9SAXdlXanZ dK32S+1HI+63RzsF/RX0N+63Z3pH+NFbvPmTRk1ONnzQI7aRk5iduc2y76ry+/ofc3vHotXsXDoPnmSJ 5ql8kwW+gsBkx0lTBw4bRdc5muLjG6Zu2NxrIUGsuX XSmrg2P/py9sGmSUi84xN6ZbDE+zJVollVH2EH4dlE4KKDlI3Vw55nJE9/prYM1RZdU0WZ9u2zg6L/Vu e/hzhCKxb8PWlLThn+dw0aD77vTds9snTVt3jZA+80fMkassaGdl83SFs8A5FZDmuR/S7W3M0A7J16k3 ELJmxGhs4lPp86xsRh2BUH/fqk5G9BDn85A6h/PMZA hqsTXK5Pia+YoE+0c6E9+N3g30qX14tlRXclDba7nw/j+5nIgXN7puxZ+Vb98vo/Gl765+Nhzm3voCh4 cdBw0uf+Uf7/p+huwOAhhv5km4J5ZqCHTjRSNv9GX140cLFBxvl6yX35SZm6QoBFSQX1T1DP4SvO2g24 hp33b3C/u/DJtTvy1//y8lE4N6HE3432iNp/cG1DOu kbTvrl735Q6cH/79ob+lGjtuzbef9jzC4AcDJoHLqDO18lhz8N/2oF+hsT+Ilgd8la4q1iPBAN+YuuwP JC6o1PyS7ShZ3C+6Er6v/Xv1qv/Kv/Qf/q++tf/Q/6V/u/rv3BzF//+/7VeuVfrVf+0knf0W955O+69g fEKXz0eH/+x2035nfzIgilc252/c0y2tIdjt5/I5d9 da/m2m5k9D23gP27Q8kw2b37J14Jo5C/720gfSL/LS1R2BBl0X5B8yJWlyQ/o/891Mmx6mZRt6j7zRa0 zP71tvWlh/DZo51jn2anN9bTK17je++Rdzxf+F95r++vw//Bt79Ywl2X92S/0F39P8j1YObe2e/2Xv51 7rCjdf1DLS6mtExSr6jkYf+o/BTHmbV4iq3Ma4KiGH 4WpjzPAhVD3vw1zxo/tfnOpgB15P1Su3jxVb0pb6Koo6RhR/+rruvzfM//czb86RxIqb2bNTE1/4Oa5z /7yj7V/7OvEi/5i07pMqwEw0c2s28eg4oBld/sqwMQnuvnv+xr1XI25/M/lCY1694//g5d7bydT0FZcI 0sGAtwo6Stbn+VnpfOD+enWdxddDU3Uqdg+Vrt/7rV /sEc8CCX46Bs8z77j8sv1i/h6d+ua/+rGOxjMD3ho4gb/o9c+LJL2cbK+Ee8pq6FSj7u1Y/kq+xnl32l uL4og2n+Ca85ifm5Q/gy1G+476rvguyrvHbkd+OKh2IiyLzA/S/3DiaSVj02+m5fU5uAFe/XO/LX/pH7 QPpAev3/uuyrzFP/gw7/K5f/1g8n31dt+R3phU+663 g90fKRd+tK39+Ky1eKi0+8v8e+kxoQAyh74BpX/fS9mqosiiLAD05fpwSuuD1NLhrTvL+ob5D2B/Vt0v 8pbAT7UU9ds77wml3Fg554gV+o+rU/yMd77omsQ5n7hD/1sa/l0nqolS5LR9eBHksVg4c6dMulLor0En VIFT6vH6G4+Yv6sa+Oj4zug3t02kzdK6yki/jV/up8 9xZ+rfwudY4zmJ49mpi44EG88z0+fa956m7Qey+d38e+Ul49d663ch5nmdfBH0Ez4lCduxskZ17yOj8C n6jdHtGg+5cK2U2DI6N56Mqyj/jxp8Ex2cE0Vqr62uojtb+fmfqhZ6cc4ye94Rs/sY99pe/Z1y3azF3i lzS029e82B+o5/Q3r09/EGkj0g379p1f5Gl81I3mwd 9pD73746+pa+QqkZ4f4Ij/3l3+sUrH8+95bm66G2eQl+lAZ93hhtKD65rc8+/u5f+8e/k/20Ey8X0N34 fy8a76gw4uWbn+3sKv1F/kQmujBq2eu8L3aJr8b+3Q59HwxG6wYnre2qSt1/7Rhn/1Nd54l1E+3/q54d ++R31/t/zbz/iko0Pk7/jTGuttlnA79yOhk9/f8S3/ dtU/J2Eo0HwGhRw511u45q+s55izf5lbAyurb5Q+gbOkV2jZc9L0WzsvZ/qr+Sws6xrFZ6/iRc0Z6jvR B/KP6pfh+Cl1K25veUcfcndoE3caD97m35yqpy76+lX/C7kopWp3ejg+ytb+gCXh3Oj8oCW6ztM2uvfj dXLq9X41Pv/fq/Z/9zKkL+QG03Q3tRdq/9N76eZ3Kn 68V+HtW/uDqtPxfL3+9zfsq+31v7+6A81fne4Dx6c5tOKjFR8069i/e8P/avtC/Y50R/4g5Mu6P+ovvH 4Xq6uWHO05xg/jQ5v21Dx4B02E8zNcbv+Gduadz4rwgD/93fW/sHfhGxv+4Bz08jmva2BAmx/3rv/BLf qT29iwGgjwUU53y/3TcyD8okD+hxz3PjOJr0Q1EMcQ 8hElwuSxVZcRLdi7d73GkteR3SS+zxv+7fEVHhtf+T/HV+nUQkwT3OP7OqhzhtZxWZoPwhAU5K0Pq5vi +Jacquelyn/TlqI9fISI+jPfvNn/y84gH8UO4pLc5gZ7Zrxx7F+HpMoi9tQrfyRuWG0gyeT5Yp8men74zZlGdt [file] g9AzJTRgUOXPTf0+JwN6OFG1eTDyQhd3SGK1AdnyEIRJIx== ID Date Data Source [id number] 08/12/2021 07:29:21 AM EDT [address] [id number] Name: JEAN-CLAUDE HARRISDOB: 1970Sex: MOrdering Provider: MARION PACKAuthorialcon Prov: MARION PACKReferrkeron Provider: Procedure Performed: / XR CHEST PORTABLEExam Date: 08/11/2021 22:52MRN: [id number] Number: [id number] Class: InpatientAccount #: [id number] for Exam: chest pain, SOB, hypoxiaTechnique: AP portable view obtained.Comparison: NoneFindings:Lungs: Lungs are clear without evidence of acute alveolar or acute interstitial disease.Pleura: There is no evidence of pleural effusion or pneumothorax.Mediastinum: Heart size is normal. No adenopathy is revealed.IMPRESSION: No acute abnormalityReport electronically signed by: DIANA JO On 08/12/2021 7:29 AMWorkstation ID: [id number] Name Value Range Interpretation Code Description Data Zofia rce(s) Supporting Document(s) ID Date Data Source [id number] 08/12/2021 06:26:29 AM EDT [facility] Name Value Range Interpretation Code Description Data Zofia rce(s) Supporting Document(s) TROPONIN I 20.00 ng/mL (<0.05) H [facility] Less than 0.05: Myocardial injury unlike lyGreater than or equal to 0.05: Highly suggestive of myocardial injuryCorrelation with rise and/or fall ofserial troponins, clinical symptomsand ECG changes is necessary.ALERTED CRITICAL RESULT MANNY ([id number]) [place] 08.12.2021 [place] [address] [place] [address] [place] [id number] ID Date Data Source [id number] 08/12/2021 06:26:29 AM EDT [facility] Name Value Range Interpretation Code Description Data Zofia rce(s) Supporting Document(s) SODIUM 142 mmol/L (136-145) [facility] POTASSIUM 3.3 mmol/L (3.6-5.2) L [facility] CHLORIDE 109 mmol/L (100-108) H [facility] CO2 25 mmol/L (22-31) [facility] ANION GAP 8 mmol/L (7-16) [facility] UREA NITROGEN 13 mg/dL (7-24) [facility] CREATININE 1.00 mg/dL (0.80-1.30) [facility] BUN/CREAT RATIO 13.0 RATIO (10.0-20.0) [facility] GLUCOSE 124 mg/dL (70-99) H [facility] CALCIUM 8.8 mg/dL (8.4-10.2) [facility] GFR >60 ml/min/1.73m2 (>59) [facility] GFR ( AMER) >60 ml/min/1.73m2 (>59) [facility] GFR INTERPRETATION [facility] --NORMAL KIDNEY FUNCTION OR MILD DISEASE - GFR >OR= 60CHRONIC KIDNEY DISEASE - GFR 15 - 59RENAL FAILURE - GFR <15 Est. GFR calculation based on the MDRDstudy equation, which assumes a steadystate for creatinine. Est. GFR should notbe used for medication dosing. ID Date Data Source [id number] 08/12/2021 06:09:47 AM EDT [facility] Name Value Range Interpretation Code Description [facility] Document(s) APTT 31.1 s (22.0-34.3) [facility] ID Date Data Source [id number] 08/12/2021 06:00:35 AM EDT [facility] Name Value Range Interpretation Code Description Data Zofia rce(s) Supporting Document(s) WBC 5.4 10*3/uL (4.1-11.0) [facility] [place] [facility] [place] RBC 4.53 10*6/uL (4.60-6.10) L [facility] [place] [facility] HGB 13.2 g/dL (13.5-18.0) L [facility] [place] [facility] [place] HCT 38.1 % (41.0-53.0) L [facility] [place] [facility] MCV 84.1 fL (80.0-95.0) [facility] [place] [facility] MCH 29.0 pg (27.0-32.0) [facility] [place] [facility] MCHC 34.5 g/dL (32.0-36.0) [facility] [place] [facility] RDW 14.2 % (10.5-14.5) [facility] [place] [facility] PLT 183 10*3/uL (150-450) [facility] [place] [facility] [place] MPV 8.2 fL (7.1-10.7) [facility] [place] [facility] ID Date Data Source [id number] 08/12/2021 03:57:13 AM EDT [facility] Name Value Range Interpretation Code Description Data Zofia rce(s) Supporting Document(s) TROPONIN I 21.10 ng/mL (<0.05) H [facility] [place] [facility] Less than 0.05: Myocardial injury unlike lyGreater than or equal to 0.05: Highly suggestive of myocardial injuryCorrelation with rise and/or fall ofserial troponins, clinical symptomsand ECG changes is necessary.ALERTED CRITICAL [place] [id number] [place] [id number] ON 08/12/21 AT 3:55 BY [id number] ID Date Data Source [id number] 08/12/2021 12:46:00 AM EDT [facility] Name Value Range Interpretation Code Description Data Zofia rce(s) Supporting Document(s) SARS coronavirus 2 RNA [Presence] in Res piratory specimen by JESÚS with probe detection NOT DETECTED [facility] This lab was reported by [facility] [place] [facility]. ID Date Data Source [id number] 08/12/2021 01:51:08 AM EDT [facility] [place] [facility] Name Value Range Interpretation Code Description Data Zofia rce(s) Supporting Document(s) AMPHETAMINES,URINE (NEG) [facility] BARBITURATES,URINE (NEG) [facility] BENZODIAZEPINE,URINE (NEG) [facility] CANNABINOIDS,URINE (NEG) [facility] COCAINE,URINE (NEG) [facility] [place] [facility] OPIATES,URINE (NEG) [facility] [place] [facility] NOTE: Oxycodone is not sufficientlydetec seth by this screening assay. A moresensitive assay is available upon request. PHENCYCLIDINE,URINE (NEG) [facility] PLEASE NOTE: [facility] [place] [facility] STR[facility] ARE REPORTED POSITIVE WHEN [...] FORMONITORING MEDICATION COMPLIANCE. ID Date Data Source [id number] 08/12/2021 01:41:46 AM EDT [facility] [place] [facility] Name Value Range Interpretation Code Description Data Zofia rce(s) Supporting Document(s) SPECIMEN DESCRIPTION [facility] INFLUENZA A (NEG) [facility] [place] INFLUENZA B (NEG) [facility] [place] RSV (NEG) [facility] [place] [facility] COMMENT [facility] [place] [facility] THE [place] FDA HAS MADE THIS TEST AVAILABL EUNDER AN EMERGENCY USE AUTHORIZATION(EUA) FOR THE DETECTION AND/OR DIAGNOSISOF THE VIRUS THAT CAUSES COVID-19.PERFORMED AT [address] [place] [id number] COVID19 RESULT (NDET) [facility] [place] [facility] THIS ASSAY AMPLIFIES AND DETECTSTHE TARG ET RNA USING REAL-TIME PCR.TESTING PERFORMED ON [employer] GENEXPERTNEGATIVE 2019_NCOV RT-PCR RESULTS DONOT PRECLUDE 2019_NCOV INFECTION ANDSHOULD NOT BE USED THE SOLE BASISFOR PATIENT MANAGEMENT DECISIONS. FIRST TEST [facility] [place] [facility] SYMPTOMATIC [facility] [place] [facility] [place] DATE OF SYMPT ONSET [facility] HOSPITALIZED [facility] [place] [facility] [place] STR[facility] ICU [facility] [place] [facility] CONGREGATE CARE SET [facility] [place] [facility] DAVID ID Date Data Source [id number] 08/12/2021 01:27:00 AM EDT [facility] [place] [facility] DAVID Name Value Range Interpretation Code Description Data Zofia rce(s) Supporting Document(s) URN CULTURE HOLD [facility] [place] [facility] FOR ADD ON CULTURE ID Date Data Source [id number] 08/13/2021 09:26:07 AM EDT [facility] [place] [facility] DAVID Name Value Range Interpretation Code Description Data Zofia rce(s) Supporting Document(s) CHOLESTEROL @ 257 mg/dL (0-200) H [facility] [place] [facility] [place] TRIGLYCERIDE @ 127 mg/dL (30-200) [facility] [place] [facility] HDL CHOLESTEROL @ 52 mg/dL (>40) [facility] [place] [facility] PER NCEP ATP III GUIDELINES:RESULTS LOWE R THAN 40 MG/DL ARE SUGGESTIVEOF INCREASED RISK FOR CORONARY ARTERYDISEASE. RESULTS > OR = TO 60 MG/DL ARECONSIDERED A NEGATIVE RISK FACTOR. CHOL/HDL RATIO 4.9 RATIO [facility] [place] [facility] INTERPRETATION OF CHOL-HDL RATIO CHD RISK FEMALE MALEVERY HIGH >8.3 >14.3HIGH 5.6- 8.3 6.7- 14.3AVERAGE 3.7- 5.6 4.0- 6.7BELOW AVERAGE 2.5- 3.7 2.7- 4.0PROTECTED <2.5 <2.7 LDL CHOL (CALC) 180 mg/dL (<130) H [facility] [place] [facility] [place] PER NCEP ATP III GUIDELINES: OPTIMAL < 100 NEAR OPTIMAL 100 - 129BORDERLINE HIGH 130 - 159 HIGH 160 - 189 VERY HIGH > 189 ID Date Data Source [id number] 08/12/2021 12:35:36 AM EDT [facility] [place] [facility] Name Value Range Interpretation Code Description Data Zofia rce(s) Supporting Document(s) PT 10.6 s (9.2-11.9) [facility] [place] [facility] INR 1.01 [facility] [place] [facility] SUGGESTED THERAPEUTIC RANGES USING INR F ORSTABILIZED ANTICOAGULATED PATIENTS:STANDARD DOSE THERAPY INR 2.0-3.0 DVT, PE, PREVENT DVT OR EMBOLISMHIGH DOSE THERAPY INR 2.5-3.5 PREVENT EMBOLISM FROM MECHANICAL HEART VALVE ID Date Data Source [id number] 08/12/2021 12:25:01 AM EDT [facility] [place] [facility] Name Value Range Interpretation Code Description Data Zofia rce(s) Supporting Document(s) TSH,ULTRASENSITIVE @ 1.642 mIU/L (0.360-4.170) [facility] [place] [facility] PERFORMED AT [address] [place] [address] [place] [address] ID Date Data Source [id number] 08/12/2021 12:25:01 AM EDT [facility] [place] [facility] Name Value Range Interpretation Code Description Data Zofia rce(s) Supporting Document(s) NT PRO BNP 20 pg/mL (0-125) [facility] [place] [facility] ID Date Data Source [id number] 08/12/2021 12:25:01 AM EDT [facility] [place] [facility] Name Value Range Interpretation Code Description Data Zofia rce(s) Supporting Document(s) TROPONIN I 21.70 ng/mL (<0.05) H [facility] [place] [facility] [place] Less than 0.05: Myocardial injury unlike lyGreater than or equal to 0.05: Highly suggestive of myocardial injuryCorrelation with rise and/or fall ofserial troponins, clinical symptomsand ECG changes is necessary.ALERTED CRITICAL [place] [id number] [place] [id number] ON 08/12/21 AT 00:25 BY [id number] ID Date Data Source [id number] 08/12/2021 12:25:01 AM EDT [facility] [place] [facility] Name Value Range Interpretation Code Description Data Zofia rce(s) Supporting Document(s) SODIUM 142 mmol/L (136-145) [facility] [place] [facility] POTASSIUM 3.8 mmol/L (3.6-5.2) [facility] [place] [facility] CHLORIDE 107 mmol/L (100-108) [facility] [place] [facility] CO2 24 mmol/L (22-31) [facility] [place] [facility] ANION GAP 11 mmol/L (7-16) [facility] [place] [facility] UREA NITROGEN 12 mg/dL (7-24) [facility] [place] [facility] CREATININE 0.92 mg/dL (0.80-1.30) [facility] [place] [facility] BUN/CREAT RATIO 13.0 RATIO (10.0-20.0) [facility] GLUCOSE 98 mg/dL (70-99) [facility] [place] [facility] CALCIUM 9.2 mg/dL (8.4-10.2) [facility] [place] [facility] TOTAL PROTEIN 7.6 g/dL (6.4-8.2) [facility] [place] [facility] ALBUMIN 4.1 g/dL (3.5-4.6) [facility] [place] [facility] GLOBULIN 3.5 g/dL (2.7-4.3) [facility] [place] [facility] ALB/GLOB RATIO 1.2 RATIO [facility] [place] [facility] ALKALINE PHOSPHATASE 63 U/L (45-117) [facility] BILIRUBIN,TOTAL 0.4 mg/dL (0.0-1.0) [facility] [place] [facility] PLEASE NOTE:Total bilirubin results may be falselyelevated in patients taking Eltrombopag. AST (SGOT) 52 U/L (11-39) H [facility] [place] [facility] ALT (SGPT) 45 U/L (12-78) [facility] [place] [facility] GFR >60 ml/min/1.73m2 (>59) [facility] [place] [facility] GFR ( AMER) >60 ml/min/1.73m2 (>59) [facility] [place] [facility] GFR INTERPRETATION [facility] --NORMAL KIDNEY FUNCTION OR MILD DISEASE - GFR >OR= 60CHRONIC KIDNEY DISEASE - GFR 15 - 59RENAL FAILURE - GFR <15 Est. GFR calculation based on the MDRDstudy equation, which assumes a steadystate for creatinine. Est. GFR should notbe used for medication dosing. ID Date Data Source [id number] 08/12/2021 12:23:56 AM EDT [facility] [place] [facility] Name Value Range Interpretation Code Description Data Zofia rce(s) Supporting Document(s) ETHANOL <3 mg/dL (0-3) [facility] [place] [facility] ID Date Data Source [id number] 08/12/2021 12:18:55 AM EDT [facility] [place] [facility] Name Value Range Interpretation Code Description Data Zofia rce(s) Supporting Document(s) MAGNESIUM 2.2 mg/dL (1.7-2.4) [facility] [place] [facility] ID Date Data Source [id number] 08/12/2021 12:16:22 AM EDT [facility] [place] [facility] Name Value Range Interpretation Code Description Data Zofia rce(s) Supporting Document(s) HEMOGLOBIN A1C @ 5.6 % (4.0-6.0) [facility] [place] [facility] Performed using [employer] y.Care must be taken when interpreting [id number] in patients with a hemoglobin variantor decreased erythrocyte lifespan. Values 5.7 - 6.4% suggest prediabetes.Values >=6.5% are diagnostic for diabetes.REFERENCE: DIABETES CARE 2018: 41(S13-S27).PERFORMED AT [address] [place] [address] EST AVERAGE GLUCOSE 114 mg/dL [facility] ID Date Data Source [id number] 08/11/2021 11:45:06 PM EDT [facility] [place] [facility] Name Value Range Interpretation Code Description Data Zofia rce(s) Supporting Document(s) APTT 31.5 s (22.0-34.3) [facility] [place] [facility] ID Date Data Source [id number] 08/11/2021 11:34:34 PM EDT [facility] [place] [facility] Name Value Range Interpretation Code Description Data Zofia rce(s) Supporting Document(s) WBC 6.7 10*3/uL (4.1-11.0) [facility] [place] [facility] [place] RBC 5.09 10*6/uL (4.60-6.10) [facility] [place] [facility] HGB 14.6 g/dL (13.5-18.0) [facility] [place] [facility] HCT 42.6 % (41.0-53.0) [facility] [place] [facility] MCV 83.7 fL (80.0-95.0) [facility] [place] [facility] MCH 28.8 pg (27.0-32.0) [facility] [place] [facility] MCHC 34.4 g/dL (32.0-36.0) [facility] [place] [facility] RDW 14.0 % (10.5-14.5) [facility] [place] [facility] PLT 209 10*3/uL (150-450) [facility] [place] [facility] MPV 8.1 fL (7.1-10.7) [facility] [place] [facility] NEUT % 59.6 % (35.0-75.0) [facility] [place] [facility] LYMPH % 31.0 % (16.0-52.0) [facility] [place] [facility] MONO % 7.5 % (0.0-8.0) [facility] [place] [facility] EOS % 1.3 % (0.0-5.0) [facility] [place] [facility] BASO % 0.6 % (0.0-4.0) [facility] [place] [facility] NEUT # 4.0 10*3/uL (1.8-7.7) [facility] [place] [facility] LYMPH # 2.1 10*3/uL (1.2-4.8) [facility] [place] [facility] MONO # 0.5 10*3/uL (0.0-0.8) [facility] [place] [facility] Eosinophils [#/volume] in Blood by Automated count 0.1 10*3/uL (0.0-0 .5) [facility] [place] [facility] BASO # 0.0 10*3/uL (0.0-0.2) [facility] [place] [facility] ID Date Data Source [id number] 08/11/2021 06:10:00 PM EDT [facility] Name Value Range Interpretation Code Description Data Zofia rce(s) Supporting Document(s) SARS coronavirus 2 RNA [Presence] in Res piratory specimen by JESÚS with probe detection NEGATIVE [facility] This lab was ordered by [facility] a nd reported by [facility]. ID Date Data Source [id number] 03/07/2021 12:00:00 AM EDT [facility] Name Value Range Interpretation Code Description Data Zofia rce(s) Supporting Document(s) SARS-CoV2 Rapid Antigen Negative [facility] This lab was reported by Tana Conte. Procedure Social History Code Duration Value Status Description Data Source(s ) Alcohol intake 08/13/2021 12:00:00 AM EDT Current drinker of al cohol (finding) completed Current drinker of alcohol (finding) [facility] Tobacco use and exposure 08/11/2021 12:00:00 AM EDT Never used co mpleted Never used [facility] Smoking 08/11/2021 12:00:00 AM EDT Current every day smoker co mpleted Current every day smoker [facility] Vital Signs ID Date Data Source UNK Name Value Range Interpretation Code Description Data Source(s) Heart rate 65 /min 65 /min [facility] Systolic blood pressure 137 mm[Hg] 137 mm[Hg] [facility] Diastolic blood pressure 82 mm[Hg] 82 mm[Hg] [facility] Body temperature 36.89 Kimberly 36.89 Kimberly [facility] Respiratory rate 18 /min 18 /min [facility] Oxygen saturation in Arterial blood by Pulse oximetry 100 % 100 % [facility] Body height 188 cm 188 cm [facility] Body weight 110.8 kg 110.8 kg [facility] Body mass index (BMI) [Ratio] 31.36 kg/m2 31.36 kg/m2 [facility] Systolic blood pressure 129 mm[Hg] 129 mm[Hg] [facility] ([facility]) Diastolic blood pressure 82 mm[Hg] 82 mm[Hg] [facility] ([facility]) Heart rate 76 /min 76 /min [facility] ([facility]) Body height 75 [in_i] 75 [in_i] [facility] ([facility]) 6'3" Body weight 245.00 [lb_av] 245.00 [lb_av] [facility] T ([facility]) Body mass index (BMI) [Ratio] 30.6 kg/m2 30.6 k g/m2 [facility] ([facility]) [place] body weight 196 [lb_av] 196 [lb_av] [facility] T ([facility]) Body weight 111.132 kg 111.132 kg [facility] ([facility]) Body surface area Derived from formula 2.39 m2 2.39 m2 [facility] ([facility]) Systolic blood pressure 125 mm[Hg] 125 mm[Hg] [facility] ([facility]) Diastolic blood pressure 86 mm[Hg] 86 mm[Hg] [facility] ([facility], [facility]) Heart rate 80 /min 80 /min [facility] ([facility] [place], [facility]) Respiratory rate 16 /min 16 /min [facility] ( [facility], [facility]) Oxygen saturation in Arterial blood by Pulse oximetry 98 % 98 % [facility]) Body temperature 98.7 [degF] 98.7 [degF] [facility] ([facility], [facility]) Body weight 250.00 [lb_av] 250.00 [lb_av] [facility] T ([facility], [facility]) Body height 74 [in_i] 74 [in_i] [facility] ([facility] [place], [facility]) 6'2" Body mass index (BMI) [Ratio] 32.1 kg/m2 32.1 k g/m2 [facility] ([facility]) Patient Treatment Plan of Care Planned Activity Planned Date Details Description Data Source (s) clopidogrel 75 MG Oral Tablet 08/14/2021 12:00:00 AM EDT [facility] atorvastatin 80 MG Oral Tablet 08/14/2021 12:00:00 AM EDT [facility] Aspirin 81 MG Chewable Tablet 08/14/2021 12:00:00 AM EDT [facility] Nitroglycerin 0.4 MG Sublingual Tablet 08/13/2021 12:00:00 AM EDT [facility] Metoprolol Tartrate 25 MG Oral Tablet 08/13/2021 12:00:00 AM EDT [facility] Acetaminophen 325 MG Oral Tablet 08/13/2021 12:00:00 AM EDT [facility] normal saline flush 0.9 % injection 3 mL 08/12/2021 06:00:00 AM EDT [facility] normal saline flush 0.9 % injection 3 mL 08/12/2021 06:00:00 AM EDT [facility] sodium chloride 0.9% (NS) infusion 08/12/2021 04:00:00 AM EDT [facility] Acetaminophen 325 MG Oral Tablet 08/11/2021 11:07:22 PM EDT [facility] ondansetron (ZOFRAN) injection 4 mg 08/11/2021 11:07:07 PM EDT [facility] 2 ML Metoclopramide 5 MG/ML Prefilled Syringe 08/11/2021 11:07:07 P M EDT [facility] 1 ML Lorazepam 2 MG/ML Injection 08/11/2021 10:48:01 PM EDT [facility]
[2021-11-05 07:42] LABS: BASO # 0.1 10^3/uL (0.0-0.2); BASO % 1.4 % (0.0-1.0); EOS # 0.2 10^3/uL (0.0-0.5); EOS % 4.5 % (0.0-3.0); HEMATOCRIT 43.2 % (42.0-52.0); HEMOGLOBIN 14.2 g/dl (13.5-17.5); LYMPH # 1.9 10^3/uL (1.5-5.0); LYMPH % 39.5 % (24.0-44.0); MEAN CORPUSCULAR HEMOGLOBIN 28.1 pg (27.0-33.0); MEAN CORPUSCULAR HGB CONC 32.9 g/dl (32.0-36.5); MEAN CORPUSCULAR VOLUME 85.4 fl (80.0-96.0); MONO # 0.4 10^3/uL (0.0-0.8); MONO % 7.8 % (2.0-8.0); NEUTROPHILS # 2.3 10^3/uL (1.5-8.5); NEUTROPHILS % 46.8 % (36.0-66.0); PLATELET COUNT, AUTOMATED 229 10^3/uL (150-450); RED BLOOD COUNT 5.06 10^6/uL (4.30-6.10); WHITE BLOOD COUNT 4.9 10^3/uL (4.0-10.0)
[2021-11-05 07:53] LABS: INR 1.01; PARTIAL THROMBOPLASTIN TIME 29.1 SECONDS (25.9-37.0); PROTHROMBIN TIME 13.7 SECONDS (12.7-14.5)
--- NOTE | 2021-11-05 08:18 | REP ---
INDICATION: CHEST PAIN COMPARISON: None. TECHNIQUE: Portable AP view of the chest FINDINGS: The mediastinum and cardiac silhouette are within normal limits for portable technique. The lung ly are clear without acute consolidation, effusion, or pneumothorax. Skeletal structures are intact. IMPRESSION: No acute cardiopulmonary process appreciated. <Electronically signed by Rafiq Tapia > 11/05/21 0812
[2021-11-05 08:24] LABS: ALBUMIN 3.7 GM/DL (3.2-5.2); ALT/SGPT 97 U/L (12-78); BILIRUBIN,DIRECT 0.2 MG/DL (0.0-0.2); BILIRUBIN,TOTAL 0.6 MG/DL (0.2-1.0); BLOOD UREA NITROGEN 12 MG/DL (7-18); CARBON DIOXIDE LEVEL 27 MEQ/L (21-32); CHLORIDE LEVEL 109 MEQ/L (98-107); CREATININE FOR GFR 1.02 MG/DL (0.70-1.30); GLOMERULAR FILTRATION RATE > 60.0 (>60); GLUCOSE, FASTING 129 MG/DL (70-100); LIPASE 154 U/L (73-393); POTASSIUM SERUM 3.8 MEQ/L (3.5-5.1); SODIUM LEVEL 142 MEQ/L (136-145); TOTAL PROTEIN 7.2 GM/DL (6.4-8.2)
[2021-11-05 10:39] VITALS: BP 117/71
--- NOTE | 2021-11-07 10:10 | ECGEPIP ---
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
--- NOTE | 2021-11-07 10:10 | ECGEPIP ---
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
== END 2021-11-05 10:46 | disposition home or self-care (01) ==
LOC: M ED 06:39
DX: R07.89 Other chest pain (principal); I25.10 Atherosclerotic heart disease of native coronary artery without angina pectoris; I25.2 Old myocardial infarction; F41.9 Anxiety disorder, unspecified; F32.A Depression, unspecified; F17.200 Nicotine dependence, unspecified, uncomplicated; Z79.82 Long term (current) use of aspirin; Z79.899 Other long term (current) drug therapy

== ENCOUNTER 2022-08-23 11:24 | Emergency (ER) | payer OTHER ==
[~2022-08-23] VITALS: Ht 188 cm; Wt 115.7 kg
[~2022-08-23 11:24] MED LIST changes: +ASPI1CHW3 PO; +ATOR80TA59 PO; +METO1TAB87 PO; +NITR4TASL SL; +PLAV1TAB2 PO; +QC A650T3 PO
[2022-08-23 12:45] LABS: BASO # 0.1 10^3/uL (0.0-0.2); BASO % 1.4 % (0.0-1.0); EOS # 0.2 10^3/uL (0.0-0.5); EOS % 4.4 % (0.0-3.0); HEMOGLOBIN 14.1 g/dl (13.5-17.5); LYMPH # 1.9 10^3/uL (1.5-5.0); LYMPH % 38.3 % (24.0-44.0); MEAN CORPUSCULAR HEMOGLOBIN 28.7 pg (27.0-33.0); MEAN CORPUSCULAR HGB CONC 33.6 g/dl (32.0-36.5); MEAN CORPUSCULAR VOLUME 85.4 fl (80.0-96.0); MONO # 0.4 10^3/uL (0.0-0.8); MONO % 7.4 % (2.0-8.0); NEUTROPHILS # 2.4 10^3/uL (1.5-8.5); NEUTROPHILS % 48.3 % (36.0-66.0); PLATELET COUNT, AUTOMATED 217 10^3/uL (150-450); RED BLOOD COUNT 4.92 10^6/uL (4.30-6.10)
[2022-08-23 13:26] LABS: BLOOD UREA NITROGEN 15 MG/DL (7-18); CALCIUM LEVEL 9.3 MG/DL (8.5-10.1); CARBON DIOXIDE LEVEL 25 MEQ/L (21-32); CHLORIDE LEVEL 109 MEQ/L (98-107); CREATININE FOR GFR 0.79 MG/DL (0.70-1.30); GLOMERULAR FILTRATION RATE > 60.0 (>56); GLUCOSE, FASTING 104 MG/DL (70-100); POTASSIUM SERUM 4.7 MEQ/L (3.5-5.1); SODIUM LEVEL 137 MEQ/L (136-145)
[2022-08-23] MEDS ORDERED: ISOVUE-370 76% 100ML VIAL As Ordered ONE (13:40)
[2022-08-23 16:02] VITALS: BP 137/85
== END 2022-08-23 16:19 | disposition home or self-care (01) ==
LOC: M ED 11:24
DX: R42 Dizziness and giddiness (principal); I25.2 Old myocardial infarction; F17.200 Nicotine dependence, unspecified, uncomplicated; F41.9 Anxiety disorder, unspecified; Z86.79 Personal history of other diseases of the circulatory system; Z95.5 Presence of coronary angioplasty implant and graft
CPT/HCPCS: 36415; 70450; 70496; 70498; 71045; 80048; 84484; 85025; 93005; 93041; 94760; 99285; Q9967

== ENCOUNTER 2023-05-18 19:30 | Emergency (ER) | payer OTHER ==
[~2023-05-18] VITALS: Ht 188 cm; Wt 122.7 kg
[~2023-05-18 19:30] MED LIST changes: +ASPI-655 PO; -ASPI1CHW3 PO; +CLOP75TA99 PO; -PLAV1TAB2 PO
[2023-05-18] MEDS ORDERED: ZANA4CAP PO (19:36)
[2023-05-18] MEDS ORDERED: METHOCARBAMOL 1,000 MG/10 ML VIAL IV ONE (20:15)
[2023-05-18] MEDS ORDERED: KETOROLAC 30 MG/ML 1ML VIAL IV ONE (20:15)
[2023-05-18] MEDS ORDERED: methylPREDNISolone 125MG 2ML VIAL IV ONE (20:15)
[2023-05-18] MEDS ORDERED: MORPHINE 4 MG/ML 1ML VIAL IV ONE (22:05)
[2023-05-19] MEDS ORDERED: MORPHINE 4 MG/ML 1ML VIAL IV ONE (00:45)
[2023-05-19 02:34] VITALS: BP 138/71; TEMP 98.1; O2SAT 97
== END 2023-05-19 02:41 | disposition home or self-care (01) ==
LOC: M ED 19:30
DX: M54.50 Low back pain, unspecified (principal); I25.2 Old myocardial infarction; G47.30 Sleep apnea, unspecified; Z79.899 Other long term (current) drug therapy
CPT/HCPCS: 72148; 96374; 96375; 96376; 99284; J1885; J2800; J2930

== ENCOUNTER 2024-02-02 13:03 | Emergency (ER) | payer OTHER ==
[~2024-02-02] VITALS: Ht 188 cm; Wt 113.0 kg
[~2024-02-02 13:03] MED LIST changes: +ZANA4CAP PO
[2024-02-02 13:54] LABS: BASO % 0.9 % (0.0-1.0); EOS # 0.2 10^3/uL (0.0-0.5); EOS % 4.4 % (0.0-3.0); HEMATOCRIT 40.5 % (42.0-52.0); HEMOGLOBIN 13.7 g/dl (13.5-17.5); LYMPH # 1.8 10^3/uL (1.5-5.0); LYMPH % 42.2 % (24.0-44.0); MEAN CORPUSCULAR HEMOGLOBIN 29.1 pg (27.0-33.0); MEAN CORPUSCULAR HGB CONC 33.8 g/dl (32.0-36.5); MONO # 0.4 10^3/uL (0.0-0.8); MONO % 8.2 % (2.0-8.0); NEUTROPHILS # 1.9 10^3/uL (1.5-8.5); NEUTROPHILS % 44.3 % (36.0-66.0); PLATELET COUNT, AUTOMATED 211 10^3/uL (150-450); RED BLOOD COUNT 4.71 10^6/uL (4.30-6.10); WHITE BLOOD COUNT 4.3 10^3/uL (4.0-10.0)
[2024-02-02 14:05] LABS: INR 1.04; PROTHROMBIN TIME 13.3 SECONDS (12.5-14.5)
[2024-02-02 14:20] LABS: CK-MB VALUE MASS 2.5 NG/ML (<3.6)
[2024-02-02 14:21] LABS: LIPASE 33 U/L (12-53)
[2024-02-02 14:23] LABS: ALBUMIN 3.8 G/DL (3.2-5.2); ALKALINE PHOSPHATASE 63 U/L (46-116); ALT/SGPT 54 U/L (7.0-40); AST/SGOT 29 U/L (<34); BILIRUBIN,DIRECT 0.1 MG/DL (<0.4); BILIRUBIN,TOTAL 0.4 MG/DL (0.3-1.2); TOTAL PROTEIN 6.7 G/DL (5.7-8.2)
[2024-02-02 14:25] LABS: CPK CREATINE PHOSPHOKINASE 386 U/L (46-171); MB/CK RELATIVE INDEX 0.64 (< OR =4)
[2024-02-02 17:20] LABS: BLOOD UREA NITROGEN 9 MG/DL (9-23); CALCIUM LEVEL 8.7 MG/DL (8.5-10.1); CARBON DIOXIDE LEVEL 26 MMOL/L (20-31); CHLORIDE LEVEL 110 MMOL/L (98-107); CREATININE FOR GFR 0.84 MG/DL (0.70-1.30); GLOMERULAR FILTRATION RATE > 60.0 (>56); GLUCOSE, FASTING 101 MG/DL (60-100); POTASSIUM SERUM 4.6 MMOL/L (3.5-5.1); SODIUM LEVEL 141 MMOL/L (136-145)
[2024-02-02] MEDS: NS 1,000 ML IV ONE (17:24)
[2024-02-02 17:56] LABS: CK-MB VALUE MASS 2.5 NG/ML (<3.6)
[2024-02-02 18:01] LABS: MB/CK RELATIVE INDEX 0.65 (< OR =4)
[2024-02-02 19:34] VITALS: BP 117/82; TEMP 97.7; O2SAT 97
== END 2024-02-02 19:36 | disposition home or self-care (01) ==
LOC: M ED 13:03
DX: R07.9 Chest pain, unspecified (principal); R74.8 Abnormal levels of other serum enzymes; I25.2 Old myocardial infarction; F41.9 Anxiety disorder, unspecified; F32.A Depression, unspecified; R51.9 Headache, unspecified

== ENCOUNTER → 2024-02-13 | Outpatient (CLI) | payer OTHER | LOC: M RAD 08:41 | PROVIDERS: ATTEND Family Medicine | DX: Z12.2 Encounter for screening for malignant neoplasm of respiratory organs (principal); F17.210 Nicotine dependence, cigarettes, uncomplicated ==

== ENCOUNTER 2024-10-06 09:34 | Observation (INO) | payer OTHER ==
[2024-10-06] VITALS (11 sets, daily range): BP systolic 118–155; BP diastolic 70–96; TEMP 97–97.4; O2SAT 97–99
[~2024-10-06] VITALS: Ht 188 cm; Wt 112.7 kg
[2024-10-06] MEDS: ENOXAPARIN 40MG/0.4ML SYRINGE (J1650 PER 10MG) SC SCH (09:00)
[~2024-10-06 09:34] MED LIST changes: +FLUO-365 PO; -FLUO20CA22 PO
[2024-10-06] MEDS ORDERED: ISOVUE-370 76% 100ML VIAL As Ordered ONE (10:00)
[2024-10-06 10:29] LABS: BASO # 0.1 10^3/uL (0.0-0.2); BASO % 1.1 % (0.0-1.0); EOS # 0.2 10^3/uL (0.0-0.5); EOS % 3.6 % (0.0-3.0); HEMATOCRIT 43.5 % (42.0-52.0); HEMOGLOBIN 14.8 g/dl (13.5-17.5); LYMPH % 42.1 % (24.0-44.0); MEAN CORPUSCULAR HEMOGLOBIN 29.4 pg (27.0-33.0); MEAN CORPUSCULAR VOLUME 86.5 fl (80.0-96.0); MONO # 0.5 10^3/uL (0.0-0.8); PLATELET COUNT, AUTOMATED 221 10^3/uL (150-450); RED BLOOD COUNT 5.03 10^6/uL (4.30-6.10); WHITE BLOOD COUNT 4.7 10^3/uL (4.0-10.0)
[2024-10-06 10:43] LABS: INR 0.91; PARTIAL THROMBOPLASTIN TIME 26.7 SECONDS (24.8-34.2); PROTHROMBIN TIME 12.5 SECONDS (12.5-14.5)
[2024-10-06 11:00] LABS: ALKALINE PHOSPHATASE 65 U/L (40-129); ALT/SGPT 38 U/L (7.0-40); AST/SGOT 17 U/L (<34); BILIRUBIN,DIRECT 0.2 MG/DL (<0.4); BILIRUBIN,TOTAL 0.6 MG/DL (0.3-1.2); BLOOD UREA NITROGEN 15 MG/DL (9-23); CALCIUM LEVEL 10.1 MG/DL (8.5-10.1); CARBON DIOXIDE LEVEL 28 MMOL/L (20-31); CHLORIDE LEVEL 107 MMOL/L (98-107); CREATININE FOR GFR 0.87 MG/DL (0.70-1.30); GLOMERULAR FILTRATION RATE > 60.0 (>56); GLUCOSE, FASTING 110 MG/DL (60-100); POTASSIUM SERUM 4.2 MMOL/L (3.5-5.1); SODIUM LEVEL 141 MMOL/L (136-145); TOTAL PROTEIN 7.5 G/DL (5.7-8.2)
[2024-10-06] MEDS ORDERED: HOME MED LIST COMPLETE! XX SCH (11:00)
[2024-10-06 11:35] LABS: ERYTHROCYTE SEDIMENTATION RATE 10 mm/hr (0-20)
[2024-10-06 11:36] LABS: C REACTIVE PROTEIN QUANTITATIV < 0.40 MG/DL (<1.0)
[2024-10-06 11:37] LABS: CHOLESTEROL LEVEL 250 MG/DL (<200); CHOLESTEROL RISK RATIO 5.69 (<5); HDL CHOLESTEROL 43.9 MG/DL (>40); LDL CHOLESTEROL 174.7 MG/DL (<100); NON-HDL-C 206.1 MG/DL; TRIGLYCERIDES LEVEL 157 MG/DL (<150)
[2024-10-06] MEDS: CLOPIDOGREL 300 MG TAB (PLAVIX) PO STA (11:38)
[2024-10-06] MEDS: ASPIRIN 81MG CHEW TABLET PO ONE (11:38)
[2024-10-06] MEDS: ATORVASTATIN 20 MG TAB PO ONE (11:42)
[2024-10-06] MEDS ORDERED: LORazepam 2 MG TAB PO PRN (11:55)
[2024-10-06 13:32] LABS: INR 0.95; PARTIAL THROMBOPLASTIN TIME 27.9 SECONDS (24.8-34.2)
[2024-10-06 13:40] LABS: HEMOGLOBIN A1c 5.6 % (4.0-6.0)
[2024-10-06] MEDS: FOLIC ACID 1MG TAB PO SCH (15:19)
[2024-10-06] MEDS: MULTIVITAMINS/MINERALS THERAP 1 TAB PO SCH (15:19)
[2024-10-06] MEDS: THIAMINE 100 MG TAB PO SCH (15:19)
[2024-10-06] MEDS: PANTOPRAZOLE 40MG TAB (PROTONIX) PO SCH (15:19)
[2024-10-07] VITALS: BP 119/70; TEMP 97; O2SAT 99
[2024-10-07 03:45] VITALS: BP 117/70; TEMP 97.3; O2SAT 98
[2024-10-07 04:00] VITALS: BP 117/70; TEMP 97.3; O2SAT 98
[2024-10-07 05:30] LABS: HEMATOCRIT 41.8 % (42.0-52.0); HEMOGLOBIN 14.2 g/dl (13.5-17.5); MEAN CORPUSCULAR HEMOGLOBIN 29.3 pg (27.0-33.0); MEAN CORPUSCULAR VOLUME 86.2 fl (80.0-96.0); PLATELET COUNT, AUTOMATED 203 10^3/uL (150-450); RED BLOOD COUNT 4.85 10^6/uL (4.30-6.10); WHITE BLOOD COUNT 5.1 10^3/uL (4.0-10.0)
[2024-10-07 05:54] LABS: BLOOD UREA NITROGEN 16 MG/DL (9-23); CALCIUM LEVEL 9.5 MG/DL (8.5-10.1); CARBON DIOXIDE LEVEL 24 MMOL/L (20-31); CHLORIDE LEVEL 110 MMOL/L (98-107); CREATININE FOR GFR 0.91 MG/DL (0.70-1.30); GLOMERULAR FILTRATION RATE > 60.0 (>56); GLUCOSE, FASTING 108 MG/DL (60-100); POTASSIUM SERUM 4.1 MMOL/L (3.5-5.1); SODIUM LEVEL 141 MMOL/L (136-145)
[2024-10-07] MEDS: ATORVASTATIN 20 MG TAB PO SCH (08:10)
[2024-10-07] MEDS: ASPIRIN 81MG CHEW TABLET PO SCH (08:10)
[2024-10-07] MEDS: CLOPIDOGREL 75 MG TAB PO SCH (08:10)
[2024-10-07 08:18] VITALS: BP 120/82; TEMP 97.8; O2SAT 99
[2024-10-07] MEDS ORDERED: PROT1TAB2 PO (08:29)
[2024-10-07] MEDS ORDERED: ATOR80TA59 PO (08:29)
[2024-10-07] MEDS ORDERED: ASPI81CH33 PO (08:29)
[2024-10-07] MEDS ORDERED: NITR0.4S14 SL (08:29)
[2024-10-07] MEDS ORDERED: CLOP75TA99 PO (08:29)
[2024-10-07 18:07] LABS: HOMOCYST(E)INE SERUM 7.8 umol/L (<11.4)
[2024-10-08 10:46] LABS: DRVV SCREEN 34.3 SECONDS
[2024-10-08 10:51] LABS: PTT LUPUS TYPE ANTICOAG SCREEN 0.88 (0-1.20)
[2024-10-09 02:31] LABS: CARDIOLIPIN IGA ANTIBODY < 2.0 APL-U/mL (<20.0); CARDIOLIPIN IGG ANTIBODY < 2.0 GPL-U/mL (<20.0); CARDIOLIPIN IGM ANTIBODY 5.8 MPL-U/mL (<20.0)
== END 2024-10-07 11:59 | disposition home or self-care (01) ==
LOC: M ED 09:34 → M ED INP 11:15 → INTOOBSV 11:15 → M PCU 12:15
PROVIDERS: ADMIT Internal Medicine; ATTEND Internal Medicine
DX: R20.2 Paresthesia of skin (principal); R53.1 Weakness; E78.5 Hyperlipidemia, unspecified; I25.10 Atherosclerotic heart disease of native coronary artery without angina pectoris; Z98.61 Coronary angioplasty status; F10.20 Alcohol dependence, uncomplicated; Z79.02 Long term (current) use of antithrombotics/antiplatelets; Z79.82 Long term (current) use of aspirin; Z79.899 Other long term (current) drug therapy
CPT/HCPCS: 36415; 70450; 70496; 70498; 70551; 71045; 80047; 80048; 80061; 80076; 81240; 83036; 83090; 85025; 85027; 85300; 85301; 85302; 85305; 85306; 85610; 85652; 85730; 86140; 86147; 86850; 86900; 86901; 93005; 93041; 93306; 94760; 97161; 99285; Q9967

== ENCOUNTER → 2024-10-07 | Outpatient (CLI) | payer OTHER ==
[~2024-10-07] MED LIST changes: +ASPI81CH33 PO; +NITR0.4S14 SL; +PROT1TAB2 PO
== END ==
LOC: M EKG 12:34
PROVIDERS: ATTEND Internal Medicine
DX: G45.9 Transient cerebral ischemic attack, unspecified (principal)

== ENCOUNTER 2025-03-14 07:01 | Emergency (ER) | payer OTHER ==
[~2025-03-14] VITALS: Ht 188 cm; Wt 116.5 kg
[2025-03-14 07:05] VITALS: TEMP 98.2
[2025-03-14] MEDS ORDERED: BISO5TAB14 (07:11)
[2025-03-14] MEDS ORDERED: CYCL-707 PO (07:39)
[2025-03-14] MEDS: predniSONE 20 MG TAB PO ONE (08:58)
[2025-03-14] MEDS: LIDOCAINE 5% (LIDODERM) PATCH TD ONE (08:58)
[2025-03-14] MEDS: diazePAM 5MG TABLET PO ONE ×2 (08:59→10:15)
[2025-03-14] MEDS: KETOROLAC 60MG 2ML VIAL IM ONE (08:59)
[2025-03-14] MEDS ORDERED: MEDR4PAK PO (12:18)
[2025-03-14] MEDS ORDERED: NAPR-837 PO (12:18)
[2025-03-14] MEDS ORDERED: ASPE4PAD TOP (12:18)
[2025-03-14] MEDS ORDERED: METH-1165 PO (12:18)
[2025-03-14 12:38] VITALS: BP 125/79; O2SAT 99
== END 2025-03-14 12:38 | disposition home or self-care (01) ==
LOC: M ED 07:01
DX: M54.16 Radiculopathy, lumbar region (principal); M54.50 Low back pain, unspecified; I25.2 Old myocardial infarction; F17.200 Nicotine dependence, unspecified, uncomplicated; Z86.73 Personal history of transient ischemic attack (TIA), and cerebral infarction without residual deficits; Z79.899 Other long term (current) drug therapy; Z79.1 Long term (current) use of non-steroidal anti-inflammatories (NSAID)
CPT/HCPCS: 72110; 96372; 99283; J1885; J7512

== ENCOUNTER 2025-09-05 08:22 | Emergency (ER) | payer OTHER ==
[~2025-09-05] VITALS: Ht 188 cm; Wt 116.0 kg
[~2025-09-05 08:22] MED LIST changes: +ASPE4PAD TOP; -ASPI-655 PO; +ASPI-737 PO; +BISO5TAB14; +CYCL-707 PO; +MEDR4PAK PO; +METH-1165 PO; +NAPR-837 PO
[2025-09-05] MEDS ORDERED: ISOVUE-370 76% 100 ML VIAL As Ordered ONE (08:40)
[2025-09-05 08:55] LABS: BASO # 0.1 10^3/uL (0.0-0.2); BASO % 0.9 % (0.0-1.0); EOS # 0.2 10^3/uL (0.0-0.5); EOS % 3.3 % (0.0-3.0); LYMPH # 1.9 10^3/uL (1.5-5.0); LYMPH % 33.9 % (24.0-44.0); MONO # 0.5 10^3/uL (0.0-0.8); MONO % 9.7 % (2.0-8.0); NEUTROPHILS # 2.9 10^3/uL (1.5-8.5); NEUTROPHILS % 52.0 % (36.0-66.0); PLATELET COUNT, AUTOMATED 216 10^3/uL (150-450)
[2025-09-05 09:20] LABS: CALCIUM LEVEL 9.3 MG/DL (8.5-10.1); CARBON DIOXIDE LEVEL 28 MMOL/L (20-31); CHLORIDE LEVEL 107 MMOL/L (98-107); CREATININE FOR GFR 0.97 MG/DL (0.70-1.30); GLOMERULAR FILTRATION RATE > 90.0 (>56); POTASSIUM SERUM 4.4 MMOL/L (3.5-5.1); SODIUM LEVEL 142 MMOL/L (136-145)
[2025-09-05 09:25] LABS: INR 0.92
[2025-09-05] MEDS ORDERED: LIDO1PAD TOP (09:44)
[2025-09-05] MEDS ORDERED: HOME MED LIST COMPLETE! XX SCH (09:45)
[2025-09-05 16:30] VITALS: BP 111/67; TEMP 97.5; O2SAT 97
== END 2025-09-05 16:48 | disposition home or self-care (01) ==
LOC: M ED 08:22
DX: G43.909 Migraine, unspecified, not intractable, without status migrainosus (principal); I10 Essential (primary) hypertension; E78.5 Hyperlipidemia, unspecified; Z86.79 Personal history of other diseases of the circulatory system; Z79.899 Other long term (current) drug therapy
CPT/HCPCS: 36415; 70450; 70496; 70498; 70551; 71045; 80047; 80048; 85025; 85610; 85730; 86850; 86900; 86901; 93005; 93041; 94760; 99285; Q9967